=== PATIENT | female | born 1950 | race African-American/Black ===

== ENCOUNTER → 2016-06-23 15:11 | Outpatient (CLI) | payer MEDICARE ==
[~2016-06-23 15:11] MED LIST: CRANBERRY 400 M1 TA1 PO; CRESTOR20 MG PO; Demerol PO; ELIQUIS2.5 MG PO; FERROUS SULFAT325 MG PO; FLUTICASONE PRO16 GM NASAL; GLUCOPHAGE850 MG PO; HYDROCODONE-APA1 TAB PO; K-DUR20 MEQ PO; MULTIPLE VITAMI1 TA1 PO; MUPIROCIN22 GM TOPICAL; NEURONTIN600 MG PO; NOVOLOG100 U/M1 SC; SINGULAIR10 MG PO; SYMBICORT 16010.2 GM INH; VITAMIN D31000 UNIT PO; ZANTAC150 MG PO; ZYRTEC10 MG PO
[2016-07-01 16:32] VITALS: BMI 37.7
== END | disposition home or self-care (01) ==
LOC: D.LABREF 15:11
DX: M17.11 Unilateral primary osteoarthritis, right knee (principal); Z11.8 Encounter for screening for other infectious and parasitic diseases

== ENCOUNTER 2016-06-26 08:00 | Inpatient (IN) | payer MEDICARE ==
[~2016-06-26] VITALS: Ht 147.3 cm; Wt 81.8 kg
[~2016-06-26 08:00] MED LIST changes: -CRANBERRY 400 M1 TA1 PO; -Demerol PO; -ELIQUIS2.5 MG PO; -FLUTICASONE PRO16 GM NASAL; -K-DUR20 MEQ PO; -MULTIPLE VITAMI1 TA1 PO; -NOVOLOG100 U/M1 SC; -SYMBICORT 16010.2 GM INH; -VITAMIN D31000 UNIT PO
[2016-06-26 08:06] LABS: BASOPHILS 0.6 % (0.0-2.0); EOSINOPHILS 4.6 % (0-7); HEMATOCRIT 33.8 % (36.0-48.0); LYMPHOCYTES 40.7 % (15-50); MCH 26.5 pg (26.0-34.0); MCHC 32.5 g/dL (31.0-37.0); MCV 81.4 fL (80.0-100.0); MEAN PLATELET VOLUME 9.8 fL (7.4-10.4); MONOCYTES 14.8 % (2-11); NEUTROPHILS 39.3 % (40-80); PLATELET COUNT 232 10x3/uL (130-400); RBC 4.15 10x6/uL (4.00-5.40); WBC 4.8 10x3/uL (4.8-10.8)
[2016-06-26 08:20] LABS: APTT 29.6 SECONDS (22.8-39.4); INR 1.09 (0.85-1.17); PROTIME 13.9 SECONDS (11.6-15.0)
[2016-06-26 08:22] LABS: ANION GAP 11.4 mmol/L (8-16); CALCIUM 9.3 mg/dL (8.5-10.1); CARBON DIOXIDE 29.8 mmol/L (21.0-32.0); CREATININE - SERUM 1.1 mg/dL (0.6-1.3); POTASSIUM - SERUM 4.2 mmol/L (3.5-5.1)
[2016-06-26 08:51] LABS: APPEARANCE HAZY (CLEAR); BACTERIA FEW /hpf (NONE SEEN); BILIRUBIN NEGATIVE (NEGATIVE); COLOR YELLOW (YELLOW); EPITHELIAL CELLS OCC /hpf (0-5); GLUCOSE NEGATIVE (NEGATIVE); KETONE NEGATIVE (NEGATIVE); LEUKOCYTE ESTERASE NEGATIVE (NEGATIVE); NITRITE NEGATIVE (NEGATIVE); PROTEIN TRACE mg/dL (NEGATIVE); RED CELLS - URINE OCC /hpf (0-5); UROBILINOGEN NORMAL (NORMAL); WHITE CELLS - URINE OCC /hpf (0-5)
[2016-06-26] MEDS ORDERED: FLUTICASONE PRO16 GM NASAL (12:47)
[2016-06-26] MEDS ORDERED: K-DUR20 MEQ PO (12:48)
[2016-06-26] MEDS ORDERED: NOVOLOG100 U/M1 SC (12:48)
[2016-06-26] MEDS ORDERED: VITAMIN D31000 UNIT PO (12:49)
[2016-06-26] MEDS ORDERED: SYMBICORT 16010.2 GM INH (12:49)
[2016-06-26] MEDS ORDERED: MULTIPLE VITAMI1 TA1 PO (12:56)
[2016-06-26] MEDS ORDERED: CRANBERRY 400 M1 TA1 PO (12:56)
[2016-07-01 09:40] VITALS: BP 156/100; BMI 37.7
--- NOTE | 2016-07-01 13:57 | NUR ---
ANESTHESIA NOTIFIED OF PTS CONTINUED PAIN TO SIDE OF RT KNEE AFTER 2MG OF DILAUDID. ANESTHESIA AT BS, REPEAT BLOCK IN PROGRESS.
--- NOTE | 2016-07-01 14:21 | NUR ---
AFTER BLOCK,PTS PAIN NOW DOWN TO A 2/10. WILL TRANSFER TO ROOM.
[2016-07-01 14:40] VITALS: BP 127/70
--- NOTE | 2016-07-01 14:42 | NUR ---
RECIEVED TO ROOM 2208 FROM RECOVERY ROOM AWAKE AND ALERT PT VITAL SIGNS WITHIN NORMAL LIMITS STATES PAIN LEVEL 0 AT THIS TIME HAD FEM POP BLOCK. WILL MONITOR,.
[2016-07-01 16:32] VITALS: BP 137/69; Ht 147.3 cm; Wt 81.8 kg
--- NOTE | 2016-07-01 19:20 | NUR ---
PATIENT'S SON IS AT BEDSIDE. BROUGHT PATIENT WATER FOR HER CPAP MACHINE PER HER REQUEST. PATIENT DENIES OTHER NEEDS AT THIS TIME. BED IN LOWEST POSITION AND CALL LIGHT WITHIN REACH.
--- NOTE | 2016-07-01 19:35 | NUR ---
CPM IN PLACE MARKETING REPRESENTATIVE DILAUDID FOR PAIN CONTROL. RESTING WELL
[2016-07-01 21:00] VITALS: BP 133/70
[2016-07-02 01:00] VITALS: BP 122/66
--- NOTE | 2016-07-02 01:30 | NUR ---
NEVER RECEIVED CALL BACK FROM CHRISTOPHER NORTON, BUT TEMP DOWN TO 98.2.
--- NOTE | 2016-07-02 02:00 | NUR ---
PATIENT SLEEPING WITH NO DISTRESS NOTED. NEVER RECEIVED CALL BACK FROM CHRISTOPHER NORTON BUT TEMP IS DOWN TO 100.8.
[2016-07-02 05:00] VITALS: BP 149/77
[2016-07-02 06:13] LABS: BASOPHILS 0.1 % (0.0-2.0); EOSINOPHILS 0 % (0-7); HEMOGLOBIN 9.8 g/dL (12-16); IMMATURE GRANULOCYTES 0.1 % (0-5); LYMPHOCYTES 14.6 % (15-50); MCH 26.9 pg (26.0-34.0); MCHC 32.7 g/dL (31.0-37.0); MCV 82.4 fL (80.0-100.0); MEAN PLATELET VOLUME 10.4 fL (7.4-10.4); MONOCYTES 10.1 % (2-11); NEUTROPHILS 75.1 % (40-80); PLATELET COUNT 190 10x3/uL (130-400); RBC 3.64 10x6/uL (4.00-5.40); RDW 16.2 % (11.5-14.5); WBC 7.4 10x3/uL (4.8-10.8)
[2016-07-02 06:32] LABS: ALBUMIN 3.2 g/dL (3.4-5.0); ANION GAP 13.7 mmol/L (8-16); BILIRUBIN - TOTAL 0.29 mg/dL (0.2-1.3); CALCIUM 8.4 mg/dL (8.5-10.1); CARBON DIOXIDE 26.2 mmol/L (21.0-32.0); CREATININE - SERUM 1.1 mg/dL (0.6-1.3); POTASSIUM - SERUM 3.9 mmol/L (3.5-5.1); PROTEIN - SERUM 6.2 g/dL (6.4-8.2)
--- NOTE | 2016-07-02 07:30 | NUR ---
RECIEVED PT DURING WALKING ROUNDS, PT RESTING COMFORTABLY IN BED WITH COMPLAINTS OF PAIN OF A 7 ON A SCALE OF 1-10. INSTRUCTED PT TO USE PICKER AND SORTER LOAD AND UNLOAD PUMP. PT NOT ON CPM AT THIS TIME BECAUSE SHE HAS BEEN TRYING TO URINATE. ASSESSMENT DONE PER FLOWSHEET. FORKLIFT MATERIAL HANDLER PREFORMING BATH AT THIS TIME AND WILL PLACE PT ON CPM AFTER BATH. BED IN LOW POSTION AND FORKLIFT MATERIAL HANDLER AT BEDSIDE. WILL CONTINUE TO MONITOR.
[2016-07-02 08:00] VITALS: BP 162/73
--- NOTE | 2016-07-02 08:30 | NUR ---
SPOKE WITH CLARISA DONG AND WAS TOLD PT COULD WAIT UNTIL THIS EVENING TO GO ON CPM DUE TO PHYSICAL THERAPY ANOUT TO BE IN TO WORK WITH PT.
--- NOTE | 2016-07-02 10:12 | NUR ---
AWAKE AND ALERT. ORIENTED X3. NO C/O AT THIS TIME. SITTING UP IN CHAIR AT BEDSIDE. DRESSING TO RIGHT KNEE IS DRY AND INTACT. DENIES NEEDS. VERY LABILE AT THIS TIME.
[2016-07-02 12:30] VITALS: BP 160/83
--- NOTE | 2016-07-02 12:30 | NUR ---
RECIEVED ORDER FOR PO DEMEROL AT THIS TIME VIA TELEPHONE ORDER FROM DR. DIAZ.
--- NOTE | 2016-07-02 12:45 | NUR ---
DEMEROL PO GIVEN PER ORDER AT THIS TIME FOR PAIN OF A 9 ON A SCALE OF 1-10. PLATFORM BEATER DISCONTINUED AND WASTED IN PYXIS. IV FLUIDS D/C AND IV SALINE LOCKED. PT SITTING IN CHAIR. CALL LIGHT WITHIN REACH. WILL CONTINUE TO MONITOR.
--- NOTE | 2016-07-02 15:06 | NUR ---
* Is the patient Alert and Oriented? Yes 0 * How many steps to enter\exit or inside your home? 1 0 * PCP Dr. Rodriguez 0 * Pharmacy [facility] 0 * Preadmission Environment Home Alone 0 * ADLs Independent 0 * Equipment Cane CPAP Nebulizer 0 * List name and contact numbers for known caregivers / representatives who currently or will assist patient after discharge: Srinath Caruso [phone] 0 * Additional services required to return to the preadmission environment? Yes 0 * Can the patient safely return to the preadmission environment? Yes 0 * Has this patient been hospitalized within the prior 30 days at any hospital? No 07/02/2016 15:06 DCP: Discharge Planning Patient Name: MARBIN WILKINS Admission Status: Elective Accout number: [id number] Admission Date: 07-01-2016 : 1950 Admission Diagnosis:UNILATERAL PRIMARY OSTEOARTHRITIS, RIGHT KNEE Attending: KATHRYN Current LOS: 1 Anticipated DC Date: 07-04-2016 Planned Disposition: Penitentiary Facility Primary Insurance: MEDICARE A & B Discharge Planning Comments: CM met with patient to assess DC plans/needs. Patient states she lives at home with her son, Shady. She reports she was independent with ADL's prior to admission. She has a seated 4 wheeled walker, a cane, nebulizer & CPAP. Discussed dc options - she states she will not be able to return home at discharge - she states she will be alone all day. PC to Shady dumont. He states he works 2 jobs and will patient will be home alone about 20 hours per day. Discussed SNF options. She has chosen [facility]. Initial referral will be sent. Anticipate dc 07/03. CM will follow.
[2016-07-02 16:02] VITALS: BP 169/91
--- NOTE | 2016-07-02 16:30 | NUR ---
PT GIVEN ZOFRAN AT THIS TIME FOR NAUSEA. PT STATED SHE HAS BEEN EXPERIENCING AN OCCASIONAL COUGH AND SHE FEELS THAT IT IS WHAT HAS LEAD TO HER NAUSEA. BED IN LOW POSITION AND CALL LIGHT WITHIN REACH. WILL CONTINUE TO MONTIOR.
--- NOTE | 2016-07-02 18:00 | NUR ---
CPM ON AT THIS TIME, PT EXPERIENCING A LOT OF PAIN WHEN MOVING, ADMINISTERED MEDICATION PER ORDER PRIOR TO PLACING HER ON THE CPM. CALL PLACED TO DR. DIAZ ABOUT PT PAIN NOT BEING CONTROLLED. RECIEVED AN ORDER FOR TORADOL AFTER SPEAKING WITH PHARMACY, TORADOL IS UNABLE TO GIVE MEDICATION DUE TO ALLERGIES. DR. DIAZ GAVE ORDERS TO GIVE A ONE TIME DOSE OF DILAUDID. I WENT BACK INTO THE ROOM TO DISCUSS WITH PT AND PT WAS ASLEEP. WILL CONTINUE TO MONITOR.
--- NOTE | 2016-07-02 19:00 | NUR ---
PATIENT SLEEPING SUPINE IN BED ON CPM. AROUSES TO VOICE BUT IS VERY DROWSY. HOB 30 DEGREES. RR EVEN AND UNLABORED. 0 S/S OF DISTRESS. IV TO LEFT UPPER ARM S/L WITH NO REDNESS OR SWELLING. BANDAGE TO RIGHT KNEE CDI. SCD TO LLE. B/A ON. SRX3. BED LOW. CALL LIGHT WITHIN REACH.
[2016-07-02 22:09] VITALS: BP 182/87
--- NOTE | 2016-07-02 23:40 | NUR ---
ASSISTED PATIENT TO BATHROOM AND BACK TO BED. ASSESSMENT COMPLETE. NIGHTTIME MEDS GIVEN. 2 UNITS HUMALOG GIVEN FOR BS OF 191. 50MG DEMEROL GIVEN FOR PAIN. PATIENT HAD TEMP OF 102.9. PAGED CHRISTOPHER NORTON. UNCOVERED PATIENT AND PLACED ICE BEHIND NECK AND UNDER ARMS.
[2016-07-03 01:48] VITALS: BP 143/80
--- NOTE | 2016-07-03 03:00 | NUR ---
PATIENT SLEEPING WITH NO DISTRESS NOTED. CALL LIGHT WITHIN REACH.
[2016-07-03 04:00] VITALS: BP 136/80
[2016-07-03 05:36] LABS: BASOPHILS 0.1 % (0.0-2.0); EOSINOPHILS 0 % (0-7); HEMATOCRIT 28.7 % (36.0-48.0); HEMOGLOBIN 9.2 g/dL (12-16); IMMATURE GRANULOCYTES 0.2 % (0-5); LYMPHOCYTES 12.7 % (15-50); MCH 26.1 pg (26.0-34.0); MCHC 32.1 g/dL (31.0-37.0); MCV 81.5 fL (80.0-100.0); MEAN PLATELET VOLUME 9.9 fL (7.4-10.4); MONOCYTES 7.1 % (2-11); NEUTROPHILS 79.9 % (40-80); PLATELET COUNT 153 10x3/uL (130-400); RBC 3.52 10x6/uL (4.00-5.40); RDW 16.4 % (11.5-14.5)
[2016-07-03 05:42] LABS: WBC 12.6 10x3/uL (4.8-10.8)
[2016-07-03 06:02] LABS: ALBUMIN 2.9 g/dL (3.4-5.0); ANION GAP 12.5 mmol/L (8-16); BILIRUBIN - TOTAL 0.6 mg/dL (0.2-1.3); CALCIUM 8.7 mg/dL (8.5-10.1); CARBON DIOXIDE 27.6 mmol/L (21.0-32.0); CREATININE - SERUM 0.9 mg/dL (0.6-1.3); POTASSIUM - SERUM 4.1 mmol/L (3.5-5.1); PROTEIN - SERUM 5.5 g/dL (6.4-8.2)
--- NOTE | 2016-07-03 07:05 | NUR ---
SLEEPING AT THIS TIME. RESPIRATIONS EVEN AND NON LABORED. CPM TO RIGHT KNEE ON AND IN WORKING ORDER. SCD'S ON AND IN WORKING ORDER. BED ALARM ON AND SRX3 WITH BED IN LOWEST POSITION AND WHEELS LOCKED. CALL LIGHT IN REACH, WILL CONTINUE WITH PLAN OF CARE.
--- NOTE | 2016-07-03 08:20 | NUR ---
SCHEDULED MEDICATIONS ADMINISTERED AT THIS TIME. ASSESSMENT PERFORMED PER FLOWSHEET. UP IN CHAIR PER PHYSICAL THERAPY. CALL LIGHT IN REACH, DENIES FURTHER NEEDS AT THIS TIME. WILL CONTINUE WITH PLAN OF CARE.
[2016-07-03 08:28] VITALS: BP 162/78
--- NOTE | 2016-07-03 10:50 | NUR ---
REMAINS UP IN CHAIR AT THIS TIME. SLEEPING WITH RESPIRATIONS EVEN AND NON LABORED. CALL LIGHT IN REACH, WILL CONTINUE WITH PLAN OF CARE.
[2016-07-03 12:04] VITALS: BP 158/72
--- NOTE | 2016-07-03 12:20 | NUR ---
07/03/2016 12:18 DCP: Discharge Planning Patient Name: MARBIN WILKINS Encounter No: [id number] : 1950 Primary Insurance: MEDICARE A & B Anticipated DC Date: 07-04-2016 Planned Disposition: [facility] Facility External Planned Provider: [facility] DCP follow-up note: Rec'd call from Sherie with [facility]. Patient has been accepted. Anticipate transfer to a penitentiary bed tomorrow. Patient and family in agreement with discharge plan. No changes to plan. Case management will follow and assist as needed. Wendie Kaur
--- NOTE | 2016-07-03 12:54 | NUR ---
SITTING UP IN CHAIR. RESTING QUIETLY EYES CLOSED. RESPIRATIONS EVEN NONLABORED WITH NO ACUTE DISTRESS NOTED. NO SIGNS OF ACUTE PAIN. CALL LIGHT WITHIN REACH.
--- NOTE | 2016-07-03 13:25 | NUR ---
AMBULATING WITH PHYSICAL THERAPY AT THIS TIME. REMINDED PT TO USE INCENTIVE SPIROMETER 10X AN HOUR WHILE AWAKE.
--- NOTE | 2016-07-03 15:00 | NUR ---
USING INCENTIVE SPIROMETER AT THIS TIME WITH INSPIRATORY VOLUME OF 1,000ML. DENIES FURTHER NEEDS AT THIS TIME. CALL LIGHT IN REACH, WILL CONTINUE WITH PLAN OF CARE.
[2016-07-03 15:48] VITALS: BP 161/85
--- NOTE | 2016-07-03 17:10 | NUR ---
FSBS 211, COVERED WITH 4 UNITS OF HUMALOG PER SLIDING SCALE. PRN DEMEROL ADMINISTERED PER ORDER FOR PAIN 12/11. DENIES NEEDS AT THIS TIME. SCD'S AND BED ALARM ON. CALL LIGHT IN REACH, WILL CONTINUE WITH PLAN OF CARE.
--- NOTE | 2016-07-03 19:00 | NUR ---
PATIENT SLEEPING ON CPM. HOB 30 DEGREES. AROUSES TO VOICE. STATES PAIN IS A 9/10. IV TO RIGHT UPPER ARM S/L WITH NO REDNESS OR SWELLING. DRESSING TO RIGHT KNEE CDI. SCD'S ON. TELEMETRY ON. B/A ON. SRX3. BED LOW. CALL LIGHT WITHIN REACH.
--- NOTE | 2016-07-03 23:15 | NUR ---
ASSISTED PATIENT TO BSC AND BACK TO BED. NIGHTTIME MEDS GIVEN. 2 UNITS HUMALOG GIVEN FOR BS OF 168. DEMEROL GIVEN FOR PAIN. WILL REASSESS.
[2016-07-03 23:36] LABS: APPEARANCE CLEAR (CLEAR); BILIRUBIN NEGATIVE (NEGATIVE); COLOR YELLOW (YELLOW); GLUCOSE NEGATIVE (NEGATIVE); KETONE NEGATIVE (NEGATIVE); LEUKOCYTE ESTERASE NEGATIVE (NEGATIVE); NITRITE NEGATIVE (NEGATIVE); PROTEIN NEGATIVE (NEGATIVE); UROBILINOGEN NORMAL (NORMAL)
--- NOTE | 2016-07-04 04:08 | NUR ---
PATIENT SLEEPING WITH CPAP ON. NO NEEDS AT THIS TIME.
[2016-07-04 05:24] LABS: BASOPHILS 0.1 % (0.0-2.0); EOSINOPHILS 0.1 % (0-7); HEMATOCRIT 28.9 % (36.0-48.0); HEMOGLOBIN 9.2 g/dL (12-16); IMMATURE GRANULOCYTES 0.3 % (0-5); LYMPHOCYTES 15.1 % (15-50); MCH 25.8 pg (26.0-34.0); MCHC 31.8 g/dL (31.0-37.0); MCV 81.2 fL (80.0-100.0); MEAN PLATELET VOLUME 10.3 fL (7.4-10.4); MONOCYTES 10.3 % (2-11); NEUTROPHILS 74.1 % (40-80); PLATELET COUNT 153 10x3/uL (130-400); RBC 3.56 10x6/uL (4.00-5.40); RDW 16.5 % (11.5-14.5); WBC 10.1 10x3/uL (4.8-10.8)
[2016-07-04 05:54] LABS: ALBUMIN 2.9 g/dL (3.4-5.0); ALKALINE PHOSPHATASE 102 U/L (46-116); ALT (SGPT) 27 U/L (10-68); BILIRUBIN - TOTAL 0.61 mg/dL (0.2-1.3); CALC OSMOLALITY 270 mosm/kg (275-300); CALCIUM 10.2 mg/dL (8.5-10.1); CARBON DIOXIDE 27.9 mmol/L (21.0-32.0); CHLORIDE - SERUM 101 mmol/L (98-107); CREATININE - SERUM 0.7 mg/dL (0.6-1.3); GLUCOSE 135 mg/dL (74-106); POTASSIUM - SERUM 4.1 mmol/L (3.5-5.1); PROTEIN - SERUM 6.5 g/dL (6.4-8.2); SODIUM 135 mmol/L (136-145); UREA NITROGEN 10 mg/dL (7-18); eGFR NON AFRICAN AMERICAN 88 mL/min (90-120)
--- NOTE | 2016-07-04 07:47 | NUR ---
PT RECEIVED SITTING UP IN BED WATCHING TELEVISION. ALERT AND ORIENTED X4. LUNG SOUNDS CLEAR BILATERALLY. ABD SOUNDS ACTIVE IN ALL FOUR QUADRANTS. ABD SOFT AND NONTENDER UPON PALPATION. STATES LAST BM WAS YESTERDAY. PT ASSISTED TO BED GIMENEZ. CPM CURRENTLY IN USE. DENIES ANY OTHER NEEDS AT THIS TIME. CALL LIGHT IN REACH.
[2016-07-04 08:03] VITALS: BP 142/85
[2016-07-04] MEDS ORDERED: ELIQUIS2.5 MG PO (08:40)
[2016-07-04] MEDS ORDERED: Demerol PO (08:52)
--- NOTE | 2016-07-04 09:10 | NUR ---
WORKING WITH PHYSICAL THERAPY AT THIS TIME. DENIES QUESTIONS OR CONCERNS. RESPIRATIONS EVEN AND NON LABORED. CALL LIGHT IN REACH, WILL CONTINUE WITH PLAN OF CARE.
--- NOTE | 2016-07-04 11:37 | NUR ---
PT CURRENTLY SITTING UP IN ROOM WATCHING TELEVISION. NO S/S OF DISTRESS NOTED. PT DENIES NEEDS AT THIS TIME. BED IN LOW POSITION. SIDE RAILS UP X2. CALL LIGHT AND H20 IN REACH.
--- NOTE | 2016-07-04 13:47 | NUR ---
PT CURRENTLY SITTING UP IN ROOM WATCHING TELEVISION WITH SON. NO S/S OF DISTRESS NOTED. PT DENIES NEEDS AT THIS TIME. CALL LIGHT AND H20 IN REACH.
--- NOTE | 2016-07-04 15:07 | NUR ---
07/04/2016 14:44 DCP: Discharge Planning Patient Name: MARBIN WILKINS Encounter No: [id number] : 1950 Primary Insurance: MEDICARE A & B Anticipated DC Date: 07-04-2016 Planned Disposition: [facility] Facility External Planned Provider: [facility] DCP follow-up note: DC order rec'd. Patient and family in agreement with discharge plan. Patient\family notified of anticipated dc time. Patient will be transported by facility van - roller picker time approx. 1500. Nursing to call report to [phone]. Patient is discharging to a half-way bed. Wendie Kaur
--- NOTE | 2016-07-04 15:31 | NUR ---
PT DISCHARGED TO [facility]. GONE OVER DISCHARGE INSTRUCTIONS WITH RESIDENT, RESIDENT VERBALIZED UNDERSTANDING. DISCHARGE PAPERWORK GIVEN TO LODI STAFF MEMBER. RESIDENT LEFT WITH SON AND LODI ADMINISTRATIVE ASSISTANCE VIA WHEELCHAIR.
--- NOTE | 2016-07-04 15:33 | NUR ---
REPORT CALLED INTO [facility] WITH LAMBERT GALO.
--- NOTE | 2016-07-06 10:16 | OP ---
PATIENT NAME: MARBIN WILKINS MEDICAL RECORD: [id number] :[birth year] LOCATION:D.MS [id number] ADMISSION DATE:07/01/16 SURGEON: MOHINI DEL RIO MD DATE OF OPERATION: 07/01/2016 PREOPERATIVE DIAGNOSIS: Right knee degenerative joint disease. POSTOPERATIVE DIAGNOSIS: Right knee degenerative joint disease. PROCEDURE PERFORMED: Right total knee arthroplasty. SURGEON: Gordon Del Rio MD ANESTHESIA: General with a block for postop pain. CONDITION: She tolerated the procedure well, was transferred to the recovery room in stable condition at termination of the procedure. INDICATIONS: This is a 66-year-old female with advanced degenerative changes of her knee. She has been [id number] for quite some time. She is no longer tolerating injections and medicines or therapy. She presents at this time for a total knee replacement. We have discussed risks, benefits, and alternatives with her. She understands and wishes to proceed. OPERATIVE REPORT: The patient was taken to the operating room and placed in supine position. General anesthesia was obtained. She did have the block placed in the preop holding area. In the operating room, the right knee was confirmed to be the correct knee, following which she was prepped and draped in normal fashion. After the prep and drape, she had a secondary ChloraPrep and then she had clear dressing placed since she is allergic to iodine. She exsanguinated with an Carlos Alberto wrap. Tourniquet was elevated to 350. Procedure was then begun by making a midline incision followed by a medial parapatellar incision. Fat pad was excised. The medial soft tissue sleeve was elevated. I then entered the femur with a drill, placed the guide and made a distal femoral cut. It was sized to a 67.5, made the rest of the distal femoral cuts. She has a significant ____ I therefore went ahead and did a posterior stabilized. I did the box cut at this juncture for 67.5. I then subluxed the tibia forward, placed the guide and made the proximal tibial cut. This was sized at a 71, it was placed both components, took the knee through range of motion, then marked this following which, I punched and prepped for a 71 tibia. I removed significant posterior osteophytes as well. The backside of the patella was taken off. This was measured at a 31 three peg holes were drilled. I then proceeded to copiously irrigate the knee, following which, I cemented into place a 67.5 PS knee with a 71 tibia and a 12 poly while the cement dried. A 31 three peg hole patellar button was placed. The leg was held in extension while the cement dried. Once the cement was dry, the excess cement was removed. She was copiously irrigated and then the final 12 poly was placed. She felt very stable. She was irrigated and then closed with a #1 barbed PDS, then a 2-0 Vicryl, then ashley. She was awakened and transferred to recovery room in stable condition, having tolerated the procedure well. TRANSINT:[id number] Voice Confirmation ID: [id number] DOCUMENT ID: [id number] OPERATIVE REPORT [id number] MARBIN WILKINS, MOHINI KAUR MD at 1016 CC: [id number] DICTATION DATE: 07/01/16 1356 CLINICAL TRIAL HEAD: 07/01/16 2216 DIS IN 07/04/16 [place] [id number] [place] [address]
--- NOTE | 2016-08-01 12:12 | DS ---
PATIENT:MARBIN WILKINS :[birth year] MEDICAL RECORD: [id number] DISCHARGE SUMMARY ADMISSION DATE: 07/01/16 DISCHARGE DATE: 07/04/16 DATE OF ADMISSION: 07/01/2016. DATE OF DISCHARGE: 07/04/2016. ADMITTING DIAGNOSIS: Right knee degenerative joint disease. DISCHARGE DIAGNOSES: Right knee degenerative joint disease plus acute blood loss anemia. PROCEDURE PERFORMED: Right total knee arthroplasty. ADMITTING PHYSICIAN: Gordon Del Rio MD. HISTORY OF PRESENT ILLNESS: A pleasant 66-year-old female with advanced degenerative changes of her right knee. She came into the hospital and underwent a right total knee arthroplasty. She overall did very well with her procedure. It was felt by the 3rd that she could be discharged to [facility] to continue on rehab for the total knee arthroplasty. She was going to continue on Eliquis for anticoagulation therapy. Continue on her pain medications and see me back in the office in about 2 weeks. She was to call if she is having any problems. We discussed this discharge with discharge diagnosis of right knee degenerative joint disease and postop acute blood loss anemia. PLAN: To see us in 2 weeks' time. TRANSINT:[id number] Voice Confirmation ID: [id number] DOCUMENT ID: [id number] MOHINI DEL RIO MD at 1212 CC: [id number] DICTATION DATE: 07/22/16 1430 READING SPECIALIST: 07/23/16 0416 DIS IN 07/04/16 [place] [id number] [place] [id number]
== END 2016-07-04 15:37 | DRG 470 ==
LOC: D.SDCHOLD 07-01 08:00 → D.MS 07-01 08:15 → D.SDCHOLD 07-01 10:00 → D.MS 07-01 13:46
PROVIDERS: Emergency Medicine; ADMIT Orthopaedic Surgery Sports Medicine
PROC: 0SRC0J9 Replacement of Right Knee Joint with Synthetic Substitute, Cemented, Open Approach (ICD-10-PCS; principal; 2016-07-01 10:30)
DX: M17.11 Unilateral primary osteoarthritis, right knee (principal); D62 Acute posthemorrhagic anemia; E11.65 Type 2 diabetes mellitus with hyperglycemia; E11.40 Type 2 diabetes mellitus with diabetic neuropathy, unspecified; G47.33 Obstructive sleep apnea (adult) (pediatric); E78.5 Hyperlipidemia, unspecified; K21.9 Gastro-esophageal reflux disease without esophagitis

== ENCOUNTER → 2016-08-27 11:06 | Outpatient (CLI) | payer MEDICARE ==
[2016-07-01 16:32] VITALS: BMI 37.7
[~2016-08-27 11:06] MED LIST changes: +CRANBERRY 400 M1 TA1 PO; +Demerol PO; +ELIQUIS2.5 MG PO; +FLUTICASONE PRO16 GM NASAL; +K-DUR20 MEQ PO; +MULTIPLE VITAMI1 TA1 PO; +NOVOLOG100 U/M1 SC; +SYMBICORT 16010.2 GM INH; +VITAMIN D31000 UNIT PO
== END | disposition home or self-care (01) ==
LOC: D.LABREF 11:06
DX: M17.12 Unilateral primary osteoarthritis, left knee (principal)

== ENCOUNTER → 2016-11-11 13:42 | Outpatient (CLI) | payer MEDICARE ==
[2016-07-01 16:32] VITALS: BMI 37.7
[~2016-11-11 13:42] MED LIST changes: +PROTONIX40 MG PO; +VITAMIN B-12500 MCG PO
== END | disposition home or self-care (01) ==
LOC: D.LABREF 13:42
DX: M17.12 Unilateral primary osteoarthritis, left knee (principal); Z11.8 Encounter for screening for other infectious and parasitic diseases

== ENCOUNTER 2016-11-12 13:00 | Outpatient (CLI) | payer MEDICARE ==
[2016-07-01 16:32] VITALS: BMI 37.7
[2016-11-12 09:36] LABS: ANION GAP 14.2 mmol/L (8-16); CARBON DIOXIDE 27.9 mmol/L (21.0-32.0); CREATININE - SERUM 1.2 mg/dL (0.6-1.3); POTASSIUM - SERUM 4.1 mmol/L (3.5-5.1)
[2016-11-12 10:15] LABS: APPEARANCE CLEAR (CLEAR); COLOR YELLOW (YELLOW)
[2016-11-12 10:16] LABS: BACTERIA FEW /hpf (NONE SEEN); BILIRUBIN NEGATIVE (NEGATIVE); GLUCOSE NEGATIVE (NEGATIVE); KETONE NEGATIVE (NEGATIVE); LEUKOCYTE ESTERASE 1+ (NEGATIVE); NITRITE NEGATIVE (NEGATIVE); PROTEIN NEGATIVE (NEGATIVE); SPECIFIC GRAVITY 1.015 (1.005-1.020); UROBILINOGEN NORMAL (NORMAL)
[2016-11-12 10:17] LABS: MUCUS <1+ /lpf (NONE SEEN); RED CELLS - URINE RARE /hpf (0-5)
[2016-11-12 10:38] LABS: BASOPHILS 0.3 % (0-2); EOSINOPHILS 2.6 % (0-7); HEMATOCRIT 36.3 % (36.0-48.0); HEMOGLOBIN 11.8 g/dL (12-16); IMMATURE GRANULOCYTES 0.1 % (0-5); LYMPHOCYTES 23.1 % (15-50); MCH 26.2 pg (26.0-34.0); MCHC 32.5 g/dL (31.0-37.0); MCV 80.7 fL (80.0-100.0); MEAN PLATELET VOLUME 10.5 fL (7.4-10.4); MONOCYTES 5.7 % (2-11); NEUTROPHILS 68.2 % (40-80); PLATELET COUNT 186 10x3/uL (130-400); WBC 6.8 10x3/uL (4.8-10.8)
[2016-11-12 10:45] LABS: INR 1.02 (0.85-1.17); PROTIME 13.1 SECONDS (11.6-15.0)
[2016-11-12 10:47] LABS: APTT 29.4 SECONDS (22.8-39.4)
== END 2016-11-12 23:59 | disposition home or self-care (01) ==
LOC: D.PAN 13:00 → D.SDCHOLD 11-18 07:30 → EDSTATUS 11-18 08:30 → D.SDCHOLD 11-18 08:30
PROVIDERS: Orthopaedic Surgery
DX: M19.90 Unspecified osteoarthritis, unspecified site (principal); Z01.810 Encounter for preprocedural cardiovascular examination; Z01.811 Encounter for preprocedural respiratory examination; Z01.812 Encounter for preprocedural laboratory examination

== ENCOUNTER 2016-11-16 10:29 | Emergency (ER) | payer MEDICARE ==
[2016-07-01 16:32] VITALS: BMI 37.7
[2016-11-16 13:27] LABS: BASOPHILS 0.2 % (0-2); EOSINOPHILS 0.2 % (0-7); HEMATOCRIT 36.2 % (36.0-48.0); HEMOGLOBIN 11.7 g/dL (12-16); IMMATURE GRANULOCYTES 0.8 % (0-5); MCH 25.9 pg (26.0-34.0); MCHC 32.3 g/dL (31.0-37.0); MCV 80.1 fL (80.0-100.0); MEAN PLATELET VOLUME 10.8 fL (7.4-10.4); MONOCYTES 9.6 % (2-11); NEUTROPHILS 68.2 % (40-80); PLATELET COUNT 185 10x3/uL (130-400); RBC 4.52 10x6/uL (4.00-5.40); RDW 16.3 % (11.5-14.5); WBC 10.1 10x3/uL (4.8-10.8)
[2016-11-16 13:40] LABS: ALBUMIN 3.1 g/dL (3.4-5.0); BILIRUBIN - TOTAL 0.27 mg/dL (0.2-1.3); CALCIUM 10.5 mg/dL (8.5-10.1); CARBON DIOXIDE 27.1 mmol/L (21.0-32.0); CREATININE - SERUM 1.8 mg/dL (0.6-1.3); POTASSIUM - SERUM 4.1 mmol/L (3.5-5.1); PROTEIN - SERUM 6.7 g/dL (6.4-8.2)
== END 2016-11-16 19:17 | disposition home or self-care (01) ==
LOC: D.ER 10:29
PROVIDERS: Nurse Practitioner Family
DX: J06.9 Acute upper respiratory infection, unspecified (principal); M54.2 Cervicalgia; R59.0 Localized enlarged lymph nodes; E11.9 Type 2 diabetes mellitus without complications; I10 Essential (primary) hypertension

== ENCOUNTER → 2016-12-08 10:55 | Outpatient (CLI) | payer MEDICARE ==
[2016-07-01 16:32] VITALS: BMI 37.7
== END | disposition home or self-care (01) ==
LOC: D.RT 11-25 08:00 → D.LAB 11-25 09:00 → D.RT 10:55
DX: J45.909 Unspecified asthma, uncomplicated (principal); R53.83 Other fatigue

== ENCOUNTER → 2017-11-12 11:57 | Outpatient (CLI) | payer MEDICARE ==
[2016-07-01 16:32] VITALS: BMI 37.7
[~2017-11-12 11:57] MED LIST changes: +ASCORBIC ACID500 MG PO; +GINKGO BILOBA120 MG PO; +GLIMEPIRIDE1 MG PO; +LYRICA75 MG PO; +MYRBETRIQ25 MG PO; +PROVIGIL200 MG PO; +XARELTO10 MG PO
== END | disposition home or self-care (01) ==
LOC: D.LABREF 11:57
DX: M17.12 Unilateral primary osteoarthritis, left knee (principal); Z11.8 Encounter for screening for other infectious and parasitic diseases

== ENCOUNTER → 2017-12-07 16:06 | Outpatient (CLI) | payer MEDICARE ==
[2016-07-01 16:32] VITALS: BMI 37.7
== END | disposition home or self-care (01) ==
LOC: D.CT 16:06
DX: R91.8 Other nonspecific abnormal finding of lung field (principal)

== ENCOUNTER → 2018-01-07 19:10 | Outpatient (CLI) | payer MEDICARE ==
[2016-07-01 16:32] VITALS: BMI 37.7
== END | disposition home or self-care (01) ==
LOC: D.MAMMO 15:30
DX: Z12.31 Encounter for screening mammogram for malignant neoplasm of breast (principal)

== ENCOUNTER 2018-02-18 11:14 | Outpatient (CLI) | payer MEDICARE ==
[~2018-02-18] VITALS: Ht 144.8 cm; Wt 88.2 kg
--- NOTE | ~2018-02-18 | OP ---
PATIENT NAME: MARBIN WILKINS MEDICAL RECORD: [id number] :[birth year] LOCATION:D.CAT ADMISSION DATE: SURGEON: CHRISTIANNE MUNOZ MD DATE OF OPERATION: 02/18/2018 PROCEDURE: Left heart catheterization, selective coronary angiography, right femoral artery approach. CATHETERS: A 5-Ecuadorean sheath, 5/4 left and right Terrell, 5/4 pig. The procedure was well tolerated. PTCA stenting to the LAD. FINDINGS: Left ventriculography in 30-degree CHRISTIANSEN view shows global hypokinesis. LV function mildly reduced at 40%. CORONARY ANATOMY: LEFT MAIN: Left main is free of disease. LAD: The takeoff of first diagonal has a tight stenosis of 90%. CIRCUMFLEX: Free of disease with OM small vessel has about a 70% stenosis. RIGHT CORONARY ARTERY: Somewhat diffusely diseased. She is with diabetes and no flow obstructive disease. PLAN: Intervention LAD momentarily. DESCRIPTION OF PROCEDURE: A 5-Ecuadorean sheath was exchanged for a 6-Ecuadorean sheath. EBU 3.5 guide catheter provided good guide support. A 300 cm Whisper wire placed across the tightly occluded LAD down this portion of vessel. Stent deployed was a 3.0 x 12 Republic drug-eluting stent up to 16 atmospheres. Final angiography shows excellent resolution of an 80% to 90% stenosis causing residual. JANET flow was 3 throughout the procedure. Integrilin and heparin was used during the case. Plavix was loaded in the lab. Sheath was closed with ExoSeal device. TRANSINT:[id number] Voice Confirmation ID: [id number] DOCUMENT ID: [id number] CHRISTIANNE MUNOZ MD at 0802 CC: [id number] DICTATION DATE: 02/18/18 1409 LPN CARE MANAGER: 02/18/18 1545 DEP CLI 02/18/18 [place] [id number]
--- NOTE | ~2018-02-18 | HEMODYNAMI ---
PATIENT:MARBIN WILKINS MEDICAL RECORD: [id number] : 48 LOCATION:[facility] ADMISSION DATE: 02/18/18 Generatedon:02/18/201814:12 Patient name: MARBIN WILKINS Patient #: [id number] SSN: : 1950 Date of study: 02/18/2018 Page: Of Hemodynamic Procedure Report Patient Data Patient Demographics Procedure consent was obtained First Name: MARBIN Gender: Female Last Name: CLAUDETTE : 1950 Middle Initial: P Age: 68 year(s) Patient #: [id number] Race: Black Additional ID: [id number] Contact details [address]: [address] [place] [address] State: [place] City: [place] Zip code: [address] Past Medical History Allergies Allergen Reaction Date Comments Reported Other allergy 02/18/2018 ASA, BETADINE, DARVOCET, DARVON, IODINE, PCN, PERCOCET, TALWIN, TETRACYCLINE, VALIUM Admission Admission Data Admission Date: 02/18/2018 Admission Time: 11:14 Admit Source: Other Height (in.): 59 BSA: 1.81 (m2) Height (cm.): 149.86 BMI: 38.58 (kg/m2) Weight (lbs.): 191 Weight (kg.): 86.64 Lab Results Lab Result Date: 02/18/2018 Lab Result Time: 12:12 Biochemistry Name Units Result Min Max BUN mg/dl 25 --(----)-* 7 18 Creatinine mg/dl 1.1 --(--*-)-- 0.6 1.3 CBC Name Units Result Min Max Hematocrit % 34.2 *-(----)-- 42 54 Hemoglobin g/dl 11.1 *-(----)-- 13.5 17.5 Procedure Procedure Types Cath Procedure Diagnostic Procedure [facility] LH w/Coronaries PCI Procedure Coronary Stent Coronary Stent Initial Procedure Description Procedure Date Procedure Date: 02/18/2018 Procedure Start Time: 13:44 Procedure End Time: 14:08 Procedure Staff Name Function Isai Valerio MD Performing Physician Gerardo Watson RT Monitor Rhonda Wilmer RT Scrub Jigar Londono RN Nurse Breanna Spaulding RN Nurse Procedure Data Cath Procedure Fluoroscopy Diagnostic fluoroscopy Total fluoroscopy Time: 4.2 time: 4.2 min min Diagnostic fluoroscopy Total fluoroscopy dose: 751 dose: 751 mGy mGy Contrast Material Contrast Material Type Amount (ml) Isovue 300 82 Entry Location Entry Primary Successful Side Size Upsize Upsize Entry Closure Succes sful Closure Location (Fr) 1 (Fr) 2 (Fr) Remarks Device Remarks Femoral Right 5 Fr vein Femoral Right 5 Fr 6 Fr Exoseal artery Short Estimated blood loss: 10 ml Diagnostic catheters Device Type Used For End Catheter Placement MULTIPACK JL 4.0 5Fr Procedure catheter MULTIPACK 3DRC 5Fr Procedure catheter MULTIPACK Pigtail 5 Fr Procedure catheter Procedure Complications No complications Procedure Medications Medication Administration Route Dosage Oxygen etCO2 Nasal cannula 2 l/min Lidocaine 2% added to field 20 Heparin Flush Bag added to field 2 bags (1000units/500ml NS) 0.9% NaCl I.V. 100 ml/hr Versed I.V. 2 mg Fentanyl I.V. 100 mcg Heparin Bolus I.V. 4000 units Integrilin (Bolus I.V. 7.9 ml 2mg/ml) Plavix P.O. 600 mg Hemodynamics Rest BSA: 1.81 (m2) O2 Consumption: Estimated: 181.74 (ml/min) O2 Consumption indexed : Estimated:100.41 (ml/min/m) Heart Rate: 91 (bpm) Pressure Samples Time Site Value (mmHg) Purpose Heart Use Rate(bpm) 13:52 LV 125/34,38 Snapshot 82 13:52 AO 115/75(91) Pullback 81 13:52 LV 91/4,11 Pullback 81 Gradients Valve Time Site 1 Site 2 Mean SEP/DFP Peak To Heart Use (mmHg) (sec/min) Peak Rate (mmHg) (bpm) Aortic 13:52 LV AO 0 81 91/4,11 115/75(91) Calculations Valve P-P Mean Valve Index Valve Source Name Gradient Area Flow (cm2) Aortic 0 0 Snapshots Pre Cath Intra NCS Post Cath Vital Signs Time Heart Resp SPO2 etCO2 NIBP (mmHg) Rhythm Pain Sedation Rate (ipm) (%) (mmHg) Status Level (bpm) 13:43:23 65 12 100 30 155/96(132) NSR 0 (11) 10(A) , No pain 13:48:38 81 17 99 42 158/96(118) NSR 0 (11) 9(A) , No pain 13:52:38 81 15 98 9.1 127/104(120) NSR 0 (11) 9(A) , No pain 13:56:50 78 11 100 37.2 131/75(113) NSR 0 (11) 9(A) , No pain 14:00:54 78 14 97 43.3 121/82(118) NSR 0 (11) 9(A) , No pain 14:05:02 78 11 96 44.8 127/81(110) NSR 0 (11) 10(A) , No pain 14:09:09 77 15 98 46.3 143/91(119) NSR 0 (11) 10(A) , No pain Medications Time Medication Route Dose Verified Delivered Reason Notes Effectiveness by by 13:42:24 Oxygen etCO2 2 Isai Kimball used for Nasal l/min St Janes Londono RN procedure cannula 13:42:29 Lidocaine 2% added 20ml Isai Buffie used for to vial [facility] Janes Londono recruiter manager field GALAN 13:42:35 Heparin Flush added 2 Isai Buffie used for Bag to bags St Janes Londono RN procedure (1000units/500ml field GALAN NS) 13:42:43 0.9% NaCl I.V. 100 Isai Kimball Per physician ml/hr St Janes Londono RN, MD 13:47:55 Versed I.V. 2 mg Isai Kimball for sedation St Janes Londono RN, MD 13:48:03 Fentanyl I.V. 100 Isai Kimball for sedation mcg St Janes Londoon RN, MD 13:55:10 Heparin Bolus I.V. 4000 Isai Carlos for verif ied units St Janes Spaulding anticoagulation with Dr. MD RANDLE Plainedge 13:59:20 Integrilin I.V. 7.9 sIai Carlos for waste d (Bolus 2mg/ml) ml [facility] Janes Spaulding anticoagulation 2.1mL MD RANDLE 14:01:50 Plavix P.O. 600 Isai Carlos for mg [facility] Janes Spaulding antiplatelet RN therapy Procedure Log Time Note 13:05:50 Informed consent obtained and on chart 13:05:54 Admit Source: Other 13:06:42 Diagnostic Cath status Elective 13:10:02 Jigar Londono RN sent for patient. Start room use. 13:11:53 Patient Height : 59 inches 13:11:56 Patient Weight : 191 lbs 13:12:39 Patient allergic to Other allergyASA, BETADINE, DARVOCET, DARVON, IODINE, PCN, PERCOCET, TALWIN, TETRACYCLINE, VALIUM 13:21:53 Patient received from Pre/Post Procedure Room to CCL 1 Alert and oriented. Tansferred to table in Supine position. 13:21:54 Warm blankets applied, and janet hugger turned on for patient comfort. 13:21:55 Correct patient and procedure confirmed by team. 13:21:56 ECG and BP/O2 sat monitors applied to patient. 13:22:05 H&P Date Dictated: 02/12/2018 Within 30 days and on chart., H&P Addendum completed by physician on day of procedure. (MUST COMPLETE FOR ALL OUTPATIENTS). 13:32:54 IV Left upper arm D/C'd due to infiltration. 13:33:54 Lab Result : Creatinine 1.1 mg/dl 13:33:54 Lab Result : BUN 25 mg/dl 13:33:54 Lab Result : Hemoglobin 11.1 g/dl 13:33:54 Lab Result : Hematocrit 34.2 % 13:33:57 Lab results completed and on chart. 13:34:12 Pre-procedure instructions explained to patient. 13:34:12 Pre-op teaching completed and patient verbalized understanding. 13:34:13 Family in waiting room. 13:34:15 Patient NPO since Breakfast. 13:34:18 Is the patient allergic to Iodine/contrast media? Yes. 13:34:19 Was the patient premedicated? Yes 13:34:45 Is patient on blood thinner?Yes 13:34:48 ACC The patient was administered the following blood thiners within the last 24 hours: Xarelto 13:34:50 Patient diabetic? Yes. 13:34:51 If diabetic: On Metformin? Yes 13:35:05 Previous problem with sedation/anesthesia? No ? 13:35:06 Snore? Yes 13:35:07 Sleep apnea? Yes 13:35:08 Deviated septum? No 13:35:09 Opens mouth fully? Yes 13:35:10 Sticks out tongue? Yes 13:35:11 Airway obstruction? No ? 13:35:14 Dentures? No ? 13:35:24 If on Metformin: Last Dose? 02/16/2018 13:35:33 Modified Bassem's test Ulnar < 7 seconds 13:35:34 Patient pain scale 0/10 ?. 13:35:55 ACC The patient was administered the following blood thiners within the last 24 hours: ACCPlavix 13:42:10 Vital chart was started 13:42:24 Oxygen 2 l/min etCO2 Nasal cannula was administered by Jigar Londono RN; used for procedure; 13:42:29 Lidocaine 2% 20ml vial added to field was administered by Jigar Londono RN; used for procedure; 13:42:35 Heparin Flush Bag (1000units/500ml NS) 2 bags added to field was administered by Jigar Londono RN; used for procedure; 13:42:43 0.9% NaCl 100 ml/hr I.V. was administered by Jigar Londono RN; Per physician; 13:43:44 Physician arrived 13:43:45 --------ALL STOP TIME OUT------ 13:43:45 Final Timeout: patient, procedure, and site verified with staff and physician. All members of the team are in agreement. 13:43:53 Right groin site verified by team. 13:43:57 Physical assessment completed. ASA score P 2 - A patient with mild systemic disease as per Isai Valerio MD. 13:44:03 Sedation plan: IV Moderate Sedation Medication:Versed, Fentanyl 13:44:10 Procedure started. 13:44:10 Full Disclosure recording started 13:44:19 Local anesthetic to right femoral artery with Lidocaine 2% by Isai Valerio MD.INITIAL ACCESS ONLY 13:44:33 Local anesthetic to right femoral vein with Lidocaine 2% by Isai Valerio MD.ADDITIONAL ACCESS 13:45:26 A 5 Fr sheath was inserted into the Right Femoral vein 13:45:51 SHEATH Prelude 5Fr 0.035 (UCD-6E-07-035) opened to sterile field. 13:47:05 Baseline sample Acquired. 13:47:08 Rhythm: sinus rhythm 13:47:20 A 5 Fr sheath was inserted into the Right Femoral artery 13:47:26 Use device set Femoral Dx 13:47:26 ACIST Syringe (65380) opened to sterile field. 13:47:27 Bag Decanter () opened to sterile field. 13:47:27 Medline Cath Pack ([id number]) opened to sterile field. 13:47:29 ACIST Hand Control (53501) opened to sterile field. 13:47:29 ACIST Manifold (56274) opened to sterile field. 13:47:30 Tegaderm 4 x 4 (1626W) opened to sterile field. 13:47:31 SHEATH Prelude 5Fr 0.035 (HDX-6C-65-035) opened to sterile field. 13:47:32 DIAGNOSTIC WIRE .035 260cm J wire (226784) opened to sterile field. 13:47:33 DIAGNOSTIC Multipack 5Fr catheter set (JA1867) opened to sterile field. 13:47:44 Zero performed for pressure channel P1 13:47:55 Versed 2 mg I.V. was administered by Jigar Londono RN; for sedation; 13:47:56 A MULTIPACK JL 4.0 5Fr catheter was advanced over the wire and used for Procedure. 13:48:03 Fentanyl 100 mcg I.V. was administered by Jigar Londono RN; for sedation; 13:48:13 LCA angiography performed. 13:49:07 Catheter exchanged over wire. 13:49:16 Baseline sample Acquired. 13:50:23 Catheter exchanged over wire. 13:50:28 A MULTIPACK 3DRC 5Fr catheter was advanced over the wire and used for Procedure. 13:50:52 RCA angiography performed. 13:50:54 Catheter exchanged over wire. 13:50:59 A MULTIPACK Pigtail 5 Fr catheter was advanced over the wire and used for Procedure. 13:52:17 LV gram done using CHRISTIANSEN 13:52:20 Injector settings: Ml/sec: 10, Volume: 20, 13:52:27 LV hemodynamics recorded. 13:52:34 EF : 40 % 13:52:38 Catheter removed. 13:54:14 SHEATH Prelude 6Fr 0.035 (ZUS-1W-28-035) opened to sterile field. 13:54:22 WHISPER 300cm guide wire ([id number]) opened to sterile field. 13:54:23 INFLATOR Merit BasixCompak (JS0368) opened to sterile field. 13:54:33 Sheath upsized to a 6 Fr Short. 13:54:46 GUIDE 6FR EBU 3.5 catheter ([id number]) opened to sterile field. 13:55:10 Heparin Bolus 4000 units I.V. was administered by Breanna Spaulding RN; for anticoagulation; verified with Dr. Barnes 13:56:22 6 Fr ebu 3.5 guide catheter was inserted over the wire 13:56:43 whisper wire advanced. 13:57:11 Wire advanced across lesion. 13:59:20 Integrilin (Bolus 2mg/ml) 7.9 ml I.V. was administered by Breanna Spaulding RN; for anticoagulation; wasted 2.1mL 14:00:33 Place stent Inflation Number: 1 A ALEXEI RX 3.0 x 12 stent ([id number]) was prepped and advanced across the Prox LAD. The stent was deployed at 16 BENEDICT for 0:30 (min:sec). 14:01:01 Stent catheter was removed intact over wire. 14:01:02 Wire removed. 14:01:03 Guide catheter removed. 14:01:14 EXOSEAL 6Fr (EX600) opened to sterile field. 14:01:26 Sheath removed intact; hemostasis achieved with Exoseal to the Right Femoral artery. 14:01:48 Procedure ended.(Physican Out) 14:01:50 Plavix 600 mg P.O. was administered by Breanna Spaulding RN; for antiplatelet therapy; 14:05:21 Fluoroscopy time 04.20 minutes. 14:05:25 Fluoroscopy dose: 751 mGy 14:05:25 Flurop Dose total: 751 14:05:28 Contrast amount:Isovue 300 82ml. 14:05:30 Sharps counted by scrub and verified by R.N. 14:05:31 Insertion/operative site no bleeding no hematoma. 14:05:40 Post right femoral artery:stable, soft, clean and dry 14:05:46 Post right femoral vein:stable, soft, clean and dry 14:05:51 Post-op/insertion site Right Femoral artery dressed using a 4 x 4 and Tegaderm. 14:05:59 Post-op/insertion site Right Femoral vein dressed using a 4 x 4 and Tegaderm. 14:06:01 Post Procedure Pulses reassessed and unchanged 14:06:03 Post-procedure physical assessment completed. ASA score P 2 - A patient with mild systemic disease as per Isai Valerio MD. 14:06:05 Post procedure rhythm: unchanged. 14:06:32 Estimated blood loss: 10 ml 14:06:34 Post procedure instruction explained to patient.Patient verbalizes understanding. 14:06:35 Patient needs reinforcement of post procedure teaching. 14:06:58 Procedure type changed to Cath procedure, Diagnostic procedure, LHC, LHC w/Coronaries, PCI procedure, Coronary Stent, Coronary Stent Initial 14:08:26 Procedure Complication : No complications 14:08:28 Vital chart was stopped 14:08:29 See physician's report for complete and final results. 14:08:30 Report given to Pre/Post Procedure Room. 14:08:33 Patient transfered to Pre/Post Procedure Room with Stretcher. 14:08:35 Procedure ended. 14:08:35 Full Disclosure recording stopped 14:08:39 End room use (Document Last) Intervention Summary Intervention Notes Time ActionType Lesion and Equipment Used Action# Pressure Duration Attributes 14:00:33 Place stent Prox LAD ALEXEI RX 3.0 x 1 16 00:30 12 stent ([id number]) Device Usage Item Name Manufacture Quantity Catalog Number Hospital Part Current Minimal Lot# / Charge Number Stock Stock Serial# Code ACIST Syringe Acist 1 68639 [id number] 435684 536686 20 (80039) [employer] Bag Decanter Microtek 1 2001S 024979 94344 110797 5 (2001S) Medical Inc. Medline Cath Medline 1 [id number] 889215 54978 101942 5 Pack ([id number]) ACIST Hand Acist 1 08522 976443 714452 706708 5 Control (31757) [employer] Inc ACIST Manifold Acist 1 74206 432543 817770 506239 5 (26102) [employer] Inc Tegaderm 4 x 4 3M 1 1626W 657931 797116 178801 5 (1626W) SHEATH Prelude Merit 2 TRA-7W-00-035 993090 304491 987839 5 5Fr 0.035 Medical (UIM-1T-37-035) DIAGNOSTIC WIRE [facility] 1 316778 779958 813146 020183 30 .035 260cm J wire (263749) DIAGNOSTIC Cardinal 1 TB0182 021767 34758 004854 30 Multipack 5Fr Health catheter set (LC8334) MULTIPACK JL Cardinal 1 034222 5 4.0 5Fr Health catheter MULTIPACK 3DRC Cardinal 1 974724 5 5Fr catheter Health MULTIPACK Cardinal 1 398527 5 Pigtail 5 Fr Health catheter SHEATH Prelude Merit 1 WZW-2H-83-35 493065 9117493 631761 5 6Fr 0.035 Medical (AKS-3S-63-035) WHISPER 300cm Lao 1 [id number] 323770 270959 348954 5 guide wire Vascular ([id number]) INFLATOR Merit Merit 1 IQ4952 726990 470861 111377 15 BasixCompak Medical (ET5387) GUIDE 6FR EBU Medtronic 1 [id number] 044089 55524 508593 3 3.5 catheter (QD1FQR21) ALEXEI RX 3.0 x Medtronic 1 [id number] 668340 9346880 542726 5 [id number] 12 stent ([id number]) EXOSEAL 6Fr Cardinal 1 EX600 038641 062020 182299 10 (EX600) Health Signature Audit [place] Stage Time Signature Unsigned Intra-Procedure 02/18/2018 Gerardo Watson 2:12:40 PM RT(R) Signatures Monitor : Gerardo Watson RT Signature : Date : Time : [place] [id number] [place] [address]
[2018-02-18] MEDS ORDERED: BACLOFEN10 MG PO (11:36)
[2018-02-18] MEDS ORDERED: GLUCOPHAGE850 MG PO (11:38)
[2018-02-18] MEDS ORDERED: K-DUR20 MEQ PO (11:40)
[2018-02-18] MEDS ORDERED: [UNRECOGNIZED DRUG - OTHER] SC (11:44)
[2018-02-18 11:52] VITALS: BP 183/102; Ht 144.8 cm; Wt 88.2 kg
[2018-02-18 12:20] LABS: BASOPHILS 0 % (0-2); EOSINOPHILS 0 % (0-7); HEMATOCRIT 34.2 % (36.0-48.0); HEMOGLOBIN 11.1 g/dL (12-16); IMMATURE GRANULOCYTES 0.2 % (0-5); LYMPHOCYTES 14.4 % (15-50); MCH 27.1 pg (26.0-34.0); MCHC 32.5 g/dL (31.0-37.0); MCV 83.4 fL (80.0-100.0); MEAN PLATELET VOLUME 10.4 fL (7.4-10.4); MONOCYTES 0.7 % (2-11); NEUTROPHILS 84.7 % (40-80); PLATELET COUNT 157 10x3/uL (130-400); RDW 16.6 % (11.5-14.5); WBC 4.5 10x3/uL (4.8-10.8)
[2018-02-18 12:36] LABS: ANION GAP 13.6 mmol/L (8-16); CALCIUM 9.6 mg/dL (8.5-10.1); CARBON DIOXIDE 27.8 mmol/L (21.0-32.0); CREATININE - SERUM 1.1 mg/dL (0.6-1.3); POTASSIUM - SERUM 4.4 mmol/L (3.5-5.1)
[2018-02-18] MEDS ORDERED: PLAVIX75 MG PO (14:36)
== END 2018-02-18 18:30 | disposition home or self-care (01) ==
LOC: D.CATH 11:14
PROVIDERS: Internal Medicine Interventional Cardiology
DX: I25.110 Atherosclerotic heart disease of native coronary artery with unstable angina pectoris (principal); R06.00 Dyspnea, unspecified
CPT/HCPCS: 93458; C9600

== ENCOUNTER → 2018-04-12 12:49 | Outpatient (CLI) | payer MEDICARE ==
[2018-02-18 11:52] VITALS: BMI 42.1
[~2018-04-12 12:49] MED LIST changes: +BACLOFEN10 MG PO; +PLAVIX75 MG PO; +[UNRECOGNIZED DRUG - OTHER] SC
[2018-04-12 14:24] LABS: T4 THYROXINE 6.7 ug/dL (4.7-13.3); THYROID STIMULATING HORMONE 3.16 uIU/mL (0.36-3.74)
== END | disposition home or self-care (01) ==
LOC: D.RT 12:49
PROVIDERS: Internal Medicine Pulmonary Disease
DX: J44.9 Chronic obstructive pulmonary disease, unspecified (principal)

== ENCOUNTER → 2018-04-23 18:55 | Outpatient (CLI) | payer MEDICARE ==
[2018-02-18 11:52] VITALS: BMI 42.1
== END | disposition home or self-care (01) ==
LOC: D.LABREF 18:55
DX: M17.12 Unilateral primary osteoarthritis, left knee (principal); Z11.8 Encounter for screening for other infectious and parasitic diseases

== ENCOUNTER → 2018-11-24 16:19 | Outpatient (CLI) | payer MEDICARE ==
[2018-02-18 11:52] VITALS: BMI 42.1
[~2018-11-24 16:19] MED LIST changes: +ALDACTONE25 MG PO; +CHERRY EXTRACT; +COLACE100 MG PO; +GINKGO BILOBA120 MG; +HYDROCODON-ACE1 EA10 PO; +HYDROCODON-ACE1 EAC7 PO; +LASIX20 MG; +LASIX20 MG PO; +LOVENOX80 MG/0.8 SC; +MULTI-DAY VITAM1 TAB PO; -MULTIPLE VITAMI1 TA1 PO; +SOLIQUA 100 UNIT3 ML SQ; +SUPER B COMPLE150 MG PO; +VITAMIN C WIT1000 MG PO; +VOLTAREN100 MG PO; -[UNRECOGNIZED DRUG - OTHER] SC
[2018-11-24 17:18] LABS: CHOL - HDL RATIO 1.6 ratio (2.3-4.1); LDL-HDL RATIO 0.5 ratio (1.5-3.5)
== END | disposition home or self-care (01) ==
LOC: D.LABREF 16:19
PROVIDERS: ATTEND Internal Medicine Interventional Cardiology
DX: I25.10 Atherosclerotic heart disease of native coronary artery without angina pectoris (principal)

== ENCOUNTER 2018-12-17 16:29 | Inpatient (IN) | payer MEDICARE ==
[~2018-12-17] VITALS: Ht 147.3 cm; Wt 101.7 kg
[~2018-12-17 16:29] MED LIST changes: -COLACE100 MG PO; -GINKGO BILOBA120 MG; -HYDROCODON-ACE1 EA10 PO; -HYDROCODON-ACE1 EAC7 PO; -LOVENOX80 MG/0.8 SC
[2018-12-22] MEDS ORDERED: SOLIQUA 100 UNIT3 ML SQ (11:36)
[2018-12-22 12:41] LABS: BASOPHILS 0.4 % (0-2); EOSINOPHILS 2.4 % (0-7); HEMATOCRIT 31.1 % (36.0-48.0); HEMOGLOBIN 10.2 g/dL (12-16); IMMATURE GRANULOCYTES 0.2 % (0-5); LYMPHOCYTES 37.5 % (15-50); MCH 26.4 pg (26.0-34.0); MCHC 32.8 g/dL (31.0-37.0); MCV 80.6 fL (80.0-100.0); MEAN PLATELET VOLUME 9.5 fL (7.4-10.4); MONOCYTES 7.2 % (2-11); NEUTROPHILS 52.3 % (40-80); RBC 3.86 10x6/uL (4.00-5.40); RDW 17.9 % (11.5-14.5); WBC 5.3 10x3/uL (4.8-10.8)
[2018-12-22 12:51] LABS: ANION GAP 11.1 mmol/L (8-16); CALCIUM 11.4 mg/dL (8.5-10.1); CREATININE - SERUM 1.1 mg/dL (0.6-1.3); POTASSIUM - SERUM 4.1 mmol/L (3.5-5.1)
[2018-12-22 13:05] LABS: APTT 42.8 SECONDS (22.8-39.4); INR 1.61 (0.85-1.17); PROTIME 18.6 SECONDS (11.6-15.0)
[2018-12-22 13:09] LABS: PLATELET COUNT 145 10x3/uL (130-400)
[2018-12-22 14:09] LABS: APPEARANCE CLEAR (CLEAR); BILIRUBIN NEGATIVE (NEGATIVE); COLOR DK YELLOW (YELLOW); GLUCOSE NEGATIVE (NEGATIVE); KETONE NEGATIVE (NEGATIVE); NITRITE NEGATIVE (NEGATIVE); PROTEIN NEGATIVE (NEGATIVE); SPECIFIC GRAVITY 1.015 (1.005-1.020); UROBILINOGEN NORMAL (NORMAL)
[2018-12-22 14:14] LABS: D-DIMER-QUANTITATIVE 0.3 ug/mLFEU (0.20-0.54)
[2018-12-28] MEDS ORDERED: GINKGO BILOBA120 MG (10:07)
[2018-12-28] MEDS ORDERED: ASCORBIC ACID500 MG PO (10:07)
[2018-12-28] MEDS ORDERED: COLACE100 MG PO (10:08)
[2018-12-28 17:46] VITALS: BP 106/65
[2018-12-28 18:03] VITALS: BP 119/78
[2018-12-28 18:17] VITALS: BP 106/65; BMI 48.1
[2018-12-28 18:18] VITALS: BP 115/85
[2018-12-28 21:37] VITALS: BP 129/88
[2018-12-29 00:49] VITALS: BP 140/74
[2018-12-29 05:16] VITALS: BP 115/73
[2018-12-29 07:12] LABS: HEMATOCRIT 29.3 % (36.0-48.0); HEMOGLOBIN 9.5 g/dL (12-16); MCH 26.5 pg (26.0-34.0); MCHC 32.4 g/dL (31.0-37.0); MCV 81.6 fL (80.0-100.0); MEAN PLATELET VOLUME 9.7 fL (7.4-10.4); PLATELET COUNT 155 10x3/uL (130-400); RBC 3.59 10x6/uL (4.00-5.40); RDW 18.2 % (11.5-14.5); WBC 7.8 10x3/uL (4.8-10.8)
[2018-12-29 08:00] LABS: ANION GAP 13.4 mmol/L (8-16); CALCIUM 9.1 mg/dL (8.5-10.1); CARBON DIOXIDE 26.4 mmol/L (21.0-32.0); CREATININE - SERUM 1.3 mg/dL (0.6-1.3); POTASSIUM - SERUM 4.8 mmol/L (3.5-5.1)
[2018-12-29 08:16] VITALS: BP 118/68
--- NOTE | 2018-12-29 09:37 | OP ---
PATIENT NAME: MARBIN ECKERT MEDICAL RECORD: [id number] :48 LOCATION:D.MS [id number] ADMISSION DATE:12/28/18 SURGEON: MIR SPARKS DO DATE OF OPERATION: 12/28/2018 PROCEDURE PERFORMED: Left total knee arthroplasty. PREOPERATIVE DIAGNOSIS: Left knee osteoarthritis. POSTOPERATIVE DIAGNOSIS: Left knee osteoarthritis. INDICATIONS: Ms. Eckert is a 68-year-old female who has had left knee OA for a long long time, then has been treated conservatively. She has been scheduled for total knee twice, but due to medical problems she had been canceled. She finally got medical clearance and was excited to get her knee done as they have been affecting her activities of daily living and she was ready to have something done. She was aware of the risks including infection, bleeding, damage to nerves and vessels, blood clots, and even , fracture, and need for further surgery and she signed the consent. SURGEON: Mir Sparks DO DESCRIPTION OF PROCEDURE: The patient was taken to the operative suite after having a block by anesthesia, laid in supine position, given general anesthetic and LMA was placed. The left lower extremity was prepped and draped in sterile fashion. Timeout was performed and everyone was agreeance with the correct side, site, patient and procedure. SHE HAS AN ALLERGY TO BETADINE, so Ioban was not used. An incision was then made with a 10 blade scalpel down the capsule. Capsule was cleaned off and a medial parapatellar approach was used to go through the capsule with a fresh 10 blade scalpel. Once that was done, the patella was everted and milled down. Fat pad was partially removed. Medial release was done due to severe valgus or varus deformity. The femur was then flexed and the intramedullary canal was entered and the distal cutting block was pinned in place. The distal femur was then cut and then the proximal tibia was cut. The tibia was then brought out to extension and the menisci were removed with Bovie and pituitary. Then, an extension block was put in. The MCL was released to balance the knee. Once the knee was balanced, the knee was then flexed up and the femur sized to be a 65. A 4-in-1 cutting block was then put on and an lurdes wing was used to ensure that it did not notch, it did not. The femur was then cut and then the PS block was used to cut out the post, the post was then cut out and then the trial was placed on and the tibia was floated in and marked rotation. The patella was then drilled for the implant and the tibia was exposed, sized to be 67. It was reamed and punched and then cement was mixed, placed in the tibia and on the implant impacted in place. Excess cement was removed. The same was done for the femur. Femur was cemented in place. Excess cement was removed as it was impacted on. The poly was then put in between them and the knee was brought to extension. The patella was then cemented on as well and held in place with a squeezer. While the cement dried, the knee was thoroughly irrigated with normal saline. When the cement dried, we trialed a 10-12, 12 fit better. The 12 posterior stabilized, poly was put in and locked into place. This was then ranged and had good stability mediolaterally to extension and flexion. The capsule was then irrigated and then the vancomycin and tobramycin powder placed in the knee and Surgicel powder was placed in the knee. The capsule was then closed with #2 Ethibond in a [id number]-[id number] fashion. Skin was then closed with 2-0 Vicryl in an interrupted OPERATIVE REPORT [id number] MARBIN ECKERT fashion. ZipLine was placed on the knee. Adaptic, 4 x 4s, ABD, Webril, and Carlos Alberto wrap. STEFANIE hose stocking placed up to the knee. The patient was awakened and taken to recovery in stable condition. Blood loss was approximately 200 mL. COMPLICATIONS: None. TRANSINT:[id number] Voice Confirmation ID: [id number] DOCUMENT ID: [id number] MIR SPARKS DO at 0937 CC: [id number] DICTATION DATE: 12/28/18 1558 LABEL PRESS OPERATOR: 12/28/18 1723 ADM IN [place] [id number]
[2018-12-29 12:34] VITALS: BP 138/62
[2018-12-29 13:50] VITALS: BMI 48.0
[2018-12-29 14:07] LABS: % SATURATION 5 % (15-55); IRON 16 ug/dl (35-150); TOTAL IRON BIND CAPACITY 278 ug/dl (260-445); UNSAT IRON BIND CAPACITY 262 ug/dl (150-375)
[2018-12-29 16:18] VITALS: BP 112/61
[2018-12-29 22:07] VITALS: BP 145/69
[2018-12-30 01:27] VITALS: BP 151/83
[2018-12-30 03:37] LABS: APPEARANCE CLEAR (CLEAR); COLOR YELLOW (YELLOW)
[2018-12-30 03:38] LABS: BILIRUBIN NEGATIVE (NEGATIVE); GLUCOSE NEGATIVE (NEGATIVE); KETONE NEGATIVE (NEGATIVE); NITRITE NEGATIVE (NEGATIVE); PROTEIN NEGATIVE (NEGATIVE); UROBILINOGEN NORMAL (NORMAL)
[2018-12-30 05:45] VITALS: BP 145/84
[2018-12-30 09:39] VITALS: BP 142/102
[2018-12-30 12:56] VITALS: BP 121/65
--- NOTE | 2018-12-30 16:58 | MORECARE ---
CASE MANAGEMENT DISCHARGE SUMMARY PATIENT: MARBIN WILKINS UNIT: [id number] ADM DATE: 12/28/18 AGE: 68 : [birth year] SEX: F ROOM/BED: D.2211 AUTHOR: DA PIERRE PHYSICIAN: REFERRING PHYSICIAN: ASHLEE SPARKS DO DATE OF SERVICE: 12/30/18 Discharge Plan Patient Name: MARBIN WILKINS Facility: [facility]:[place] : 1950 Planned Disposition: Anticipated Discharge Date: Discharge Date: Expected LOS: Initial Reviewer: [email or web address] Initial Review Date: 12/28/2018 Generated: 12/30/18 5:57 pm Comments DCP- Discharge Planning Updated by [email or web address]: Janki Lancaster on 12/30/18 3:[address] attempted to see patient she was sleeping with a bipap on, there was not family at bedside will try again tomorrow Patient Name: MARBIN WILKINS Page [id number] at 1658 All edits/amendments must be made on the electronic document DICTATION DATE: 12/30/181656 SALES AND SERVICE ADVISOR: FEDERICO 12/30/181656 RPT#: [id number] DC DATE: STATUS: ADM IN [facility] [address] [place] [address] END OF REPORT
[2018-12-30 17:23] VITALS: BP 122/60
[2018-12-30 21:10] VITALS: BP 124/56
[2018-12-31] VITALS (18 sets, daily range): BP systolic 120–170; BP diastolic 58–92
[2018-12-31 06:18] LABS: ANION GAP 17.6 mmol/L (8-16); CALCIUM 9.2 mg/dL (8.5-10.1); POTASSIUM - SERUM 5.1 mmol/L (3.5-5.1)
[2018-12-31 06:22] LABS: CREATININE - SERUM 4.1 mg/dL (0.6-1.3)
[2018-12-31 06:23] LABS: CARBON DIOXIDE 19.5 mmol/L (21.0-32.0)
[2018-12-31 07:14] LABS: BASOPHILS 0.1 % (0-2); EOSINOPHILS 0.5 % (0-7); HEMOGLOBIN 8.3 g/dL (12-16); IMMATURE GRANULOCYTES 0.6 % (0-5); LYMPHOCYTES 14.5 % (15-50); MCH 26.9 pg (26.0-34.0); MCHC 33.2 g/dL (31.0-37.0); MCV 80.9 fL (80.0-100.0); MEAN PLATELET VOLUME 10.9 fL (7.4-10.4); MONOCYTES 9.9 % (2-11); NEUTROPHILS 74.4 % (40-80); PLATELET COUNT 159 10x3/uL (130-400); RBC 3.09 10x6/uL (4.00-5.40); RDW 18.6 % (11.5-14.5)
[2018-12-31 07:22] LABS: WBC 9.8 10x3/uL (4.8-10.8)
[2018-12-31 12:16] LABS: UDS - AMPHET NEGATIVE QUAL (NEGATIVE); UDS - BARB NEGATIVE QUAL (NEGATIVE); UDS - BENZO POSITIVE QUAL (NEGATIVE); UDS - COCAINE NEGATIVE QUAL (NEGATIVE); UDS - OPIATE POSITIVE QUAL (NEGATIVE); UDS - PCP NEGATIVE QUAL (NEGATIVE); UDS - THC NEGATIVE QUAL (NEGATIVE)
--- NOTE | 2018-12-31 12:32 | MORECARE ---
CASE MANAGEMENT DISCHARGE SUMMARY PATIENT: MARBIN WILKINS UNIT: [id number] ADM DATE: 12/28/18 AGE: 68 : 49 SEX: F ROOM/BED: D.2303 AUTHOR: DA PIERRE PHYSICIAN: REFERRING PHYSICIAN: ASHLEE SPARKS DO DATE OF SERVICE: 12/31/18 Discharge Plan Patient Name: MARBIN WILKINS Facility: [facility]:[place] : 1950 Planned Disposition: Anticipated Discharge Date: Discharge Date: Expected LOS: Initial Reviewer: [email or web address] Initial Review Date: 12/28/2018 Generated: 12/31/18 1:31 pm Comments DCP- Discharge Planning Updated by [email or web address]: Janki Lancaster on 12/31/18 11:[address] late entry: 12/31/18 @835 attempted to see patient this am for dc planning assessment, bipap was off Patient could not answer any questions, would not open eyes, pulse was good, she cried when touched. notified financial services associate and nurse there was still no family at bedside DCP- Discharge Planning Updated by [email or web address]: Janki Lancaster on 12/30/18 3:[address] attempted to see patient she was sleeping with a bipap on, there was not family at bedside will try again tomorrow Last DP export: 12/30/18 3:58 p Patient Name: MARBIN WILKINS Page 16429 at 1232 All edits/amendments must be made on the electronic document DICTATION DATE: 12/31/18 1231 OPTOMECHANICAL ENGINEER: FEDERICO 12/31/18 1231 RPT#: [id number] DC DATE: STATUS: ADM IN [facility] [address] [place] [address] END OF REPORT
--- NOTE | 2018-12-31 20:52 | MORECARE ---
CASE MANAGEMENT DISCHARGE SUMMARY PATIENT: MARBIN WILKINS UNIT: [id number] ADM DATE: 12/28/18 AGE: 68 : [birth year] SEX: F ROOM/BED: D.2303 AUTHOR: DA PIERRE PHYSICIAN: REFERRING PHYSICIAN: ASHLEE SPARKS DO DATE OF SERVICE: 12/31/18 Discharge Plan Patient Name: MARBIN WILKINS Facility: [facility]:[place] : 1950 Planned Disposition: Anticipated Discharge Date: Discharge Date: Expected LOS: Initial Reviewer: [email or web address] Initial Review Date: 12/28/2018 Generated: 12/31/18 9:52 pm DCP- Discharge Planning Updated by [email or web address]: Janki Lancaster on 12/31/18 11:[address] late entry: 12/31/18 @835 attempted to see patient this am for dc planning assessment, bipap was off Patient could not answer any questions, would not open eyes, pulse was good, she cried when touched. notified cash poster and nurse there was still no family at bedside DCP- Discharge Planning Updated by [email or web address]: Janki Lancaster on 12/30/18 3:[address] attempted to see patient she was sleeping with a bipap on, there was not family at bedside will try again tomorrow Last DP export: 12/31/18 11:32 a Patient Name: MARBIN WILKINS Page [id number] at 2051 All edits/amendments must be made on the electronic document DICTATION DATE: 12/31/182050 FLAMER AFTER LASTING: FEDERICO 12/31/182050 RPT#: [id number] DC DATE: STATUS: ADM IN [facility] [address] [place] [address] END OF REPORT
[2019-01-01] VITALS (27 sets, daily range): BP systolic 106–175; BP diastolic 69–100
[2019-01-01 03:55] LABS: BASOPHILS 0.1 % (0-2); EOSINOPHILS 0.9 % (0-7); HEMATOCRIT 26.9 % (36.0-48.0); IMMATURE GRANULOCYTES 0.4 % (0-5); LYMPHOCYTES 13.7 % (15-50); MCH 26.5 pg (26.0-34.0); MCHC 33.5 g/dL (31.0-37.0); MCV 79.4 fL (80.0-100.0); MEAN PLATELET VOLUME 10.1 fL (7.4-10.4); MONOCYTES 10.4 % (2-11); NEUTROPHILS 74.5 % (40-80); PLATELET COUNT 178 10x3/uL (130-400); RBC 3.39 10x6/uL (4.00-5.40); RDW 17.9 % (11.5-14.5)
[2019-01-01 04:07] LABS: ANION GAP 16.4 mmol/L (8-16); CALCIUM 9.7 mg/dL (8.5-10.1); CARBON DIOXIDE 21.1 mmol/L (21.0-32.0); CREATININE - SERUM 4.5 mg/dL (0.6-1.3); MAGNESIUM - SERUM 1.7 mg/dL (1.8-2.4); PHOSPHOROUS 3.8 mg/dL (2.5-4.9); POTASSIUM - SERUM 5.5 mmol/L (3.5-5.1)
--- NOTE | 2019-01-01 17:23 | MORECARE ---
CASE MANAGEMENT DISCHARGE SUMMARY PATIENT: MARBIN WILKINS UNIT: [id number] ADM DATE: 12/28/18 AGE: 68 : 49 SEX: F ROOM/BED: D.2303 AUTHOR: DA PIERRE PHYSICIAN: REFERRING PHYSICIAN: ASHLEE SPARKS DO DATE OF SERVICE: 01/01/19 Discharge Plan Patient Name: MARBIN WILKINS Facility: [facility]:[place] : 1950 Planned Disposition: Anticipated Discharge Date: Discharge Date: Expected LOS: Initial Reviewer: [id number] Initial Review Date: 12/28/2018 Generated: 01/01/19 6:22 pm Comments DCP- Discharge Planning Updated by [id number]: Wendie Xie on 01/01/19 4:[address] Patient Name: MARBIN WILKINS Admission Status: Elective Accout number: [id number] Admission Date: 12-28-2018 : 1950 Admission Diagnosis:UNILATERAL PRIMARY OSTEOARTHRITIS, LEFT KNEE Attending: ASHLEE SPARKS Current LOS: 4 Anticipated DC Date: Planned Disposition: Primary Insurance: MEDICARE A & B Discharge Planning Comments: CM SPOKE WITH PATIENT'S DAUGHTER VALE HAGEN ABOUT DC PLANNING. SHE STATES HER MOM LIVES WITH HER SON BUT WILL PROBALLY NEED REHAB OR SNF AT DISCHARGE. PREFERS INPATIENT REHAB. SHE WANTS TO THINK ABOUT WHAT SNF IF THAT IS NEEDED. STATES HER BROTHER WILL BE HERE TOMORROW. CM WILL TRY TO CATCH HIM THEN. CM TO FOLLOW AND ASSIST. Hydraulic Lift Operator: Wendie Xie DCP- Discharge Planning Updated by [id number]: Janki Lancaster on 12/31/18 11:[address] late entry: 12/31/18 @835 attempted to see patient this am for dc planning assessment, bipap was off Patient could not answer any questions, would not open eyes, pulse was good, she cried when touched. notified staff toxicologist and nurse there was still no family at bedside DCP- Discharge Planning Updated by [email or web address]: Janki Lancaster on 12/30/18 3:[address] attempted to see patient she was sleeping with a bipap on, there was not family at bedside will try again tomorrow Last DP export: 12/31/18 7:52 p Patient Name: MARBIN WILKINS Page [phone] at 1723 All edits/amendments must be made on the electronic document DICTATION DATE: 01/01/191721 LATHE TENDER: FEDERICO 01/01/191721 RPT#: [id number] DC DATE: STATUS: ADM IN [facility] [address] [place] [address] END OF REPORT
[2019-01-02] VITALS (12 sets, daily range): BP systolic 130–177; BP diastolic 65–103
[2019-01-02 03:35] LABS: BASOPHILS 0.1 % (0-2); EOSINOPHILS 1.7 % (0-7); HEMATOCRIT 26.2 % (36.0-48.0); HEMOGLOBIN 8.9 g/dL (12-16); IMMATURE GRANULOCYTES 0.7 % (0-5); LYMPHOCYTES 14.5 % (15-50); MCH 26.5 pg (26.0-34.0); MEAN PLATELET VOLUME 10.6 fL (7.4-10.4); MONOCYTES 13.5 % (2-11); NEUTROPHILS 69.5 % (40-80); PLATELET COUNT 197 10x3/uL (130-400); RBC 3.36 10x6/uL (4.00-5.40); RDW 17.9 % (11.5-14.5); WBC 8.8 10x3/uL (4.8-10.8)
[2019-01-02 03:51] LABS: ANION GAP 19.6 mmol/L (8-16); CALCIUM 10.5 mg/dL (8.5-10.1); CARBON DIOXIDE 20.8 mmol/L (21.0-32.0); CREATININE - SERUM 4.3 mg/dL (0.6-1.3); MAGNESIUM - SERUM 1.8 mg/dL (1.8-2.4); PHOSPHOROUS 3.8 mg/dL (2.5-4.9)
[2019-01-02 03:53] LABS: POTASSIUM - SERUM 4.4 mmol/L (3.5-5.1)
[2019-01-03 00:18] VITALS: BP 143/75
[2019-01-03 04:00] VITALS: BP 173/87
[2019-01-03 07:00] VITALS: BP 159/71
[2019-01-03 07:33] LABS: ANION GAP 16.3 mmol/L (8-16); CALCIUM 10.5 mg/dL (8.5-10.1); CARBON DIOXIDE 21.8 mmol/L (21.0-32.0); CREATININE - SERUM 3.6 mg/dL (0.6-1.3); POTASSIUM - SERUM 4.1 mmol/L (3.5-5.1)
[2019-01-03 07:53] LABS: BASOPHILS 0.2 % (0-2); EOSINOPHILS 3.1 % (0-7); HEMOGLOBIN 8.5 g/dL (12-16); IMMATURE GRANULOCYTES 1.3 % (0-5); LYMPHOCYTES 16.1 % (15-50); MCH 26.5 pg (26.0-34.0); MCV 77.9 fL (80.0-100.0); MEAN PLATELET VOLUME 10.4 fL (7.4-10.4); MONOCYTES 15.1 % (2-11); NEUTROPHILS 64.2 % (40-80); PLATELET COUNT 191 10x3/uL (130-400); RBC 3.21 10x6/uL (4.00-5.40); RDW 17.6 % (11.5-14.5)
[2019-01-03 17:00] VITALS: BP 145/76
[2019-01-03 19:40] VITALS: BP 142/81
[2019-01-04 00:37] VITALS: BP 127/87
[2019-01-04 07:45] LABS: BASOPHILS 0.1 % (0-2); EOSINOPHILS 2.4 % (0-7); HEMATOCRIT 24.4 % (36.0-48.0); HEMOGLOBIN 8.3 g/dL (12-16); IMMATURE GRANULOCYTES 1.6 % (0-5); LYMPHOCYTES 16.2 % (15-50); MCH 26.6 pg (26.0-34.0); MCV 78.2 fL (80.0-100.0); MONOCYTES 13.8 % (2-11); NEUTROPHILS 65.9 % (40-80); PLATELET COUNT 185 10x3/uL (130-400); RBC 3.12 10x6/uL (4.00-5.40); RDW 17.6 % (11.5-14.5); WBC 8.9 10x3/uL (4.8-10.8)
[2019-01-04 07:46] LABS: ANION GAP 16.2 mmol/L (8-16); CALCIUM 10.3 mg/dL (8.5-10.1); CREATININE - SERUM 3.1 mg/dL (0.6-1.3); POTASSIUM - SERUM 4.2 mmol/L (3.5-5.1)
[2019-01-04 08:00] VITALS: BP 124/68
[2019-01-04 11:57] VITALS: BP 151/83
[2019-01-04 15:29] VITALS: BP 128/90
[2019-01-04 20:00] VITALS: BP 152/74
[2019-01-04 23:52] VITALS: BP 171/86
[2019-01-05 04:00] VITALS: BP 142/75
[2019-01-05 05:38] LABS: BASOPHILS 0.2 % (0-2); EOSINOPHILS 2.2 % (0-7); HEMATOCRIT 24.1 % (36.0-48.0); HEMOGLOBIN 8.2 g/dL (12-16); IMMATURE GRANULOCYTES 1.6 % (0-5); LYMPHOCYTES 20.9 % (15-50); MCH 26.5 pg (26.0-34.0); MEAN PLATELET VOLUME 9.8 fL (7.4-10.4); MONOCYTES 13.5 % (2-11); NEUTROPHILS 61.6 % (40-80); PLATELET COUNT 204 10x3/uL (130-400); RBC 3.09 10x6/uL (4.00-5.40); RDW 17.8 % (11.5-14.5); WBC 8.3 10x3/uL (4.8-10.8)
[2019-01-05 06:20] LABS: ALBUMIN 2.3 g/dL (3.4-5.0); ANION GAP 14.4 mmol/L (8-16); BILIRUBIN - TOTAL 0.57 mg/dL (0.2-1.3); CALCIUM 10.8 mg/dL (8.5-10.1); CARBON DIOXIDE 23.5 mmol/L (21.0-32.0); CREATININE - SERUM 2.8 mg/dL (0.6-1.3); POTASSIUM - SERUM 3.9 mmol/L (3.5-5.1); PROTEIN - SERUM 6.2 g/dL (6.4-8.2)
[2019-01-05 08:14] VITALS: BP 144/66
[2019-01-05] MEDS ORDERED: HYDROCODON-ACE1 EA10 PO (14:14)
[2019-01-06 10:49] VITALS: Ht 147.3 cm; Wt 101.7 kg
--- NOTE | 2019-01-06 17:01 | MORECARE ---
CASE MANAGEMENT DISCHARGE SUMMARY PATIENT: MARBIN WILKINS UNIT: [id number] ADM DATE: 12/28/18 AGE: 68 : 49 SEX: F ROOM/BED: D.1212 AUTHOR: DA PIERRE PHYSICIAN: REFERRING PHYSICIAN: ASHLEE SPARKS DO DATE OF SERVICE: 01/06/19 Discharge Plan Patient Name: MARBIN WILKINS Facility: [facility]:[place] : 1950 Planned Disposition: Anticipated Discharge Date: Discharge Date: 01/05/2019 Expected LOS: Initial Reviewer: [id number] Initial Review Date: 12/28/2018 Generated: 01/06/19 6:00 pm DCP- Discharge Planning Updated by [email or web address]: Wendie Xie on 01/01/19 4:[address] Patient Name: MARBIN WILKINS Admission Status: Elective Accout number: [id number] Admission Date: 12-28-2018 : 1950 Admission Diagnosis:UNILATERAL PRIMARY OSTEOARTHRITIS, LEFT KNEE Attending: ASHLEE SPARKS Current LOS: 4 Anticipated DC Date: Planned Disposition: Primary Insurance: MEDICARE A & B Discharge Planning Comments: CM SPOKE WITH PATIENT'S DAUGHTER VALE HAGEN ABOUT DC PLANNING. SHE STATES HER MOM LIVES WITH HER SON BUT WILL PROBALLY NEED REHAB OR SNF AT DISCHARGE. PREFERS INPATIENT REHAB. SHE WANTS TO THINK ABOUT WHAT SNF IF THAT IS NEEDED. STATES HER BROTHER WILL BE HERE TOMORROW. CM WILL TRY TO CATCH HIM THEN. CM TO FOLLOW AND ASSIST. Vat Operator: Wendie Xie DCP- Discharge Planning Updated by [id number]: Janki Lancaster on 12/31/18 11:[address] late entry: 12/31/18 @835 attempted to see patient this am for dc planning assessment, bipap was off Patient could not answer any questions, would not open eyes, pulse was good, she cried when touched. notified claim clinician and nurse there was still no family at bedside DCP- Discharge Planning Updated by [id number]: Janki Lancaster on 12/30/18 3:[address] attempted to see patient she was sleeping with a bipap on, there was not family at bedside will try again tomorrow Coverage Notice Reviewer: [id number] Amena Romeo Notice Issued Date-Time: 01/05/2019 12:49 Notice Type: IM Discharge Notice Notice Delivered To: Patient Relationship to Patient: Self Manager Investigations Name: Delivery Method: HAND - Hand Delivered Ping Days: Prior Verbal Notification: Recipient Understood Notice: Yes Recipient Signature: Yes Med Rec Note Co-signed by Attending: Coverage Notice Comment: Last DP export: 01/01/19 4:23 p Patient Name: MARBIN WILKINS Page [phone] at 1701 All edits/amendments must be made on the electronic document DICTATION DATE: 01/06/191699 ASSOCIATE BUYER: FEDERICO 01/06/191699 RPT#: [id number] DC DATE:01/05/19 STATUS: DIS IN [facility] [address] [place] [address] END OF REPORT
== END 2019-01-05 18:12 | DRG 469 ==
LOC: D.SDCHOLD 12-28 10:00 → D.ICU 12-28 10:18 → D.SDCHOLD 12-28 10:18 → D.MS 12-28 10:18 → D.SDCHOLD 12-28 11:00 → D.MS 12-28 17:37 → D.SDCHOLD 12-28 17:37 → D.MS 12-29 15:45 → D.ICU 12-31 10:49 → D.M3 01-02 15:35 → D.REHAB 01-05 18:12
PROVIDERS: Family Medicine Adult Medicine; Internal Medicine Nephrology; Internal Medicine Pulmonary Disease; ADMIT Orthopaedic Surgery; ATTEND Orthopaedic Surgery
PROC: 0SRD0J9 Replacement of Left Knee Joint with Synthetic Substitute, Cemented, Open Approach (ICD-10-PCS; principal; 2018-12-28 11:00)
DX: M17.12 Unilateral primary osteoarthritis, left knee (principal); G93.41 Metabolic encephalopathy; N17.0 Acute kidney failure with tubular necrosis; N17.9 Acute kidney failure, unspecified; E87.2 Acidosis; D64.9 Anemia, unspecified; I25.10 Atherosclerotic heart disease of native coronary artery without angina pectoris; G47.33 Obstructive sleep apnea (adult) (pediatric); K21.9 Gastro-esophageal reflux disease without esophagitis; E11.40 Type 2 diabetes mellitus with diabetic neuropathy, unspecified; I50.9 Heart failure, unspecified; I11.0 Hypertensive heart disease with heart failure; E83.42 Hypomagnesemia; E87.5 Hyperkalemia; F41.8 Other specified anxiety disorders

== ENCOUNTER 2018-12-22 13:25 | Emergency (ER) | payer MEDICARE ==
[~2018-12-22] VITALS: Ht 144.8 cm; Wt 85.0 kg
[2018-12-22 13:29] VITALS: Ht 144.8 cm; Wt 85.0 kg
[2018-12-22 16:14] VITALS: BP 150/81
== END 2018-12-22 16:12 | disposition home or self-care (01) ==
LOC: D.ER 13:25
DX: M79.662 Pain in left lower leg (principal)

== ENCOUNTER 2019-01-05 15:17 | Inpatient (IN) | payer MEDICARE ==
[~2019-01-05] VITALS: Ht 147.3 cm; Wt 99.8 kg
[~2019-01-05 15:17] MED LIST changes: +COLACE100 MG PO; +GINKGO BILOBA120 MG; +HYDROCODON-ACE1 EA10 PO
--- NOTE | 2019-01-05 18:00 | NUR ---
RECIEVED TO ROOM 1112B/;ORIENTED TO ROOM AND SURROUNDINGS.CL IN REACH.ACCOMPANIED BY SON AND STAFF.
--- NOTE | 2019-01-05 19:00 | NUR ---
INTRODUCED SELF TO PATIENT AND PATIENT'S FAMILY. ORIENTED TO ROOM AND BATHROOM FUNCTIONS OF REMOTE. NO CONCERNS VOICED AT THIS TIME.
[2019-01-05 23:45] VITALS: BP 138/72; BMI 46.0
--- NOTE | 2019-01-06 00:40 | NUR ---
QUIET HOURS. LYING IN BED EYES CLOSED HOME CPAP IN USE. NO SIGNS OF DISTRESS NOTED. WILL CONTINUE TO MONITOR
--- NOTE | 2019-01-06 04:15 | NUR ---
LYING IN BED ON LEFT SIDE EYES CLOSED RESTING QUIETLY. CONTINUES ON 2L VIA NC. NO SIGNS OF DISTRESS NOTED. WILL CONTINUE TO MONITOR
--- NOTE | 2019-01-06 06:20 | NUR ---
SITTING UP IN W/C PERFORMING ORAL HYGIENE. NO SIGNS OF DISTRESS NOTED.
[2019-01-06 07:10] LABS: BASOPHILS 0.4 % (0-2); EOSINOPHILS 1.8 % (0-7); HEMOGLOBIN 9.1 g/dL (12-16); IMMATURE GRANULOCYTES 1.7 % (0-5); LYMPHOCYTES 22.9 % (15-50); MCH 26.7 pg (26.0-34.0); MCHC 33.7 g/dL (31.0-37.0); MCV 79.2 fL (80.0-100.0); MEAN PLATELET VOLUME 10.1 fL (7.4-10.4); MONOCYTES 12.7 % (2-11); NEUTROPHILS 60.5 % (40-80); RBC 3.41 10x6/uL (4.00-5.40); RDW 18.1 % (11.5-14.5)
[2019-01-06 07:20] LABS: PLATELET COUNT 266 10x3/uL (130-400)
[2019-01-06 07:25] LABS: ANION GAP 15.6 mmol/L (8-16); CARBON DIOXIDE 22.8 mmol/L (21.0-32.0); CREATININE - SERUM 2.6 mg/dL (0.6-1.3); POTASSIUM - SERUM 4.4 mmol/L (3.5-5.1)
--- NOTE | 2019-01-06 08:42 | NUR ---
PT UP IN WHEELCHAIR CALL LIGHT IN REACH WILL MONITER
[2019-01-06 08:54] VITALS: BP 150/79
[2019-01-06 10:49] VITALS: Ht 147.3 cm; Wt 99.8 kg
--- NOTE | 2019-01-06 11:20 | NUR ---
PATIENT ADMITTED TO REHAB FROM ACUTE FLOOR. DISCHARGE PLANS ARE FOR PATIENT TO RETURN HOME WITH HER FAMILY. WILL CONTINUE TO FOLLOW WITH PATIENT AND WILL ASSIT WITH NEEDS.
--- NOTE | 2019-01-06 18:16 | NUR ---
PT RESTING IN CHAIR EATING SUPPER CALL LIGHT IN REACH WILL MONITER
--- NOTE | 2019-01-06 19:20 | NUR ---
BEDSIDE REPORT COMPLETE. SITTING UP IN W/C VISITING WITH SON. DENIES ANY NEEDS. C/O MILD DISCOMFORT RECEIVED PAIN MEDICATION 1839. NO SIGNS OF DISTRESS NOTED. WILL CONTINUE TO MONITOR
[2019-01-06 20:01] VITALS: BP 112/72
--- NOTE | 2019-01-07 00:05 | NUR ---
LYING IN BED SUPINE EYES CLOSED RESTING QUIETLY. CPAP IN USE. NO SIGNS OF DISTRESS NOTED. WILL CONTINUE TO MONITOR
--- NOTE | 2019-01-07 02:40 | NUR ---
PT LYING IN BED LEFT SIDE EYES CLOSED RESTING QUIETLY.
--- NOTE | 2019-01-07 06:43 | NUR ---
SITTING UP IN W/C PERFORMING PERSONAL HYGIENE CARE AT SINK. DENIES ANY NEEDS OR PAIN.
[2019-01-07 07:14] LABS: HEMATOCRIT 28.4 % (36.0-48.0); HEMOGLOBIN 9.3 g/dL (12-16); MCH 26.6 pg (26.0-34.0); MCHC 32.7 g/dL (31.0-37.0); PLATELET COUNT 272 10x3/uL (130-400); RBC 3.49 10x6/uL (4.00-5.40); RDW 18.6 % (11.5-14.5); WBC 9.5 10x3/uL (4.8-10.8)
[2019-01-07 07:15] LABS: MCV 81.4 fL (80.0-100.0)
[2019-01-07 07:16] LABS: CALCIUM 11.2 mg/dL (8.5-10.1); CREATININE - SERUM 2.7 mg/dL (0.6-1.3)
[2019-01-07 08:00] VITALS: BP 92/57
[2019-01-07 08:10] LABS: EOSINOPHILS 3 % (0-7); LYMPHOCYTES 32 % (15-50); MONOCYTES 5 % (2-11); NEUTROPHILS 59 % (40-80); PLATELET ESTIMATE NORMAL
--- NOTE | 2019-01-07 12:18 | NUR ---
PATIENT PCP IS DR. TURNER WITH DR. SPARKS FOLLOWING WITH PATIENT.
--- NOTE | 2019-01-07 17:34 | NUR ---
PT RESTING IN BED WITH EYES OPEN CALL LIGHT IN REACH WILL MONITER
[2019-01-07 19:05] VITALS: BP 121/60
--- NOTE | 2019-01-07 19:05 | NUR ---
GREETED PATIENT AND INTRODUCED MYSELF. PATIENT IS LAYING IN BED AND IS VERY DROWSY. PT. WILL AWAKEN WHEN TALKED TO. DENIES ANY PAIN AT THIS TIME. CALL LIGHT IN REACH. VITALS OBTAINED.
--- NOTE | 2019-01-08 03:00 | NUR ---
PATIENT AWAKE AND ASSISTED TO BATHROOM USING WHEELCHAIR. PATIENT BACK TO BED AND REPOSITIONED FOR COMFORT. CALL LIGHT IN REACH.
--- NOTE | 2019-01-08 07:56 | NUR ---
PT MORE ALERT THIS AM. PT SITTING UP IN BED AT THIS TIME EATING BREAKFAST, DENIES NEEDS. WCTM.
[2019-01-08 18:22] VITALS: BP 141/77
[2019-01-08 18:50] VITALS: BP 128/79
--- NOTE | 2019-01-08 18:50 | NUR ---
GREETED PATIENT AND INTRODUCED MYSELF. PATIENT IS SITTING IN THE WHEELCHAIR AxO. ASSISTED PATIENT BACK TO BED AND POSITIONED FOR COMFORT. O2 AT 2L IN USE VIA NC. RESPIRATIONS EVEN. NO S/S OF DISTRESS. CALL LIGHT IN REACH.
--- NOTE | 2019-01-08 22:49 | NUR ---
ASSISTED PATIENT TO BATHROOM USING WHEELCHAIR. PT. BACK TO BED AND REPOSITIONED FOR COMFORT. CALL LIGHT IN REACH.
--- NOTE | 2019-01-09 01:34 | NUR ---
PATIENT RESTING QUIETLY WATCHING TV. DENIES ANY NEEDS AT THIS TIME. CALL LIGHT IN REACH.
[2019-01-09 07:11] LABS: ALBUMIN 2.6 g/dL (3.4-5.0); ANION GAP 16.1 mmol/L (8-16); BILIRUBIN - TOTAL 0.4 mg/dL (0.2-1.3); CALCIUM 10.4 mg/dL (8.5-10.1); CREATININE - SERUM 2.5 mg/dL (0.6-1.3); POTASSIUM - SERUM 4.1 mmol/L (3.5-5.1); PROTEIN - SERUM 5.7 g/dL (6.4-8.2)
--- NOTE | 2019-01-09 08:52 | NUR ---
PT SITTING UP IN WHEELCHAIR EATING BREAKFAST, AM MEDS ADMINISTERED. PT DENIES NEEDS. WCTM.
[2019-01-09 08:53] VITALS: BP 135/76
--- NOTE | 2019-01-09 18:33 | NUR ---
PT RESTING IN BED, YADIRA NEEDS. WCTM.
[2019-01-09 20:00] VITALS: BP 132/72
--- NOTE | 2019-01-09 20:08 | NUR ---
PATIENT RECEIVED SITTING UP IN BED WATCHING TV. VITAL SIGNS & ASSESSMENT DONE. NO C/O PAIN OR DISTRESS. BED LOW. CALL LIGHT WITHIN REACH. WILL [id number] TO MONITOR.
--- NOTE | 2019-01-10 02:33 | NUR ---
PATIENT EYES CLOSED. RESPIRATIONS 20 & EVEN. BED LOW. ALARM ON. CALL LIGHT WITHIN REACH. WILL CONTINUE TO MONITOR.
--- NOTE | 2019-01-10 03:14 | NUR ---
I have reviewed this patient and I concur with the Shift Assessment completed by the Licensed Practical Nurse today this shift.
[2019-01-10 06:42] LABS: BASOPHILS 0.5 % (0-2); EOSINOPHILS 3.8 % (0-7); HEMATOCRIT 23.4 % (36.0-48.0); HEMOGLOBIN 7.7 g/dL (12-16); IMMATURE GRANULOCYTES 0.5 % (0-5); LYMPHOCYTES 30.5 % (15-50); MCH 26.3 pg (26.0-34.0); MCHC 32.9 g/dL (31.0-37.0); MCV 79.9 fL (80.0-100.0); MEAN PLATELET VOLUME 10.4 fL (7.4-10.4); MONOCYTES 11.4 % (2-11); NEUTROPHILS 53.3 % (40-80); RBC 2.93 10x6/uL (4.00-5.40); RDW 18.3 % (11.5-14.5); WBC 5.9 10x3/uL (4.8-10.8)
[2019-01-10 06:49] LABS: PLATELET COUNT 352 10x3/uL (130-400)
[2019-01-10 07:04] LABS: ANION GAP 15.5 mmol/L (8-16); CALCIUM 9.9 mg/dL (8.5-10.1); CARBON DIOXIDE 22.6 mmol/L (21.0-32.0); CREATININE - SERUM 1.9 mg/dL (0.6-1.3); POTASSIUM - SERUM 4.1 mmol/L (3.5-5.1)
[2019-01-10 07:47] VITALS: BP 159/84
--- NOTE | 2019-01-10 11:12 | NUR ---
Nutrition Follow-up: Diet: Diabetic soft, thin liquids PO intake: 75-100% Labs reviewed. Elevated Glu. Significant meds: lasix +BM Wt: 220# (01/06/19)- stable RD Following
--- NOTE | 2019-01-10 11:56 | NUR ---
UNABLE TO START IV FOR BLOOD TRANSFUSION, NOTIFIED TAMMI WITH VASCULAR ACCESS TO SEE PAINENT
[2019-01-10 19:00] VITALS: BP 148/62
--- NOTE | 2019-01-10 19:15 | NUR ---
BEDSIDE REPORT COMPLETE. PT SITTING UP IN BED WATCHING TV. DENIES ANY NEEDS OR PAIN. NO SIGNS OF DISTRESS NOTED. LEFT KNEE ZIPTIED SPECIAL LIBRARY LIBRARIAN. VS STABLE. CALL LIGHT AND WATER WITHIN REACH, FALL PRECAUTIONS IN PLACE. WILL CONTINUE TO MONITOR
--- NOTE | 2019-01-10 23:54 | NUR ---
QUIET HOURS. PT LYING IN BED EYES CLOSED RESTING QUIETLY. CPAP IN USE.
--- NOTE | 2019-01-11 02:35 | NUR ---
PT LYING IN BED EYES CLOSED RESTING QUIETLY.
--- NOTE | 2019-01-11 04:53 | NUR ---
FLUSHED 10ML LEFT FOREARM IV WITHOUT DIFFICULTY.
--- NOTE | 2019-01-11 05:37 | NUR ---
LYING IN BED EYES CLOSED RESTING QUIETLY.
--- NOTE | 2019-01-11 07:50 | NUR ---
AWAKE AND ALERT. BREAKFAST SERVED. NO DISTRESS NOTED. CL IN REACH. SITTING IN WC.
[2019-01-11 07:51] VITALS: BP 122/77
--- NOTE | 2019-01-11 12:55 | NUR ---
NO CHANGE IN ASSESSMENT. EATING LUNCH.
--- NOTE | 2019-01-11 16:49 | NUR ---
RESTING WO DISTRESS. CL IN REACH. RESP EVEN AND UNLABORED. PAIN MED GIVEN.
--- NOTE | 2019-01-11 19:00 | NUR ---
BEDSIDE REPORT COMPLETE. PT SITTING UP IN W/C ALERT AND ORIENTED X4 WATCHING TV. DENIES ANY NEEDS. C/O MILD DISCOMFORT LEFT KNEE TOLERABLE. RR EVEN AND UNLABORED. O2 IS NOT ON AT THIS TIME O2SAT 95% ON ROOM AIR. CALL LIGHT WITHIN REACH, FALL PRECAUTIONS IN PLACE. WILL CONTINUE TO MONITOR
[2019-01-11 20:54] VITALS: BP 158/86
--- NOTE | 2019-01-11 23:50 | NUR ---
QUIET HOURS. PT LYING IN BED HOB 20 DEGREES EYES CLOSED RESTING QUIETLY. CPAP IN USE.
--- NOTE | 2019-01-12 04:10 | NUR ---
LYING IN BED EYES CLOSED RESTING QUIETLY. CPAP IN USE
[2019-01-12 07:06] LABS: BASOPHILS 0.6 % (0-2); EOSINOPHILS 3.6 % (0-7); HEMATOCRIT 25.2 % (36.0-48.0); HEMOGLOBIN 8.4 g/dL (12-16); LYMPHOCYTES 37.9 % (15-50); MCH 26.9 pg (26.0-34.0); MCHC 33.3 g/dL (31.0-37.0); MCV 80.8 fL (80.0-100.0); MEAN PLATELET VOLUME 10.1 fL (7.4-10.4); MONOCYTES 10.2 % (2-11); NEUTROPHILS 47.7 % (40-80); PLATELET COUNT 323 10x3/uL (130-400); RBC 3.12 10x6/uL (4.00-5.40); RDW 18.2 % (11.5-14.5); WBC 5.3 10x3/uL (4.8-10.8)
[2019-01-12 07:23] LABS: ANION GAP 13.2 mmol/L (8-16); CARBON DIOXIDE 24.1 mmol/L (21.0-32.0); CREATININE - SERUM 1.5 mg/dL (0.6-1.3); POTASSIUM - SERUM 4.3 mmol/L (3.5-5.1)
[2019-01-12 08:01] VITALS: BP 163/88
--- NOTE | 2019-01-12 14:39 | RHP ---
PATIENT: MARBIN WILKINS MEDICAL RECORD: [id number] ACCOUNT: [id number] LOCATION:[facility] : [birth year] ADMISSION DATE: 01/05/19 REHABILITATION HISTORY AND PHYSICAL EXAMINATION POST ADMISSION PHYSICIAN EXAMINATION DATE OF ADMISSION: 01/05/2019 ADMITTING DIAGNOSES: Nontraumatic brain injury. HISTORY OF PRESENT ILLNESS: The patient is admitted for metabolic encephalopathy. She is a 68-year-old female patient who was admitted to the hospital post-elective left total knee on 12/28/2018. She has got a history of neuropathy, diabetes, CHF, coronary artery disease with stent placement, CPAP, former tobacco user, and acute kidney injury. She had some postop complications including acute respiratory distress with decreased level of consciousness. She was transferred to the ICU on 12/31/2018. She has got a past medical history of problems with anesthesia post-surgery. She has had a slow progress with mental clearing in therapy. She is on supplemental O2, acute pain. She has got acute mental status that is slowly clearing. She has got acute postop blood loss anemia. She is having some problems with her kidneys following surgery. She has got a Eid catheter. She has debility, deconditioning, impaired mobility, gait disturbance. She is a high risk for falls and self-care deficits. These are all barriers to her discharge home. She lives at home with her son, was moderately independent with use of a rolling walker and single point cane for mobility and ADLs, currently set up for max assist for ADLs and mod assist to total assist for mobility. She and her family would like for her to return home as close to her prior level of functioning as possible. COMORBIDITIES: Include oropharyngeal dysphagia, left knee osteoarthritis status post total knee, anemia with severe iron deficiency, diabetes, coronary artery disease, CHF, hypertension, obstructive sleep apnea, gastroesophageal reflux disease, metabolic encephalopathy, hyperlipidemia, acute kidney injury probably from acute tubular necrosis from transient loss of blood pressure. She has hyperkalemia, acute mental status changes, metabolic encephalopathy, depression, anxiety, normocytic anemia, and low magnesium. PAST MEDICAL HISTORY: Significant for neuropathy, cataracts, diabetes, CHF, coronary artery disease, asthma, obstructive sleep apnea, uterine cancer, acid reflux, ulcers, joint problems, depression, anxiety, and MRSA. PAST SURGICAL HISTORY: Includes gallbladder surgery, , appendectomy, hysterectomy, hernia repair, colon surgery. She has had a right shoulder surgery, right total knee. She has had her spleen removed. She has had angioplasty with stents. ALLERGIES: IODINATED CONTRAST, BETADINE, IODINE, PENICILLIN, STRAWBERRIES, TETRACYCLINE, ACETAMINOPHEN, PERCOCET, ASPIRIN, VALIUM, OXYCODONE, TALWIN, DARVON, PROPOXYPHENE, AND BETADINE SOAPS. CURRENT MEDICATIONS: Include furosemide she is on 20 mg on Thursday, Thursday and Thursday. She is on spironolactone 25 mg with dinner. She is on Xarelto 10 mg daily with dinner. She is on Myrbetriq 25 mg daily. She is on Flonase nasal spray 1 spray daily, ferrous sulfate 325 daily, metformin 850 with meals. She is on Dinora 60 mg b.i.d. She is on an intermittent resistant sliding scale HISTORY AND PHYSICAL [id number] MARBIN WILKINS with Humulin, Pepcid 20 mg b.i.d., Lyrica 75 mg t.i.d., potassium 20 mEq q.h.s., Protonix 40 mg q.h.s., Singulair 10 mg q.h.s., Colace 100 mg q.h.s., Plavix 75 mg q.h.s. She is on baclofen 10 mg t.i.d., vitamin C 1000 units b.i.d., polyethylene glycol 17 grams in 8 ounces of water daily, and [place] 10/325 one tab q.6 hours p.r.n. HABITS: She does have a history of tobacco use in the distant past. FAMILY HISTORY: Noncontributory. SOCIAL HISTORY: The patient hopes to return back home and get back to her prior level of functioning. REVIEW OF SYSTEMS: GENERAL: Does complain of weakness and fatigue. HEENT: She denies cold, cough, or congestion. CARDIOVASCULAR: She denies any chest pain. PHYSICAL EXAMINATION: VITAL SIGNS: Stable, afebrile. GENERAL: An obese female in no acute distress, alert upon exam. HEENT: Normocephalic and atraumatic. Mucosa moist. NECK: Supple. No lymphadenopathy. LUNGS: Clear in upper poole, decreased breath sounds in the bases secondary to body habitus. CARDIOVASCULAR: Regular rate and rhythm. She does have a subtle murmur. ABDOMEN: Soft, benign, and nondistended. Positive bowel sounds times 4. EXTREMITIES: No clubbing, cyanosis or edema. Postop area looks pretty good. She has normal postop swelling. NEUROLOGIC: She does have noted changes significant for neuropathy and decreased sensation in her lower extremities. LABORATORY DATA: Her white count is 9000, H&H of 9 and 27, and platelet count is noted to be 266. Her MCV is 79. Sodium 139, potassium 4.5, BUN and creatinine of 46 and 2.6 and blood sugar is noted to be 117. ASSESSMENT: This is a 68-year-old female patient admitted to the rehab with a working diagnosis of metabolic encephalopathy. The patient has potential to make improvement. We instituted the following multiple disciplinary therapies including, but not limited to physical, occupational, respiratory, speech, nutritional services, prosthetics and orthotics. Given her complex medical condition and risks for more complications, rehabilitation services cannot be provided at a low level of care such as skilled nurse facility. PLAN: 1. Admit to [facility] rehab for an intensive inpatient therapy to include the following disciplines: A. Physical therapy to improve gait, all transfer skills and bed mobility to a modified independent level. B. Occupational therapy to improve activities of daily living to a modified independent level. C. Case management to assist with discharge planning and placement options. D. Nutrition to assist with nutritional needs. E. Rehabilitation nursing to assist in monitoring the patient's underlying medical conditions and to assist with any type of bowel or bladder management. HISTORY AND PHYSICAL [id number] MARBIN WILKINS 2. The patient's current medication and medical care will be continued. 3. We will watch her BUN and creatinine closely, make sure that we do not do anything else to damage her chronic kidney problems. 4. We will watch her H&H and look for any signs of blood loss anemia. 5. We will work with speech therapy and I will see again in the a.m. TRANSINT:[id number] Voice Confirmation ID: [id number] DOCUMENT ID: [id number] KENNA notes whether there has been none or any medical/functional change since admission: - No change since prescreen. KENNA attests patient continues to be appropriate for IRF: - Continues to be appropriate. CLAUDIA RECINOS MD at 1439 CC: [id number] DICTATION DATE: 01/06/19 0837 FOOD PREPARATION KITCHEN AIDE: 01/06/19 1109 ADM IN [facility] [address] [place] [address]
--- NOTE | 2019-01-12 15:38 | NUR ---
NO CHANGE IN ASSESSMENT. RESP EVEN AND UNLABORED. PAIN MED GIVEN. RESTING IN BED. CL IN REACH.
[2019-01-12 19:15] VITALS: BP 146/75
--- NOTE | 2019-01-12 19:25 | NUR ---
PT SITTING UP IN WHEELCHAIR. CL IN REACH. A/O X4. DENIES NEEDS AT THIS TIME. RESP EVEN AND UNLABORED. WILL CONTINUE TO MONITOR.
--- NOTE | 2019-01-12 22:26 | NUR ---
PT COMPLAINING OF PAIN IN KNEE AND IT BEING SWOLLEN. PAIN MED GIVEN. DENIES FURTHER NEEDS. SHOWER GIVEN. PT IN BED. CL IN REACH. BED IN LOW SIDE RAILS X2. LUNGS CLEAR. BOWEL ACTIVE X4. WILL CONTINUE TO MONITOR.
--- NOTE | 2019-01-13 02:00 | NUR ---
PT COMPLAINING OF LEFT LEG PAIN, PAIN PILL GIVEN. DENIES FURTHER NEEDS. BIPAP ON. CL IN REACH. WCTM
--- NOTE | 2019-01-13 05:07 | NUR ---
PT COMPLAINING OF PAIN IN LEFT LEG. PAIN PILL GIVEN. DENIES FURTHER NEEDS. BIPAP ON. WCTM
--- NOTE | 2019-01-13 05:57 | NUR ---
FSBS 101
[2019-01-13 07:56] LABS: BASOPHILS 0.6 % (0-2); EOSINOPHILS 4.4 % (0-7); HEMATOCRIT 27.7 % (36.0-48.0); HEMOGLOBIN 9.1 g/dL (12-16); IMMATURE GRANULOCYTES 0.2 % (0-5); LYMPHOCYTES 33.9 % (15-50); MCH 26.5 pg (26.0-34.0); MCHC 32.9 g/dL (31.0-37.0); MCV 80.8 fL (80.0-100.0); MEAN PLATELET VOLUME 9.5 fL (7.4-10.4); MONOCYTES 10.3 % (2-11); NEUTROPHILS 50.6 % (40-80); PLATELET COUNT 321 10x3/uL (130-400); RBC 3.43 10x6/uL (4.00-5.40); WBC 5.4 10x3/uL (4.8-10.8)
[2019-01-13 08:00] VITALS: BP 148/68
--- NOTE | 2019-01-13 19:35 | NUR ---
AWAKE AND ALERT. SITTING IN WHEELCHAIR IN ROOM. RESPIRATIONS UNLABORED. NO ACUTE DISTRESS NOTED. CALL LIGHT IN REACH.
[2019-01-13 20:00] VITALS: BP 101/63
--- NOTE | 2019-01-14 01:36 | NUR ---
RESTING IN BED WITH RESPIRATIONS UNLABORED. CPAP ON. NO DISTRESS NOTED. CALL LIGHT IN REACH.
--- NOTE | 2019-01-14 05:24 | NUR ---
MEDICATED FOR PAIN RECENTLY. SEE MAR. RESTING NOW WITH NO DISTRESS NOTED.
[2019-01-14 08:00] VITALS: BP 169/80
--- NOTE | 2019-01-14 10:44 | NUR ---
THE PATIENT WAS SITTING IN BED AND WATCHING TELEVISION WHEN STAFF ENTERED HER ROOM. BED IS IN THE LOW POSITION WITH SIDERAILS X2 AND CALL LIGHT WITHIN REACH. THE PATIENT WAS EDUCATED ON THE USE OF A CALL LIGHT AND DEMONSTRATES UNDERSTANDING VIA TEACHBACK METHOD. THE PATIENT APPEARS COMFORTABLE WITH NO QUESTIONS OR COCNERNS AT THIS TIME.
--- NOTE | 2019-01-14 11:30 | NUR ---
LEFT LOWER SANDERS HAS AN OPEN WOUND MEASURING 1.5CM X 1CM X 0.2CM. THERE IS A SMALL AMOUNT OF SEROUS DRAINAGE AND NO ODOR. PT STATES IT IS TENDER FROM THE WOUND AROUND TO THE BACK OF HER LEG. THERE IS NO EDEMA OR FURTHER BREAKDOWN AROUND THE LEG. RECOMMEND DRESSING WOUND WITH PUROCOL AND COVERING TO PROTECT. WOUND CARE WILL CONTINUE MONITORING.
--- NOTE | 2019-01-14 13:37 | NUR ---
Nutrition Follow Up: Diet: ADA Mechanical Soft w/ Thin Liquids; Allergic to strawberry PO Intake: 100% x 5 meals Wt: 219 lbs, No new wt since 01/06 BM: x 2 on 01/11 Meds: Zofran, Lasix, Ferrous sulfate, Colace, Humulin, Pepcid, Vit C Labs: Vit D17-1215(H), Iron-16(L), Cr-1.5(H) Goals: Continue PO intake >/= 75%, BM q 3 days, tolerate mech soft diet, labs WNL, stable wt DHS Will continue to Monitor Closely Clinical Dietitian Following
--- NOTE | 2019-01-14 19:39 | NUR ---
RECEIVED PT LYING IN BED WATCHING TV. PLACED ON CPM. DENIES ANY NEEDS OR PAIN. NO SIGNS OF DISTRESS NOTED. CALL LIGHT AND WATER WITHIN REACH, FALL PRECAUTIONS IN PLACE. WILL CONTINUE TO MONITOR
[2019-01-14 21:42] VITALS: BP 159/86
--- NOTE | 2019-01-15 01:57 | NUR ---
QUIET HOURS. PT LYING IN BED EYES CLOSED RESTING QUIETLY. CPAP IN USE
--- NOTE | 2019-01-15 04:57 | NUR ---
PT LYING IN BED EYES CLOSED RESTING QUIETLY.
[2019-01-15 06:54] LABS: ANION GAP 16.4 mmol/L (8-16); CALCIUM 10.4 mg/dL (8.5-10.1); CARBON DIOXIDE 21.5 mmol/L (21.0-32.0); CREATININE - SERUM 1.2 mg/dL (0.6-1.3); POTASSIUM - SERUM 4.9 mmol/L (3.5-5.1)
[2019-01-15 07:10] LABS: BASOPHILS 0.7 % (0-2); EOSINOPHILS 3.8 % (0-7); HEMATOCRIT 27.5 % (36.0-48.0); HEMOGLOBIN 9.2 g/dL (12-16); IMMATURE GRANULOCYTES 0.9 % (0-5); LYMPHOCYTES 35.4 % (15-50); MCH 26.7 pg (26.0-34.0); MCHC 33.5 g/dL (31.0-37.0); MCV 79.7 fL (80.0-100.0); MEAN PLATELET VOLUME 10.4 fL (7.4-10.4); MONOCYTES 9.7 % (2-11); NEUTROPHILS 49.5 % (40-80); PLATELET COUNT 336 10x3/uL (130-400); RBC 3.45 10x6/uL (4.00-5.40); RDW 17.9 % (11.5-14.5); WBC 5.8 10x3/uL (4.8-10.8)
[2019-01-15 08:36] VITALS: BP 159/86
--- NOTE | 2019-01-15 10:24 | NUR ---
RESTING WO C/O PAIN AT THIS TIME. CL IN REACH.
--- NOTE | 2019-01-15 10:25 | NUR ---
RESTING WO DISTRESS OR C/O PAIN AT THIS TIME. CL IN REACH.
--- NOTE | 2019-01-15 16:12 | NUR ---
RESTING WO C/O PAIN AT THIS TIME. CL IN REACH.
--- NOTE | 2019-01-15 19:00 | NUR ---
BEDSIDE REPORT COMPLETE. PT LYING IN BED ON LEFT SIDE WATCHING TV WITH SON. DENIES ANY NEEDS OR PAIN. NO SIGNS OF DISTRESS NOTED. CALL LIGHT WITHIN REACH, FALL PRECAUTIONS IN PLACE. WILL CONTINUE TO MONITOR
--- NOTE | 2019-01-15 19:20 | NUR ---
ASSISTED PT ON BEDPAN. DENIES FURTHER NEEDS AT THIS TIME. BED IN LOW SIDE RAILS X2. CL IN REACH. A/O X4.
[2019-01-15 19:45] VITALS: BP 154/89
--- NOTE | 2019-01-15 19:46 | NUR ---
PLACED LEFT KNEE ON CPM FOR AN HOUR
--- NOTE | 2019-01-15 23:16 | NUR ---
QUIET HOURS. PT LYING IN BED EYES CLOSED RESTING QUIETLY. CPAP IN USE
--- NOTE | 2019-01-16 03:24 | NUR ---
PT LYING IN BED ON LEFT SIDE EYES CLOSED RESTING QUIETLY.
[2019-01-16 07:18] VITALS: BP 133/82
[2019-01-16 11:58] VITALS: BP 153/77
--- NOTE | 2019-01-16 12:08 | NUR ---
VISITOR AT BS. PAIN MED GIVEN. RESP EVEN AND UNLABORED. CL IN REACH.
--- NOTE | 2019-01-16 16:58 | NUR ---
NO CHANGE IN ASSESSMENT. CL IN REACH. NO DISTRESS NOTED.
[2019-01-16 19:00] VITALS: BP 165/84
--- NOTE | 2019-01-16 19:00 | NUR ---
BEDSIDE REPORT COMPLETE. PT SITTING UP IN BED ALERT AND ORIENTED X4. DENIES ANY NEEDS. C/O 5/10 ACHING PAIN LEFT KNEE. REQUESTS PAIN MEDICATION WITH NIGHT MEDS. VS STABLE. CALL LIGHT WITHIN REACH, FALL PRECAUTIONS IN PLACE. WILL CONTINUE TO MONITOR
--- NOTE | 2019-01-16 20:27 | NUR ---
PT C/O SMALL HARD STOOLS ADMINISTERED MIRALAX, ADVISED PT THAT IF SHE DOES NOT HAVE ANY RESULTS INFORM NURSING STAFF. PT VERBALIZED UNDERSTANDING
--- NOTE | 2019-01-16 22:49 | NUR ---
PT LYING IN BED EYES CLOSED RESTING QUIETLY.
--- NOTE | 2019-01-17 02:05 | NUR ---
FOUND PT AWAKE UNABLE TO SLEEP. ASSISTED WITH SHOWER PT WAS ABLE TO PERFORM WITH SUPERVISION INDEPENTENTLY. COMPLETE LINEN CHANGE DONE. PT NOW LYING IN BED WITH CPAP ON RESTING QUIETLY.
--- NOTE | 2019-01-17 05:17 | NUR ---
PT LYING IN BED EYES CLOSED RESTING QUIETLY.
--- NOTE | 2019-01-17 07:57 | NUR ---
THE PATIENT WAS LYING IN BED AND TALKING TO STAFF WHEN STAFF ENTERED HER ROOM. BED IS IN THE LOW POSITION WITH SIDERAILS X2 AND CALL LIGHT WITHIN REACH. THE PATIENT WAS EDUCATED ON THE USE OF A CALL LIGHT AND DEMONSTRATES UNDERSTANDING VIA TEACHBACK METHOD. THE PATIENT APPEARS COMFORTABLE AND HAS NO QUESTIONS OR COCNERNS AT THIS TIME.
[2019-01-17 11:55] VITALS: BP 126/79
[2019-01-17 18:41] VITALS: BP 150/90
--- NOTE | 2019-01-17 19:20 | NUR ---
GREETED PATIENT AND INTRODUCED MYSELF. PATIENT IS SITTING UP ON SIDE OF THE BED AND DENIES ANY NEEDS AT THIS TIME. RESPIRATIONS EVEN. NO S/S OF DISTRESS. CALL LIGHT IN REACH.
--- NOTE | 2019-01-18 02:11 | NUR ---
PT. RESTING QUIETLY WITH EYES CLOSED. RESPIRATIONS EVEN. NO S/S OF DISTRESS. PERSONAL CPAP IN USE. CALL LIGHT IN REACH.
--- NOTE | 2019-01-18 07:58 | NUR ---
RESTING WITH EYES CLOSED. NO DISTRESS NOTED. RESP EVEN AND UNLABORED. CL IN REACH.
[2019-01-18 08:21] VITALS: BP 135/91
--- NOTE | 2019-01-18 12:09 | NUR ---
ITTING IN CHAIR EATING LUNCH. CL IN REACH.
--- NOTE | 2019-01-18 16:55 | NUR ---
HAD SHOWER THIS AFTERNOON. NO CHANGE IN ASSESSMENT. CL IN REACH. SITING IN WC.
--- NOTE | 2019-01-18 19:09 | NUR ---
GREETED PATIENT AND INTRODUCED MSYELF. PATIENT IS LAYING IN BED AND STATES THAT HER PAIN IN HER LEFT KNEE IS 10/10. ADMINISTERED PRN PAIN MEDICATION. FAMILY MEMBER AT BEDSIDE. RESPIRATIONS EVEN. NO S/S OF DISTRESS. CALL LIGHT IN REACH.
[2019-01-18 20:46] VITALS: BP 145/86
--- NOTE | 2019-01-19 01:15 | NUR ---
PATIENT AWAKE AND ASSISTED TO BATHROOM USING WHEELCHAIR. BACK TO BED AND REPOSITIONED FOR COMFORT. CALL LIGHT IN REACH.
[2019-01-19 06:34] LABS: BASOPHILS 0.6 % (0-2); EOSINOPHILS 4.2 % (0-7); HEMATOCRIT 28.8 % (36.0-48.0); HEMOGLOBIN 9.3 g/dL (12-16); IMMATURE GRANULOCYTES 0.2 % (0-5); LYMPHOCYTES 38.1 % (15-50); MCH 26.4 pg (26.0-34.0); MCHC 32.3 g/dL (31.0-37.0); MCV 81.8 fL (80.0-100.0); MEAN PLATELET VOLUME 10.7 fL (7.4-10.4); MONOCYTES 10.3 % (2-11); NEUTROPHILS 46.6 % (40-80); PLATELET COUNT 273 10x3/uL (130-400); RBC 3.52 10x6/uL (4.00-5.40); RDW 18.1 % (11.5-14.5); WBC 5.2 10x3/uL (4.8-10.8)
--- NOTE | 2019-01-19 07:22 | NUR ---
RESTING WITH EYES CLOSED. RESP EVEN AND UNLABORED. NO DISTRESS. CL IN REACH.
[2019-01-19 07:27] LABS: ANION GAP 13.3 mmol/L (8-16); CALCIUM 10.5 mg/dL (8.5-10.1); CARBON DIOXIDE 25.3 mmol/L (21.0-32.0); CREATININE - SERUM 1.3 mg/dL (0.6-1.3); POTASSIUM - SERUM 4.6 mmol/L (3.5-5.1)
[2019-01-19 07:56] VITALS: BP 152/90
--- NOTE | 2019-01-19 11:36 | NUR ---
RESTING IN BED WO C/O PAIN AT THIS TIME. FAMILY AT BS.
--- NOTE | 2019-01-19 13:43 | NUR ---
Nutrition Follow-up: Diet: Diabetic [facility] Soft, thin liquids PO intake: 90-100% all meals Wt: 220# (01/06/19) +BM Labs, meds, and skin assessment reviewed. Continue current nutrition regimen. RD Following.
--- NOTE | 2019-01-19 15:26 | NUR ---
NO CHANGE IN ASSESSMENT. RESP EVEN AND UNLABORED. PAIN MED GIVEN. CL IN REACH.
--- NOTE | 2019-01-19 19:10 | NUR ---
BEDSIDE REPORT COMPLETE. PT SITTING UP IN BED. ALERT AND ORIENTED X4. PT VOICED THAT SHE IS UPSET ABOUT BEING DC TOMORROW D/T STILL HAVING A LOT OF PAIN. EXPLAINED TO PT THAT THE PAIN WILL GET BETTER OVER TIME AND ONCE HOME SHE WILL FEEL BETTER IN HER OWN FAMILIAR SURROUNDINGS. PT VERBALIZED UNDERSTANDING AND FELT MORE CONFIDENT ABOUT GOING HOME TOMORROW. VS STABLE. NO SIGNS OF DISTRESS NOTED. DRESSING LLE C/D/I. CALL LIGHT AND WATER WITHIN REACH, FALL PRECAUTIONS IN PLACE. WILL CONTINUE TO MONITOR
[2019-01-19 21:59] VITALS: BP 128/81
--- NOTE | 2019-01-20 01:12 | NUR ---
QUIET HOURS. PT LYING IN BED EYES CLOSED RESTING QUIETLY. CPAP ON.
--- NOTE | 2019-01-20 03:41 | NUR ---
PT LYING IN BED EYES CLOSED RESTING QUIETLY
[2019-01-20 07:00] VITALS: BP 128/81
--- NOTE | 2019-01-20 07:56 | NUR ---
AWAKE IN BED EATING BREAKFAST AT THIS TIME. DENIES ANY NEEDS. CALL LIGHT IN REACH. WILL CONTINUE PLAN OF CARE.
[2019-01-20 08:00] VITALS: BP 128/81
--- NOTE | 2019-01-20 09:55 | NUR ---
UP IN BED AWAKE AT THIS TIME WATCHING TV. NO ACUTE DISTRESS NOTED. VSS. CALL LIGHT IN REACH. WILL CONITINUE PLAN FO CARE.
--- NOTE | 2019-01-20 10:00 | NUR ---
patient disharging home today with family. [facility] will provide therapy at home. No new DME will be needed at this time. Dr. tariq 01/26/19 @ 2:30, Dr. Belcher 02/03/19 @ 1:00 , Dr. Holliday/ Bossman MCKENNA 02/02/19 @ 8:40. Patient Choice Form and IMFM forms signed, copy given to patient and filed in chart. Discharge instructions with FIM data faxed to PCP, Home Health and reviewed with patient.
[2019-01-20] MEDS ORDERED: HYDROCODON-ACE1 EAC7 PO (11:44)
--- NOTE | 2019-01-20 11:54 | NUR ---
UP IN ROOM AT THIS TIME PERFORMING ADLS. NO ACUTE DISTRESS NOTED. VSS. CALL LIGHT IN REACH. DENIES ANY NEEDS. WILL CONTINUE PLAN OF CARE.
--- NOTE | 2019-01-20 13:33 | NUR ---
NOTED PT TO DISCHARGE HOME AT THIS TIME. PT HAS SIGNED ALL DISCHARGE PAPERWORK, AND HAS RECIEVED HARD SCRIPT, DISCHARGE PAPERWORK, TEACHING MATERIAL, AND INFORMATION REGARDING UPCOMING APPTS. PT STATES IS ABLE TO OBTAIN DISCHARGE MEDS, AND IS ABLE TO GET TO UPCOMING APPTS. DENIES ANY QUESTIONS OR CONCERNS. ALSO TO HAVE HOME HEALTH SEE HER. NO ACUTE DISTRESS NOTED. WILL CONTINUE PLAN OF CARE.
--- NOTE | 2019-01-20 13:40 | NUR ---
DISCHARGED HOME AT THIS TIME VIA PERSONAL VEHICLE WITH FAMILY. NO ACUTE DISTERSS NOTED. LEFT WITH ALL PERSONAL ITEMS, DISCHARGE PAPERWORK, HARD SCRIPTS, WALKER. NO ACUTE DISTRESS NOTED. NO FURTHER ACTIONS.
== END 2019-01-20 13:40 | disposition home health service (06) | DRG 70 ==
LOC: D.REHAB 15:17 → D.SDCHOLD 01-06 11:49 → D.REHAB 01-06 11:55
PROVIDERS: Internal Medicine Nephrology; ADMIT Emergency Medicine; ATTEND Emergency Medicine
DX: G93.41 Metabolic encephalopathy (principal); N17.0 Acute kidney failure with tubular necrosis; I13.0 Hypertensive heart and chronic kidney disease with heart failure and stage 1 through stage 4 chronic kidney disease, or unspecified chronic kidney disease; R13.12 Dysphagia, oropharyngeal phase; D50.9 Iron deficiency anemia, unspecified; I25.10 Atherosclerotic heart disease of native coronary artery without angina pectoris; I50.9 Heart failure, unspecified; I10 Essential (primary) hypertension; G47.33 Obstructive sleep apnea (adult) (pediatric); K21.9 Gastro-esophageal reflux disease without esophagitis; E78.5 Hyperlipidemia, unspecified; E87.5 Hyperkalemia; F41.8 Other specified anxiety disorders; E11.40 Type 2 diabetes mellitus with diabetic neuropathy, unspecified; Z96.652 Presence of left artificial knee joint; E11.65 Type 2 diabetes mellitus with hyperglycemia; E11.22 Type 2 diabetes mellitus with diabetic chronic kidney disease; N18.9 Chronic kidney disease, unspecified

== ENCOUNTER → 2019-02-02 11:02 | Outpatient (CLI) | payer MEDICARE ==
[2019-01-06 10:49] VITALS: BMI 45.9
[~2019-02-02 11:02] MED LIST changes: +COUMADIN5 MG PO; +COUMADIN7.5 MG PO; +HYDROCODON-ACE1 EAC7 PO; -LASIX20 MG; +LEVAQUIN750 MG PO; +LOVENOX80 MG/0.8 SC
== END | disposition home or self-care (01) ==
LOC: D.RAD 11:02
PROVIDERS: ATTEND Nurse Practitioner Family
DX: M25.552 Pain in left hip (principal); E11.49 Type 2 diabetes mellitus with other diabetic neurological complication; N17.9 Acute kidney failure, unspecified; Z86.718 Personal history of other venous thrombosis and embolism; Z68.41 Body mass index [BMI] 40.0-44.9, adult

== ENCOUNTER 2019-02-03 12:53 | Inpatient (IN) | payer MEDICARE ==
[~2019-02-03] VITALS: Ht 147.3 cm; Wt 84.4 kg
[~2019-02-03 12:53] MED LIST changes: -COUMADIN5 MG PO; -COUMADIN7.5 MG PO; -LEVAQUIN750 MG PO; -LOVENOX80 MG/0.8 SC
--- NOTE | 2019-02-03 15:30 | NUR ---
NEW PATIENT DIRECT ADMIT FROM RADIOLOGY. PATIENT DIAGNOSED WITH DVT. PATIENT TO ROOM VIA AND HOSPITAL PERSONNEL AND GRANDSON. PATIENT IS STABLE AND VSS. PATIENT DENIES ANY NEEDS OR PAIN. WILL CONTINUE WITH PLAN OF CARE. PATIENT ORIENTED TO ROOM AND CALL. SR UP X 2 BED IN LOW POSTION AND CALL LIGHT IN REACH,. .
[2019-02-03] MEDS ORDERED: MYRBETRIQ25 MG PO (15:32)
[2019-02-03] MEDS ORDERED: BACLOFEN10 MG PO (15:33)
[2019-02-03 15:37] VITALS: BP 120/54; BMI 38.9
[2019-02-03 15:49] VITALS: BP 120/54
[2019-02-03 17:57] LABS: APTT 39.6 SECONDS (22.8-39.4); D-DIMER-QUANTITATIVE 1.6 ug/mLFEU (0.20-0.54); INR 1.62 (0.85-1.17); PROTIME 18.6 SECONDS (11.6-15.0)
[2019-02-03 18:15] LABS: CKMB 1.3 U/L (0.0-3.6); CREATINE KINASE 150 UL (21-215); TROPONIN-I < 0.017 ng/mL (0.000-0.060)
--- NOTE | 2019-02-03 18:16 | NUR ---
PATIENT UP TO BR. PATIENT IS STABLE AND DENIES ANY NEEDS OR PAIN. SR UP X 2 BED IN LOW POSITION AND CALL LIGHT INR EACH.
[2019-02-03 19:40] VITALS: BP 127/61
--- NOTE | 2019-02-03 21:01 | NUR ---
PATIENT LYING IN BED. REASSESSED PAIN AFTER TAKING NORCO 5MG. PATIENT STATES PAIN IS STILL A 01/11. CALLED IRAM MOTA APRN AND WAS GIVEN ORDERS TO GIVE HER ANOTHER 5MG NORCO AND D/C NORCO 5MG. ORDER FOR NORCO 10MG Q 4.
[2019-02-03 23:51] LABS: CKMB 0.9 U/L (0.0-3.6); CREATINE KINASE 127 UL (21-215); TROPONIN-I < 0.017 ng/mL (0.000-0.060)
[2019-02-04] VITALS (7 sets, daily range): BP systolic 106–138; BP diastolic 50–78; Ht 147.3 cm; Wt 84.4 kg
--- NOTE | 2019-02-04 01:25 | NUR ---
STARTED IV ON RIGHT SHOULDER AFTER SEVERAL ATTEMPTS. SALINE LOCKED.
--- NOTE | 2019-02-04 07:10 | NUR ---
REPORT RECEIVED FROM SCHEDULE CLERK AND PATIENT CARE ASSUMED. PATIENT LAYING IN BED WITH EYES CLOSED AND BREATHING EVENLY. PATIENT IS STABLE AND VSS. WILL CONTINUE WITH PLAN OF CARE. SR UP X 2 BED IN LOW POSITION AND CALL LIGHT IN REACH.
[2019-02-04 08:58] LABS: HEMATOCRIT 28.2 % (36.0-48.0); HEMOGLOBIN 8.7 g/dL (12-16); MCHC 30.9 g/dL (31.0-37.0); MCV 87.6 fL (80.0-100.0); MEAN PLATELET VOLUME 9.8 fL (7.4-10.4); RBC 3.22 10x6/uL (4.00-5.40); RDW 18.7 % (11.5-14.5); WBC 5.4 10x3/uL (4.8-10.8)
[2019-02-04 08:59] LABS: PLATELET COUNT 163 10x3/uL (130-400)
[2019-02-04 09:22] LABS: EOSINOPHILS 5 % (0-7); LYMPHOCYTES 42 % (15-50); MONOCYTES 7 % (2-11); NEUTROPHILS 45 % (40-80)
[2019-02-04 09:23] LABS: PLATELET ESTIMATE NORMAL
--- NOTE | 2019-02-04 09:25 | NUR ---
ROUTINE MEDS GIVEN.PATIENT COMPLAINED OF ABD APIN. MEDICATED PER MAR WITH NORCO. REFILLED 2 ICE PACKS. WILL CONTINUE TO MONITOR. SR UP X 2 BED IN LOW POSITION AND CALL LIGHT IN REACH.
[2019-02-04 09:39] LABS: ALBUMIN 3.1 g/dL (3.4-5.0); ALKALINE PHOSPHATASE 136 U/L (46-116); ALT (SGPT) 33 U/L (10-68); BILIRUBIN - TOTAL 0.24 mg/dL (0.2-1.3); CALCIUM 8.3 mg/dL (8.5-10.1); CHLORIDE - SERUM 110 mmol/L (98-107); CREATINE KINASE 126 UL (21-215); CREATININE - SERUM 1.4 mg/dL (0.6-1.3); MAGNESIUM - SERUM 1.2 mg/dL (1.8-2.4); POTASSIUM - SERUM 4.3 mmol/L (3.5-5.1); SODIUM 142 mmol/L (136-145); UREA NITROGEN 24 mg/dL (7-18); eGFR NON AFRICAN AMERICAN 39 mL/min (90-120)
[2019-02-04 09:40] LABS: CALC OSMOLALITY 289 mosm/kg (275-300); GLUCOSE 149 mg/dL (74-106); TROPONIN-I < 0.017 ng/mL (0.000-0.060)
--- NOTE | 2019-02-04 10:57 | NUR ---
GAVE PATIENT MORE ICE WATER AND MORE ICE IN ICE BAGS. WILL CONTINUE TO MONITOR. SR UP X 2 BED IN LOW POSITION AND CALL LIGHT IN REACH.
--- NOTE | 2019-02-04 12:09 | CN ---
PATIENT NAME:MARBIN WILKINS MEDICAL RECORD: [id number] : 48 LOCATION:D.M3 D.1207 ADMIT DATE: 02/03/19 ACCOUNT: [id number] CONSULTING PHYSICIAN: WILLEM AHUJA MD REFERRING PHYSICIAN: STEFANIE OGDEN DO DATE OF CONSULTATION: 02/03/2019 REASON FOR ADMISSION: Recurrent DVT, on Xarelto. HISTORY OF PRESENT ILLNESS: This is a 69-year-old female with renal insufficiency that presented with leg pain. She has had a hip x-ray yesterday with Dr. Holliday and was called today and she was sent over for a Doppler and has a DVT, on Xarelto. REVIEW OF SYSTEMS: Pain in her leg. All the rest of her review of systems is negative. PAST MEDICAL HISTORY: 1. ESRD. 2. Coagulopathy with previous deep venous thrombosis. 3. Anemia of CKD. 4. Allergic rhinitis. 5. Iron deficiency anemia. 6. Diabetic neuropathy. 7. Diabetes type 2. PAST SURGICAL HISTORY: Per her medical record. ALLERGIES: INCLUDE IRONED AND ORAL CONTRAST, PENICILLIN, TETRACYCLINE, VALIUM, OXYCODONE, STRAWBERRIES, TALWIN, DARVON, AND BETADINE. HOME MEDICATIONS: Zyrtec, baclofen, Plavix, iron sulfate, Xarelto, Aldactone, hydrocodone, Lyrica, Lasix, potassium, Zantac, Soliqua insulin 5 units t.i.d., metformin, Myrbetriq 25 mg every 24 hours, vitamin C, and ginkgo biloba. SOCIAL HISTORY: No tobacco, alcohol, or illicit drugs. PHYSICAL EXAMINATION: VITAL SIGNS: 142/72, 72 heart rate, and 18 respiratory rate. GENERAL: She is sitting in a wheelchair, dressed nicely. HEENT: Normocephalic and atraumatic. Cranial nerves II-XII are intact. LUNGS: Clear to auscultation. CHEST: Regular rhythm. ABDOMEN: Nontender in all 4 quadrants. She is wearing STEFANIE hose and has tenderness bilaterally in her extremities, but no focal neurological deficit other than decreased sensation. LABORATORY DATA: Pending. ASSESSMENT AND PLAN: 1. Renal insufficiency. We will follow with you. 2. Recurrent DVT is on Xarelto and Plavix as well as aspirin, which is concerning. 3. Anemia of CKD. 4. Diabetes type 2, on multiple medications including metformin. CONSULT REPORT [id number] MARBIN WILKINS 5. Chronic pain syndrome, on outpatient hydrocodone. 6. Numerous allergies. PLAN: We will follow with you. TRANSINT:[id number] Voice Confirmation ID: [id number] DOCUMENT ID: [id number] WILLEM AHUJA MD at 1209 CC: [id number] DICTATION DATE: 02/03/191404 CUSTOMER ENGINEERING SPECIALIST: 02/04/19 0010 ADM IN [place] [id number] [place] [id number]
--- NOTE | 2019-02-04 14:49 | NUR ---
PATIENT RESTING QUIETLY WITH EYES CLOSED AND BREATHING EVENLY. WILL CONTINUE TO MONITOR. SR UP X 2 BED IN LOW POSITION AND CALL LIGHT IN REACH.
--- NOTE | 2019-02-04 18:11 | NUR ---
PATIENT COMPLAINS OF LOWER ABD PAIN. MEDICATED PER MAR WITH NORCO. PROVIDED PATIENT WITH 2 FILLED ICE BAGS. WILL CONTINUE TO MONITOR. SR UP X 2 BED IN LOW POSITION AND CALL LIGHT IN REACH.
--- NOTE | 2019-02-04 19:31 | NUR ---
EVENING ROUNDS COMPLETED. VSS, AAOX3, NO S/S OF DISTRESS. PT DENIES PAIN AT THIS TIME. WILL CPOC. CL WITHIN REACH.
--- NOTE | 2019-02-04 20:29 | MORECARE ---
CASE MANAGEMENT DISCHARGE SUMMARY PATIENT: MARBIN WILKINS UNIT: [id number] ADM DATE: 02/03/19 AGE: 69 : 49 SEX: F ROOM/BED: D.1207 AUTHOR: DA PIERRE PHYSICIAN: REFERRING PHYSICIAN: STEFANIE OGDEN DO DATE OF SERVICE: 02/04/19 Discharge Plan Patient Name: MARBIN WILKINS Facility: [facility]:[place] : 1950 Planned Disposition: Home Anticipated Discharge Date: Discharge Date: Expected LOS: Initial Reviewer: [email or web address] Initial Review Date: 02/04/2019 Generated: 02/04/19 9:28 pm DCPIA - Discharge Planning Initial Assessment Updated by [id number]: Camille Romeo on 02/04/19 8:26 pm * Is the patient Alert and Oriented? Yes * How many steps to enter\exit or inside your home? * PCP JOHNNY * Pharmacy [facility] * Preadmission Environment Home with Family * ADLs Partial Dependent * Partial ADLs (Assistance needed) Ambulation * Other Equipment WALKER, CANE, W/C * List name and contact numbers for known caregivers / representatives who currently or will assist patient after discharge: VALE Beckwith DAUGHTER- [phone] ZION Beckwith SON - [phone] * Verbal permission to speak to the caregivers and representatives has been obtained from the patient. Yes * Community resources currently utilized Home Health * Please name any agencies selected above. [facility] * Additional services required to return to the preadmission environment? No * Can the patient safely return to the preadmission environment? Yes * Has this patient been hospitalized within the prior 30 days at any hospital? Yes Patient Name: MARBIN WILKINS Page [id number] at 2028 All edits/amendments must be made on the electronic document DICTATION DATE: 02/04/192027 MANAGER HOUSEKEEPING: FEDERICO 02/04/192027 RPT#: [id number] DC DATE: STATUS: ADM IN [facility] [address] [place] [address] END OF REPORT
--- NOTE | 2019-02-04 20:43 | MORECARE ---
CASE MANAGEMENT DISCHARGE SUMMARY PATIENT: MARBIN WILKINS UNIT: [id number] ADM DATE: 02/03/19 AGE: 69 : 49 SEX: F ROOM/BED: D.1207 AUTHOR: DA PIERRE PHYSICIAN: REFERRING PHYSICIAN: STEFANIE OGDEN DO DATE OF SERVICE: 02/04/19 Discharge Plan Patient Name: MARBIN WILKINS Facility: [facility]:[place] : 1950 Planned Disposition: Home Anticipated Discharge Date: Discharge Date: Expected LOS: Initial Reviewer: [email or web address] Initial Review Date: 02/04/2019 Generated: 02/04/19 9:42 pm Comments DCP- Discharge Planning Updated by [id number]: Camille Romeo on 02/04/19 7:[address] Patient Name: MARBIN WILKINS Admission Status: Elective Accout number: [id number] Admission Date: 02-03-2019 : 1950 Admission Diagnosis: Attending: STEFANIE OGDEN Current LOS: 1 Anticipated DC Date: Planned Disposition: Home Primary Insurance: MEDICARE A & B Discharge Planning Comments: CM met with patient to complete initial dc planning assessment. CM educated patient on the CM role and verbal consent given by patient to complete assessment. Patient lives at home with her son and grandson where she is partially dependent with her care. At discharge patient plans to return home and feels this is a safe discharge. CM discussed availability of home health, rehab services, and medical equipment. Her grandson will drive her home. Patient has [facility] and plans to resume care with them upon discharge. PAYAM signed. Patient denied known discharge needs at this time. CM will continue to follow and will assist as needed with dc plans/needs. Post Tensioning Ironworker: Camille Romeo DCPIA - Discharge Planning Initial Assessment Updated by [email or web address]: Camille Romeo on 02/04/19 8:26 pm * Is the patient Alert and Oriented? Yes * How many steps to enter\exit or inside your home? * PCP TURNER * Pharmacy [facility] * Preadmission Environment Home with Family * ADLs Partial Dependent * Partial ADLs (Assistance needed) Ambulation * Other Equipment WALKER, CANE, W/C * List name and contact numbers for known caregivers / representatives who currently or will assist patient after discharge: VALE HAGEN - DAUGHTER- [phone] ZION Beckwith SON - [phone] * Verbal permission to speak to the caregivers and representatives has been obtained from the patient. Yes * Community resources currently utilized Home Health * Please name any agencies selected above. [facility] * Additional services required to return to the preadmission environment? No * Can the patient safely return to the preadmission environment? Yes * Has this patient been hospitalized within the prior 30 days at any hospital? Yes Coverage Notice Reviewer: [id number] - Camille Romeo Notice Issued Date-Time: 02/04/2019 12:40 Notice Type: Patient Choice Letter Notice Delivered To: Patient Relationship to Patient: Self Hospital Education Coordinator Name: Delivery Method: HAND - Hand Delivered Ping Days: Prior Verbal Notification: Recipient Understood Notice: Yes Recipient Signature: Yes Med Rec Note Co-signed by Attending: Coverage Notice Comment: Last DP export: 02/04/19 7:29 p Patient Name: MARBIN WILKINS Page [phone] at 2043 All edits/amendments must be made on the electronic document DICTATION DATE: 02/04/192041 FULL STACK NET DEVELOPER: FEDERICO 02/04/192041 RPT#: [id number] DC DATE: STATUS: ADM IN [facility] [address] [place] [address] END OF REPORT
[2019-02-05 04:00] VITALS: BP 123/76
[2019-02-05 05:58] LABS: BASOPHILS 0.2 % (0-2); HEMATOCRIT 25.6 % (36.0-48.0); HEMOGLOBIN 8.2 g/dL (12-16); LYMPHOCYTES 45.1 % (15-50); MCH 27.3 pg (26.0-34.0); MEAN PLATELET VOLUME 9.5 fL (7.4-10.4); MONOCYTES 9.5 % (2-11); NEUTROPHILS 41.2 % (40-80); PLATELET COUNT 144 10x3/uL (130-400); RDW 18.1 % (11.5-14.5); WBC 5.3 10x3/uL (4.8-10.8)
[2019-02-05 06:02] LABS: MCV 85.3 fL (80.0-100.0)
[2019-02-05 06:25] LABS: ALBUMIN 2.8 g/dL (3.4-5.0); ANION GAP 10.9 mmol/L (8-16); BILIRUBIN - TOTAL 0.29 mg/dL (0.2-1.3); CALCIUM 8.4 mg/dL (8.5-10.1); CARBON DIOXIDE 26.3 mmol/L (21.0-32.0); MAGNESIUM - SERUM 1.3 mg/dL (1.8-2.4); POTASSIUM - SERUM 4.2 mmol/L (3.5-5.1); PROTEIN - SERUM 5.9 g/dL (6.4-8.2)
[2019-02-05 07:41] VITALS: BP 98/71
--- NOTE | 2019-02-05 07:58 | NUR ---
ROUNDING DONE WITH PATIENT VOICING NO NEEDS AT THIS TIME. [facility] SHIFT LEADDISABILITY SERVICES COORDINATOR ALREADY MEDICATED PAITENT WITH NORCO. LEFT LEG FROM UPPER THIGH TO FOOT IS SWOLLEN, UP ON PILLOW. LARGE BANDAID SEEN TO LEFT SANDERS. ON ROOM AIR. RIGHT UPPER SHOULDER SEEN WITH SALINE LOCK. ON EP, K+ IS 4.2, MAG IS 1.3 WILL COVER PER PROTOCOL. ON LOVENOX. WILL CPOC.
--- NOTE | 2019-02-05 08:27 | NUR ---
SITTING ON SIDE OF BED EATING BREAKFAST. WILL PASS AM MEDS PAST .
--- NOTE | 2019-02-05 10:01 | NUR ---
KARIE TRUJILLO, NEEDLE LEADER IN TO SEE PATIENT.
--- NOTE | 2019-02-05 10:29 | NUR ---
1027-UP TO SHOWER, COMPLETE BED LINEN CHANGE ODNE.
--- NOTE | 2019-02-05 10:40 | NUR ---
CALLED KARIE SPENCE APN FOR CONTINUATOPM OF HOME DOSE OF INHALERS. NEW ORDERS RECEIVED.
[2019-02-05 12:19] VITALS: BP 98/63
--- NOTE | 2019-02-05 16:18 | NUR ---
LARGE BANDAID REMOVED FROM LEFT SANDERS. 2.4 CM X 1.5 CM STAGE 2 WITH WHITE BASE SEEN. NO DRAINAGE. COVERED WITH MEPILEX AND DATED.
[2019-02-05 16:22] VITALS: BP 125/65
[2019-02-05 19:22] VITALS: BP 124/69
--- NOTE | 2019-02-05 19:23 | NUR ---
PATIENT RESTING IN BED WITH NO S/S OF DISTRESS AND DENIES NEEDS AT THIS TIME. VSS. BED IN LOWEST POSITION AND CALL LIGHT WITHIN REACH. ENCOURAGED THE PATIENT TO CALL IF SHE HAS NEEDS. WILL CONTINUE TO MONITOR.
[2019-02-06 00:36] VITALS: BP 182/77
[2019-02-06 04:40] VITALS: BP 98/42
[2019-02-06 04:48] LABS: BASOPHILS 0.4 % (0-2); EOSINOPHILS 3.5 % (0-7); HEMATOCRIT 25.4 % (36.0-48.0); IMMATURE GRANULOCYTES 0.2 % (0-5); LYMPHOCYTES 37.2 % (15-50); MCH 26.9 pg (26.0-34.0); MCHC 31.5 g/dL (31.0-37.0); MCV 85.5 fL (80.0-100.0); MEAN PLATELET VOLUME 10.2 fL (7.4-10.4); MONOCYTES 9.4 % (2-11); NEUTROPHILS 49.3 % (40-80); PLATELET COUNT 165 10x3/uL (130-400); RBC 2.97 10x6/uL (4.00-5.40); RDW 18.1 % (11.5-14.5); WBC 5.5 10x3/uL (4.8-10.8)
[2019-02-06 05:09] LABS: ALBUMIN 2.7 g/dL (3.4-5.0); ANION GAP 11.4 mmol/L (8-16); BILIRUBIN - TOTAL 0.14 mg/dL (0.2-1.3); CALCIUM 8.9 mg/dL (8.5-10.1); CARBON DIOXIDE 27.8 mmol/L (21.0-32.0); CREATININE - SERUM 1.1 mg/dL (0.6-1.3); MAGNESIUM - SERUM 1.3 mg/dL (1.8-2.4); POTASSIUM - SERUM 4.2 mmol/L (3.5-5.1); PROTEIN - SERUM 5.8 g/dL (6.4-8.2)
[2019-02-06 07:40] VITALS: BP 114/80; BP 144/80
--- NOTE | 2019-02-06 08:09 | NUR ---
GAVE AM MEDS AT THIS TIME. PT HAD TROUBLE SWALLOWING PILLS. PT UP TO SIDE OF BED, EATING BREAKFAST, A/O X4, RESP EVEN AND NONLABORED ON RA. RT HAND IV INFUSING NS AT 125. PT DENIES ANY NEEDS AT THIS TIME. CALL LIGHT IN REACH, NAD NOTED,W ILL CONTINUE TO MONITOR.
--- NOTE | 2019-02-06 11:33 | NUR ---
BLOOD SUGAR OF 248, 4 UNITS OF INSULIN GIVEN PER S/S. PT ASKING IF SHE CAN GET SOME TYLENOL FOR PAIN INSTEAD OF THE NORCO. WILL CALL DOCTOR AND SEE IF SHE CAN HAVE ORDER FOR TYLENOL. PT DENIES ANY OTHER NEEDS AT THIS TIME. CALL LIGHT IN JOCELYN, KEIRY NOTED,Hugh GONZALEZ ONTINUE TO MONITOR.
[2019-02-06 11:59] VITALS: BP 144/63
--- NOTE | 2019-02-06 13:25 | NUR ---
INFORMED DR. MENDOZA THAT PT IS ASKING IF SHE CAN HAVE TYLENO ORDERED INSTEAD OF TAKING THE NORCO. PER DR. MENDOZA, NEW FOR 500MG OF TYLNOL Q6PRN FOR PAIN. 1327- GAVE 500MG OF TYLENOL FOR PAIN LEVE OF 01/11. PT DENIES ANY OTHER NEEDS A THIS TIME. CALL LIGHT IN REACH, NAD NOTED,W ILL CONTINUE TO MONITOR.
--- NOTE | 2019-02-06 14:00 | NUR ---
PT STILL HAVING PAIN 01/11, OFFERED PT NORCO AND PT DECLINED, STATED THAT SHE DID NOT WANT TO TAKE THE NORCO. EXPLAINED TO PT THE IMPORTANCE OF KEEPING HER PAIN LEVEL UNDER CONTROL, PT STILL DOES NOT WANT TO TAKE NORCO.
--- NOTE | 2019-02-06 15:42 | NUR ---
GAVE NORCO FOR PAIN LEVEL OF 10/10. PT UP TO SIDE OF BED,DENIES ANY OTHER NEEDS AT THIS TIME. CALL LIGHT IN REACH, NAD NOTED. WILL CONTINUE TO MONITOR.
[2019-02-06 16:04] VITALS: BP 146/78
--- NOTE | 2019-02-06 18:30 | NUR ---
PT UP TO SIDE OF BED,DENIES ANY NEEDS AT THIS TIME. CALL LIGHT IN REACH, NAD NOTED.
[2019-02-06 19:11] VITALS: BP 142/65
--- NOTE | 2019-02-06 19:12 | NUR ---
PATIENT RESTING IN BED AND DENIES NEEDS AT THIS TIME. NO S/S OF DISTRESS. VSS. BED IN LOWEST POSITION AND CALL LIGHT WITHIN REACH. ENCOURAGED THE PATIENT TO CALL IF SHE HAS NEEDS. WILL CONTINUE TO MONITOR.
[2019-02-07 01:00] VITALS: BP 137/71
[2019-02-07 04:20] VITALS: BP 130/48
[2019-02-07 06:24] LABS: BASOPHILS 0.3 % (0-2); EOSINOPHILS 3.9 % (0-7); HEMATOCRIT 26.2 % (36.0-48.0); HEMOGLOBIN 8.3 g/dL (12-16); IMMATURE GRANULOCYTES 0.6 % (0-5); MCH 27.1 pg (26.0-34.0); MCHC 31.7 g/dL (31.0-37.0); MCV 85.6 fL (80.0-100.0); MEAN PLATELET VOLUME 10.2 fL (7.4-10.4); MONOCYTES 8.6 % (2-11); NEUTROPHILS 47.6 % (40-80); PLATELET COUNT 171 10x3/uL (130-400); RBC 3.06 10x6/uL (4.00-5.40); RDW 18.7 % (11.5-14.5); WBC 6.5 10x3/uL (4.8-10.8)
[2019-02-07 06:41] LABS: ALBUMIN 2.9 g/dL (3.4-5.0); ANION GAP 12.4 mmol/L (8-16); BILIRUBIN - TOTAL 0.22 mg/dL (0.2-1.3); CALCIUM 9.5 mg/dL (8.5-10.1); CARBON DIOXIDE 26.2 mmol/L (21.0-32.0); MAGNESIUM - SERUM 1.6 mg/dL (1.8-2.4); POTASSIUM - SERUM 4.6 mmol/L (3.5-5.1); PROTEIN - SERUM 6.1 g/dL (6.4-8.2)
--- NOTE | 2019-02-07 07:22 | NUR ---
PT UP GETTING OUT OF THE SHOWER, NO S/S OF DISTRESS AT THIS TIME. IV LOCATED TO RIGHT SHOULDER CURRENTLY SALINE LOCKED. DENIES ANY NEEDS AT THIS TIME, WILL CONT TO MONITOR.
[2019-02-07 08:08] LABS: HEXAGONAL PHASE PHOS 0 sec (0-11); LUPUS - INTERPRETATION Comment: (()); LUPUS - dRVVT CONFIRMATION 1.2 ratio (0.8-1.2); PTT-LA 57.6 sec (0.0-51.9); PTT-LA MIX 52.7 sec (0.0-48.9)
[2019-02-07 08:22] VITALS: BP 134/80
[2019-02-07] MEDS ORDERED: LOVENOX80 MG/0.8 SC (11:41)
--- NOTE | 2019-02-07 14:11 | MORECARE ---
CASE MANAGEMENT DISCHARGE SUMMARY PATIENT: MARBIN WILKINS UNIT: [id number] ADM DATE: 02/03/19 AGE: 69 : 49 SEX: F ROOM/BED: D.1207 AUTHOR: DA PIERRE PHYSICIAN: REFERRING PHYSICIAN: STEFANIE OGDEN DO DATE OF SERVICE: 02/07/19 Discharge Plan Patient Name: MARBIN WILKINS Facility: [facility]:[place] : 1950 Planned Disposition: Home Anticipated Discharge Date: Discharge Date: Expected LOS: Initial Reviewer: [email or web address] Initial Review Date: 02/04/2019 Generated: 02/07/19 3:11 pm Comments DCP- Discharge Planning Updated by [email or web address]: Wendie Xie on 02/07/19 1:[address] Patient Name: MARBIN WILKINS Admission Status: Elective Accout number: [id number] Admission Date: 02-03-2019 : 1950 Admission Diagnosis: Attending: STEFANIE OGDEN Current LOS: 4 Anticipated DC Date: Planned Disposition: Home Primary Insurance: MEDICARE A & B Discharge Planning Comments: CM SPOKE WITH PATIENT AND SHE STATES SHE IS NOT ALLERGIC TO COUMADIN, THAT WAS AN ALLERGY ADDED OVER 30YEARS AGO. STATES WANTS TO TAKE IT VERSUS THE LOVENOX. I SPOKE WITH DR. HYMAN AND SHE STATES TO GIVE HER ONE TIME DOSE COUMADIN 5MG PO AND SEE HOW SHE DOES. IF WORKS WELL WILL ANTICIPATE DC IN THE MORNING. CM TO FOLLOW AND ASSIST. Field Court Researcher: Wendie Xie DCP- Discharge Planning Updated by [email or web address]: Camille Romeo on 02/04/19 7:[address] Patient Name: MARBIN WILKINS Admission Status: Elective Accout number: [id number] Admission Date: 02-03-2019 : 1950 Admission Diagnosis: Attending: STEFANIE OGDEN Current LOS: 1 Anticipated DC Date: Planned Disposition: Home Primary Insurance: MEDICARE A & B Discharge Planning Comments: CM met with patient to complete initial dc planning assessment. CM educated patient on the CM role and verbal consent given by patient to complete assessment. Patient lives at home with her son and grandson where she is partially dependent with her care. At discharge patient plans to return home and feels this is a safe discharge. CM discussed availability of home health, rehab services, and medical equipment. Her grandson will drive her home. Patient has [facility] and plans to resume care with them upon discharge. PAYAM signed. Patient denied known discharge needs at this time. CM will continue to follow and will assist as needed with dc plans/needs. Field Court Researcher: Camille Romeo DCPIA - Discharge Planning Initial Assessment Updated by [email or web address]: Camille Romeo on 02/04/19 8:26 pm * Is the patient Alert and Oriented? Yes * How many steps to enter\exit or inside your home? * PCP TURNER * Pharmacy [facility] * Preadmission Environment Home with Family * ADLs Partial Dependent * Partial ADLs (Assistance needed) Ambulation * Other Equipment WALKER, CANE, W/C * List name and contact numbers for known caregivers / representatives who currently or will assist patient after discharge: ALETAPIETER PRADHAN- [phone] ZION MCKINNON - [phone] * Verbal permission to speak to the caregivers and representatives has been obtained from the patient. Yes * Community resources currently utilized Home Health * Please name any agencies selected above. [facility] * Additional services required to return to the preadmission environment? No * Can the patient safely return to the preadmission environment? Yes * Has this patient been hospitalized within the prior 30 days at any hospital? Yes Coverage Notice Reviewer: [id number] - Camille Zarater Notice Issued Date-Time: 02/04/2019 12:40 Notice Type: Patient Choice Letter Notice Delivered To: Patient Relationship to Patient: Self Manufacturing Group Leader Name: Delivery Method: HAND - Hand Delivered Ping Days: Prior Verbal Notification: Recipient Understood Notice: Yes Recipient Signature: Yes Med Rec Note Co-signed by Attending: Coverage Notice Comment: Reviewer: [id number] - Wendie Xie Notice Issued Date-Time: 02/07/2019 10:37 Notice Type: IM Discharge Notice Notice Delivered To: Patient Relationship to Patient: Self Manufacturing Group Leader Name: Delivery Method: HAND - Hand Delivered Ping Days: Prior Verbal Notification: Recipient Understood Notice: Yes Recipient Signature: Yes Med Rec Note Co-signed by Attending: Coverage Notice Comment: Last DP export: 02/04/19 7:43 p Patient Name: MARBIN WILKINS Page [phone] at 1411 All edits/amendments must be made on the electronic document DICTATION DATE: 02/07/191409 ELECTRO MECHANIC: FEDERICO 02/07/191409 RPT#: [id number] DC DATE: STATUS: ADM IN [facility] [address] [place] [address] END OF REPORT
[2019-02-07 14:33] LABS: INR 1.26 (0.85-1.17); PROTIME 15.3 SECONDS (11.6-15.0)
[2019-02-07 17:23] VITALS: BP 154/69
[2019-02-07 19:10] VITALS: BP 125/71
--- NOTE | 2019-02-07 19:12 | NUR ---
PATIENT RESTINGI IN BED AND DENIES NEEDS AT THIS TIME. BED IN LOWEST POSITION AND CALL LIGHT WITHIN REACH. VSS. ENCOURAGED THE PATIENT TO CALL IF SHE HAS NEEDS. WILL CONTINUE TO MONITOR.
[2019-02-08 00:21] VITALS: BP 151/79
[2019-02-08 04:08] VITALS: BP 114/67
[2019-02-08 07:00] LABS: BASOPHILS 0.3 % (0-2); EOSINOPHILS 4.4 % (0-7); HEMATOCRIT 28.1 % (36.0-48.0); HEMOGLOBIN 8.8 g/dL (12-16); IMMATURE GRANULOCYTES 0.6 % (0-5); LYMPHOCYTES 36.5 % (15-50); MCH 26.9 pg (26.0-34.0); MCHC 31.3 g/dL (31.0-37.0); MCV 85.9 fL (80.0-100.0); MEAN PLATELET VOLUME 10.3 fL (7.4-10.4); MONOCYTES 9.4 % (2-11); NEUTROPHILS 48.8 % (40-80); PLATELET COUNT 185 10x3/uL (130-400); RBC 3.27 10x6/uL (4.00-5.40); WBC 6.9 10x3/uL (4.8-10.8)
[2019-02-08 07:20] LABS: ALBUMIN 3.4 g/dL (3.4-5.0); ANION GAP 13.1 mmol/L (8-16); BILIRUBIN - TOTAL 0.36 mg/dL (0.2-1.3); CALCIUM 10.1 mg/dL (8.5-10.1); CARBON DIOXIDE 26.3 mmol/L (21.0-32.0); MAGNESIUM - SERUM 1.7 mg/dL (1.8-2.4); POTASSIUM - SERUM 5.4 mmol/L (3.5-5.1); PROTEIN - SERUM 6.4 g/dL (6.4-8.2)
--- NOTE | 2019-02-08 07:28 | NUR ---
PT SITTING UP AT THE SIDE OF THE BED ALERT AND ORIENTED, JUST GOT OUT OF THE SHOWER. NO S/S OF DISTRESS AT THIS TIME. IV LOCATED TO RIGHT SHOULDER, CURRENTLY SALINE LOCKED. DENIES NEEDS AT THIS TIME, WILL CONT TO MONITOR.
[2019-02-08 08:00] VITALS: BP 109/55
--- NOTE | 2019-02-08 10:02 | MORECARE ---
CASE MANAGEMENT DISCHARGE SUMMARY PATIENT: MARBIN WILKINS UNIT: [id number] ADM DATE: 02/03/19 AGE: 69 : 49 SEX: F ROOM/BED: D.1207 AUTHOR: DA PIERRE PHYSICIAN: REFERRING PHYSICIAN: STEFANIE OGDEN DO DATE OF SERVICE: 02/08/19 Discharge Plan Patient Name: MARBIN WILKINS Facility: [facility]:[place] : 1950 Planned Disposition: Home Anticipated Discharge Date: Discharge Date: Expected LOS: Initial Reviewer: [email or web address] Initial Review Date: 02/04/2019 Generated: 02/08/19 11:01 am Comments DCP- Discharge Planning Updated by [id number]: Wendie Xie on 02/08/19 8:[address] Patient Name: MARBIN WILKINS Admission Status: Elective Accout number: [id number] Admission Date: 02-03-2019 : 1950 Admission Diagnosis: Attending: STEFANIE OGDEN Current LOS: 5 Anticipated DC Date: Planned Disposition: Home Primary Insurance: MEDICARE A & B Discharge Planning Comments: PATIENT TO DC HOME TODAY AND RESUME [facility]. DR. HYMAN WANTS A FOLLOW UP APPOINTMENT WITH HER IN 2 WEEKS. CM TO FOLLOW AND ASSIST. IM SIGNED. Flight Crew Scheduler: Wendie Xie DCP- Discharge Planning Updated by [id number]: Wendie Xie on 02/07/19 1:[address] Patient Name: MARBIN WILKINS Admission Status: Elective Accout number: [id number] Admission Date: 02-03-2019 : 1950 Admission Diagnosis: Attending: STEFANIE OGDEN Current LOS: 4 Anticipated DC Date: Planned Disposition: Home Primary Insurance: MEDICARE A & B Discharge Planning Comments: CM SPOKE WITH PATIENT AND SHE STATES SHE IS NOT ALLERGIC TO COUMADIN, THAT WAS AN ALLERGY ADDED OVER 30YEARS AGO. STATES WANTS TO TAKE IT VERSUS THE LOVENOX. I SPOKE WITH DR. HYMAN AND SHE STATES TO GIVE HER ONE TIME DOSE COUMADIN 5MG PO AND SEE HOW SHE DOES. IF WORKS WELL WILL ANTICIPATE DC IN THE MORNING. CM TO FOLLOW AND ASSIST. Flight Crew Scheduler: Wendie Xie DCP- Discharge Planning Updated by [id number]: Camille Romeo on 02/04/19 7:[address] Patient Name: MARBIN WILKINS Admission Status: Elective Accout number: [id number] Admission Date: 02-03-2019 : 1950 Admission Diagnosis: Attending: STEFANIE OGDEN Current LOS: 1 Anticipated DC Date: Planned Disposition: Home Primary Insurance: MEDICARE A & B Discharge Planning Comments: CM met with patient to complete initial dc planning assessment. CM educated patient on the CM role and verbal consent given by patient to complete assessment. Patient lives at home with her son and grandson where she is partially dependent with her care. At discharge patient plans to return home and feels this is a safe discharge. CM discussed availability of home health, rehab services, and medical equipment. Her grandson will drive her home. Patient has [facility] and plans to resume care with them upon discharge. PAYAM signed. Patient denied known discharge needs at this time. CM will continue to follow and will assist as needed with dc plans/needs. Flight Crew Scheduler: Camille Romeo DCPIA - Discharge Planning Initial Assessment Updated by [id number]: Camille Romeo on 02/04/19 8:26 pm * Is the patient Alert and Oriented? Yes * How many steps to enter\exit or inside your home? * PCP TURNER * Pharmacy [facility] * Preadmission Environment Home with Family * ADLs Partial Dependent * Partial ADLs (Assistance needed) Ambulation * Other Equipment WALKER, CANE, W/C * List name and contact numbers for known caregivers / representatives who currently or will assist patient after discharge: VALE XIAO Beckwith DAUGHTER- [phone] ZION XIAO SON - [phone] * Verbal permission to speak to the caregivers and representatives has been obtained from the patient. Yes * Community resources currently utilized Home Health * Please name any agencies selected above. [facility] * Additional services required to return to the preadmission environment? No * Can the patient safely return to the preadmission environment? Yes * Has this patient been hospitalized within the prior 30 days at any hospital? Yes Coverage Notice Reviewer: [id number] - Camille Romeo Notice Issued Date-Time: 02/04/2019 12:40 Notice Type: Patient Choice Letter Notice Delivered To: Patient Relationship to Patient: Self Supervisor Photoengraving Name: Delivery Method: HAND - Hand Delivered Ping Days: Prior Verbal Notification: Recipient Understood Notice: Yes Recipient Signature: Yes Med Rec Note Co-signed by Attending: Coverage Notice Comment: Reviewer: [id number] Amena Xie Notice Issued Date-Time: 02/07/2019 10:37 Notice Type: IM Discharge Notice Notice Delivered To: Patient Relationship to Patient: Self Supervisor Photoengraving Name: Delivery Method: HAND - Hand Delivered Ping Days: Prior Verbal Notification: Recipient Understood Notice: Yes Recipient Signature: Yes Med Rec Note Co-signed by Attending: Coverage Notice Comment: Last DP export: 02/07/19 1:11 p Patient Name: MARBIN WILKINS Page 44619 at 1002 All edits/amendments must be made on the electronic document DICTATION DATE: 02/08/19 100 INDUSTRIAL RELATIONS COUNSELOR: FEDERICO 02/08/19 1001 RPT#: [id number] DC DATE: STATUS: ADM IN [facility] [address] [place] [address] END OF REPORT
[2019-02-08 11:06] LABS: INR 1.18 (0.85-1.17); PROTIME 14.5 SECONDS (11.6-15.0)
--- NOTE | 2019-02-08 11:19 | NUR ---
FSBS 123, NO TREATMENT NEEDED AT THIS TIME.
[2019-02-08 11:52] VITALS: BP 138/78
[2019-02-08] MEDS ORDERED: COUMADIN5 MG PO ×2 (12:03→12:49)
[2019-02-08] MEDS ORDERED: LOVENOX80 MG/0.8 SC (12:07)
--- NOTE | 2019-02-08 12:17 | MORECARE ---
CASE MANAGEMENT DISCHARGE SUMMARY PATIENT: MARBIN WILKINS UNIT: [id number] ADM DATE: 02/03/19 AGE: 69 : 49 SEX: F ROOM/BED: D.1207 AUTHOR: DA PIERRE PHYSICIAN: REFERRING PHYSICIAN: STEFANIE OGDEN DO DATE OF SERVICE: 02/08/19 Discharge Plan Patient Name: MARBIN WILKINS Facility: [facility]:[place] : 1950 Planned Disposition: Home Anticipated Discharge Date: Discharge Date: Expected LOS: Initial Reviewer: [id number] Initial Review Date: 02/04/2019 Generated: 02/08/19 1:17 pm Comments DCP- Discharge Planning Updated by [id number]: Wendie Xie on 02/08/19 8:[address] Patient Name: MARBIN WILKINS Admission Status: Elective Accout number: [id number] Admission Date: 02-03-2019 : 1950 Admission Diagnosis: Attending: STEFANIE OGDEN Current LOS: 5 Anticipated DC Date: Planned Disposition: Home Primary Insurance: MEDICARE A & B Discharge Planning Comments: PATIENT TO DC HOME TODAY AND RESUME [facility]. DR. HYMAN WANTS A FOLLOW UP APPOINTMENT WITH HER IN 2 WEEKS. CM TO FOLLOW AND ASSIST. IM SIGNED. Pin Sticker: Wendie Xie DCP- Discharge Planning Updated by [email or web address]: Wendie Xie on 02/07/19 1:[address] Patient Name: MARBIN WILKINS Admission Status: Elective Accout number: [id number] Admission Date: 02-03-2019 : 1950 Admission Diagnosis: Attending: STEFANIE OGDEN Current LOS: 4 Anticipated DC Date: Planned Disposition: Home Primary Insurance: MEDICARE A & B Discharge Planning Comments: CM SPOKE WITH PATIENT AND SHE STATES SHE IS NOT ALLERGIC TO COUMADIN, THAT WAS AN ALLERGY ADDED OVER 30YEARS AGO. STATES WANTS TO TAKE IT VERSUS THE LOVENOX. I SPOKE WITH DR. HYMAN AND SHE STATES TO GIVE HER ONE TIME DOSE COUMADIN 5MG PO AND SEE HOW SHE DOES. IF WORKS WELL WILL ANTICIPATE DC IN THE MORNING. CM TO FOLLOW AND ASSIST. Pin Sticker: Wendie Xie DCP- Discharge Planning Updated by [email or web address]: Camille Romeo on 02/04/19 7:[address] Patient Name: MARBIN WILKINS Admission Status: Elective Accout number: [id number] Admission Date: 02-03-2019 : 1950 Admission Diagnosis: Attending: STEFANIE OGDEN Current LOS: 1 Anticipated DC Date: Planned Disposition: Home Primary Insurance: MEDICARE A & B Discharge Planning Comments: CM met with patient to complete initial dc planning assessment. CM educated patient on the CM role and verbal consent given by patient to complete assessment. Patient lives at home with her son and grandson where she is partially dependent with her care. At discharge patient plans to return home and feels this is a safe discharge. CM discussed availability of home health, rehab services, and medical equipment. Her grandson will drive her home. Patient has [facility] and plans to resume care with them upon discharge. PAYAM signed. Patient denied known discharge needs at this time. CM will continue to follow and will assist as needed with dc plans/needs. Pin Sticker: Camille Romeo DCPIA - Discharge Planning Initial Assessment Updated by [email or web address]: Camille Romeo on 02/04/19 8:26 pm * Is the patient Alert and Oriented? Yes * How many steps to enter\exit or inside your home? * PCP TURNER * Pharmacy [facility] * Preadmission Environment Home with Family * ADLs Partial Dependent * Partial ADLs (Assistance needed) Ambulation * Other Equipment WALKER, CANE, W/C * List name and contact numbers for known caregivers / representatives who currently or will assist patient after discharge: VALE XIAO Beckwith DAUGHTER- [phone] ZION XIAO SON - [phone] * Verbal permission to speak to the caregivers and representatives has been obtained from the patient. Yes * Community resources currently utilized Home Health * Please name any agencies selected above. [facility] * Additional services required to return to the preadmission environment? No * Can the patient safely return to the preadmission environment? Yes * Has this patient been hospitalized within the prior 30 days at any hospital? Yes External Providers External Provider: [facility] Next Contact Date: Service Request Date: Service Type: Resolution: Reviewer: Comments: Coverage Notice Reviewer: [id number] - Camille Romeo Notice Issued Date-Time: 02/04/2019 12:40 Notice Type: Patient Choice Letter Notice Delivered To: Patient Relationship to Patient: Self Casting Operator Helper Name: Delivery Method: HAND - Hand Delivered Ping Days: Prior Verbal Notification: Recipient Understood Notice: Yes Recipient Signature: Yes Med Rec Note Co-signed by Attending: Coverage Notice Comment: Reviewer: [id number] Amena Xie Notice Issued Date-Time: 02/07/2019 10:37 Notice Type: IM Discharge Notice Notice Delivered To: Patient Relationship to Patient: Self Casting Operator Helper Name: Delivery Method: HAND - Hand Delivered Ping Days: Prior Verbal Notification: Recipient Understood Notice: Yes Recipient Signature: Yes Med Rec Note Co-signed by Attending: Coverage Notice Comment: Last DP export: 02/08/19 9:02 a Patient Name: MARBIN WILKINS Page 20638 at 1217 All edits/amendments must be made on the electronic document DICTATION DATE: 02/08/19 1217 SECURITY GUARDS DISPATCHER: FEDERICO 02/08/19 1217 RPT#: [id number] DC DATE: STATUS: ADM IN [facility] [address] [place] [address] END OF REPORT
--- NOTE | 2019-02-08 12:25 | MORECARE ---
CASE MANAGEMENT DISCHARGE SUMMARY PATIENT: MARBIN WILKINS UNIT: [id number] ADM DATE: 02/03/19 AGE: 69 : 49 SEX: F ROOM/BED: D.1207 AUTHOR: DA PIERRE PHYSICIAN: REFERRING PHYSICIAN: STEFANIE OGDEN DO DATE OF SERVICE: 02/08/19 Discharge Plan Patient Name: MARBIN WILKINS Facility: [facility]:[place] : 1950 Planned Disposition: Home Anticipated Discharge Date: Discharge Date: Expected LOS: Initial Reviewer: [id number] Initial Review Date: 02/04/2019 Generated: 02/08/19 1:24 pm Comments DCP- Discharge Planning Updated by [id number]: Wendie Xie on 02/08/19 11:[address] Patient Name: MARBIN WILKINS Admission Status: Elective Accout number: [id number] Admission Date: 02-03-2019 : 1950 Admission Diagnosis: Attending: STEFANIE OGDEN Current LOS: 5 Anticipated DC Date: Planned Disposition: Home Primary Insurance: MEDICARE A & B Discharge Planning Comments: PATIENT TO DC HOME TODAY AND RESUME [facility]. DR. HYMAN WANTS A FOLLOW UP APPOINTMENT WITH HER IN 2 WEEKS. CM TO FOLLOW AND ASSIST. IM SIGNED. Sleeping Car Conductor: Wendie Xie Appended by Wendie Xie on 02/08/2019 12:21 CDT: DR. HYMAN WANTS PATIENT TO HAVE 5MG COUMADIN PO DAILY WITH LOVENOX 80MG BID FOR 1 WEEK. PT INR THURSDAY OR THURSDAY WITH HOME HEALTH OR DR. TURNER. FOLLOW UP WITH DR. HYMAN IN 2 WEEKS. DCP- Discharge Planning Updated by [id number]: Wendie Xie on 02/07/19 1:[address] Patient Name: MARBIN WILKINS Admission Status: Elective Accout number: [id number] Admission Date: 02-03-2019 : 1950 Admission Diagnosis: Attending: STEFANIE OGDEN Current LOS: 4 Anticipated DC Date: Planned Disposition: Home Primary Insurance: MEDICARE A & B Discharge Planning Comments: CM SPOKE WITH PATIENT AND SHE STATES SHE IS NOT ALLERGIC TO COUMADIN, THAT WAS AN ALLERGY ADDED OVER 30YEARS AGO. STATES WANTS TO TAKE IT VERSUS THE LOVENOX. I SPOKE WITH DR. HYMAN AND SHE STATES TO GIVE HER ONE TIME DOSE COUMADIN 5MG PO AND SEE HOW SHE DOES. IF WORKS WELL WILL ANTICIPATE DC IN THE MORNING. CM TO FOLLOW AND ASSIST. Sleeping Car Conductor: Wendie Xie DCP- Discharge Planning Updated by [id number]: Camille Romeo on 02/04/19 7:[address] Patient Name: MARBIN WILKINS Admission Status: Elective Accout number: [id number] Admission Date: 02-03-2019 : 1950 Admission Diagnosis: Attending: STEFANIE OGDEN Current LOS: 1 Anticipated DC Date: Planned Disposition: Home Primary Insurance: MEDICARE A & B Discharge Planning Comments: CM met with patient to complete initial dc planning assessment. CM educated patient on the CM role and verbal consent given by patient to complete assessment. Patient lives at home with her son and grandson where she is partially dependent with her care. At discharge patient plans to return home and feels this is a safe discharge. CM discussed availability of home health, rehab services, and medical equipment. Her grandson will drive her home. Patient has [facility] and plans to resume care with them upon discharge. PAYAM signed. Patient denied known discharge needs at this time. CM will continue to follow and will assist as needed with dc plans/needs. Sleeping Car Conductor: Camille Romeo DCPIA - Discharge Planning Initial Assessment Updated by [id number]: Camille Romeo on 02/04/19 8:26 pm * Is the patient Alert and Oriented? Yes * How many steps to enter\exit or inside your home? * PCP TURNER * Pharmacy [facility] * Preadmission Environment Home with Family * ADLs Partial Dependent * Partial ADLs (Assistance needed) Ambulation * Other Equipment WALKER, CANE, W/C * List name and contact numbers for known caregivers / representatives who currently or will assist patient after discharge: ALETAPIETER Beckwith DAUGHTER- [phone] ZION Beckwith SON - [phone] * Verbal permission to speak to the caregivers and representatives has been obtained from the patient. Yes * Community resources currently utilized Home Health * Please name any agencies selected above. [facility] * Additional services required to return to the preadmission environment? No * Can the patient safely return to the preadmission environment? Yes * Has this patient been hospitalized within the prior 30 days at any hospital? Yes Coverage Notice Reviewer: [id number] Amena Romeo Notice Issued Date-Time: 02/04/2019 12:40 Notice Type: Patient Choice Letter Notice Delivered To: Patient Relationship to Patient: Self Residential Builder Name: Delivery Method: HAND - Hand Delivered Ping Days: Prior Verbal Notification: Recipient Understood Notice: Yes Recipient Signature: Yes Med Rec Note Co-signed by Attending: Coverage Notice Comment: Reviewer: [id number] - Wendie Xie Notice Issued Date-Time: 02/07/2019 10:37 Notice Type: IM Discharge Notice Notice Delivered To: Patient Relationship to Patient: Self Residential Builder Name: Delivery Method: HAND - Hand Delivered Ping Days: Prior Verbal Notification: Recipient Understood Notice: Yes Recipient Signature: Yes Med Rec Note Co-signed by Attending: Coverage Notice Comment: Last DP export: 02/08/19 11:17 a Patient Name: MARBIN WILKINS Page 02120 at 1225 All edits/amendments must be made on the electronic document DICTATION DATE: 02/08/19 1224 EMERGENCY MANAGER: FEDERICO 02/08/19 1224 RPT#: [id number] DC DATE: STATUS: ADM IN [facility] [address] [place] [address] END OF REPORT
--- NOTE | 2019-02-08 13:38 | NUR ---
[facility] CALLED AND ORDERS GIVEN FOR COUMADIN AND LOVENOX ORDER TO FLORES HAWKINS, PHARMACIST.
--- NOTE | 2019-02-08 13:49 | NUR ---
PT DC`D VIA WHEELCHAIR WITH SON.
--- NOTE | 2019-02-08 16:54 | MORECARE ---
CASE MANAGEMENT DISCHARGE SUMMARY PATIENT: MARBIN WILKINS UNIT: [id number] ADM DATE: 02/03/19 AGE: 69 : 49 SEX: F ROOM/BED: D.1207 AUTHOR: DA PIERRE PHYSICIAN: REFERRING PHYSICIAN: STEFANIE OGDEN DO DATE OF SERVICE: 02/08/19 Discharge Plan Patient Name: MARBIN WILKINS Facility: [facility]:[place] : 1950 Planned Disposition: Home Anticipated Discharge Date: Discharge Date: 02/08/2019 Expected LOS: Initial Reviewer: [email or web address] Initial Review Date: 02/04/2019 Generated: 02/08/19 5:53 pm Comments DCP- Discharge Planning Updated by [id number]: Wendie Xie on 02/08/19 11:[address] Patient Name: MARBIN WILKINS Admission Status: Elective Accout number: [id number] Admission Date: 02-03-2019 : 1950 Admission Diagnosis: Attending: STEFANIE OGDEN Current LOS: 5 Anticipated DC Date: Planned Disposition: Home Primary Insurance: MEDICARE A & B Discharge Planning Comments: PATIENT TO DC HOME TODAY AND RESUME [facility]. DR. HYMAN WANTS A FOLLOW UP APPOINTMENT WITH HER IN 2 WEEKS. CM TO FOLLOW AND ASSIST. IM SIGNED. Medical Technologist Microbiology: Wendie Xie Appended by Wendie Xie on 02/08/2019 12:21 CDT: DR. HYMAN WANTS PATIENT TO HAVE 5MG COUMADIN PO DAILY WITH LOVENOX 80MG BID FOR 1 WEEK. PT INR THURSDAY OR THURSDAY WITH HOME HEALTH OR DR. TURNER. FOLLOW UP WITH DR. HYMAN IN 2 WEEKS. DCP- Discharge Planning Updated by [id number]: Wendie Xie on 02/07/19 1:[address] Patient Name: MARBIN WILKINS Admission Status: Elective Accout number: [id number] Admission Date: 02-03-2019 : 1950 Admission Diagnosis: Attending: STEFANIE OGDEN Current LOS: 4 Anticipated DC Date: Planned Disposition: Home Primary Insurance: MEDICARE A & B Discharge Planning Comments: CM SPOKE WITH PATIENT AND SHE STATES SHE IS NOT ALLERGIC TO COUMADIN, THAT WAS AN ALLERGY ADDED OVER 30YEARS AGO. STATES WANTS TO TAKE IT VERSUS THE LOVENOX. I SPOKE WITH DR. HYMAN AND SHE STATES TO GIVE HER ONE TIME DOSE COUMADIN 5MG PO AND SEE HOW SHE DOES. IF WORKS WELL WILL ANTICIPATE DC IN THE MORNING. CM TO FOLLOW AND ASSIST. Medical Technologist Microbiology: Wendie Xie DCP- Discharge Planning Updated by [id number]: Camille Ousmane on 02/04/19 7:[address] Patient Name: MARBIN WILKINS Admission Status: Elective Accout number: [id number] Admission Date: 02-03-2019 : 1950 Admission Diagnosis: Attending: STEFANIE OGDEN Current LOS: 1 Anticipated DC Date: Planned Disposition: Home Primary Insurance: MEDICARE A & B Discharge Planning Comments: CM met with patient to complete initial dc planning assessment. CM educated patient on the CM role and verbal consent given by patient to complete assessment. Patient lives at home with her son and grandson where she is partially dependent with her care. At discharge patient plans to return home and feels this is a safe discharge. CM discussed availability of home health, rehab services, and medical equipment. Her grandson will drive her home. Patient has [facility] and plans to resume care with them upon discharge. PAYAM signed. Patient denied known discharge needs at this time. CM will continue to follow and will assist as needed with dc plans/needs. Medical Technologist Microbiology: Camille Romeo DCPIA - Discharge Planning Initial Assessment Updated by [id number]: Camille Romeo on 02/04/19 8:26 pm * Is the patient Alert and Oriented? Yes * How many steps to enter\exit or inside your home? * PCP TURNER * [facility] * Preadmission Environment Home with Family * ADLs Partial Dependent * Partial ADLs (Assistance needed) Ambulation * Other Equipment WALKER, CANE, W/C * List name and contact numbers for known caregivers / representatives who currently or will assist patient after discharge: VALE XIAO Beckwith DAUGHTER- [phone] ZION Beckwith SON - [phone] * Verbal permission to speak to the caregivers and representatives has been obtained from the patient. Yes * Community resources currently utilized Home Health * Please name any agencies selected above. [facility] * Additional services required to return to the preadmission environment? No * Can the patient safely return to the preadmission environment? Yes * Has this patient been hospitalized within the prior 30 days at any hospital? Yes Coverage Notice Reviewer: [id number] Amena Romeo Notice Issued Date-Time: 02/04/2019 12:40 Notice Type: Patient Choice Letter Notice Delivered To: Patient Relationship to Patient: Self Fruit Tester Name: Delivery Method: HAND - Hand Delivered Ping Days: Prior Verbal Notification: Recipient Understood Notice: Yes Recipient Signature: Yes Med Rec Note Co-signed by Attending: Coverage Notice Comment: Reviewer: [id number] Amena Xie Notice Issued Date-Time: 02/07/2019 10:37 Notice Type: IM Discharge Notice Notice Delivered To: Patient Relationship to Patient: Self Fruit Tester Name: Delivery Method: HAND - Hand Delivered Ping Days: Prior Verbal Notification: Recipient Understood Notice: Yes Recipient Signature: Yes Med Rec Note Co-signed by Attending: Coverage Notice Comment: Last DP export: 02/08/19 11:25 a Patient Name: MARBIN WILKINS Page 76624 at 1654 All edits/amendments must be made on the electronic document DICTATION DATE: 02/08/191652 ASTRONOMY INSTRUCTOR: FEDERICO 02/08/191652 RPT#: [id number] DC DATE:02/08/19 STATUS: DIS IN [facility] [address] [place] [address] END OF REPORT
[2019-02-09] MEDS ORDERED: LEVAQUIN750 MG PO (18:34)
[2019-02-11 03:07] LABS: FACTOR II DNA ANALYSIS Negative (())
== END 2019-02-08 13:50 | disposition home health service (06) | DRG 300 ==
LOC: D.US 12:53 → D.M3 14:07
PROVIDERS: Family Medicine; Internal Medicine Hematology & Oncology; Internal Medicine Nephrology; ADMIT Family Medicine; ATTEND Family Medicine
DX: I82.412 Acute embolism and thrombosis of left femoral vein (principal); D68.9 Coagulation defect, unspecified; I13.0 Hypertensive heart and chronic kidney disease with heart failure and stage 1 through stage 4 chronic kidney disease, or unspecified chronic kidney disease; M87.852 Other osteonecrosis, left femur; M87.851 Other osteonecrosis, right femur; N18.3 Chronic kidney disease, stage 3 (moderate); E11.22 Type 2 diabetes mellitus with diabetic chronic kidney disease; D63.1 Anemia in chronic kidney disease; E11.40 Type 2 diabetes mellitus with diabetic neuropathy, unspecified; I82.890 Acute embolism and thrombosis of other specified veins; I25.10 Atherosclerotic heart disease of native coronary artery without angina pectoris; I50.9 Heart failure, unspecified; F41.8 Other specified anxiety disorders; K31.9 Disease of stomach and duodenum, unspecified; G47.33 Obstructive sleep apnea (adult) (pediatric); I86.3 Vulval varices; K43.9 Ventral hernia without obstruction or gangrene

== ENCOUNTER 2019-02-09 16:07 | Emergency (ER) | payer MEDICARE ==
[~2019-02-09] VITALS: Ht 147.3 cm; Wt 85.9 kg
[~2019-02-09 16:07] MED LIST changes: +COUMADIN5 MG PO; +LOVENOX80 MG/0.8 SC
[2019-02-09 16:17] VITALS: Ht 147.3 cm; Wt 85.9 kg
[2019-02-09 17:06] LABS: BASOPHILS 0.3 % (0-2); EOSINOPHILS 3.8 % (0-7); HEMATOCRIT 31.7 % (36.0-48.0); HEMOGLOBIN 9.7 g/dL (12-16); IMMATURE GRANULOCYTES 0.3 % (0-5); LYMPHOCYTES 29.7 % (15-50); MCH 27.2 pg (26.0-34.0); MCHC 30.6 g/dL (31.0-37.0); MEAN PLATELET VOLUME 10.4 fL (7.4-10.4); MONOCYTES 8.7 % (2-11); NEUTROPHILS 57.2 % (40-80); PLATELET COUNT 156 10x3/uL (130-400); RBC 3.57 10x6/uL (4.00-5.40); RDW 19.1 % (11.5-14.5); WBC 6.3 10x3/uL (4.8-10.8)
[2019-02-09 17:07] LABS: MCV 88.8 fL (80.0-100.0)
[2019-02-09 17:24] LABS: ALBUMIN 3.2 g/dL (3.4-5.0); ALKALINE PHOSPHATASE 163 U/L (46-116); ALT (SGPT) 90 U/L (10-68); BILIRUBIN - TOTAL 0.41 mg/dL (0.2-1.3); CALC OSMOLALITY 279 mosm/kg (275-300); CALCIUM 10.5 mg/dL (8.5-10.1); CARBON DIOXIDE 23.9 mmol/L (21.0-32.0); CHLORIDE - SERUM 106 mmol/L (98-107); CREATININE - SERUM 1.1 mg/dL (0.6-1.3); GLUCOSE 95 mg/dL (74-106); POTASSIUM - SERUM 5.7 mmol/L (3.5-5.1); SODIUM 139 mmol/L (136-145); UREA NITROGEN 17 mg/dL (7-18); eGFR NON AFRICAN AMERICAN 52 mL/min (90-120)
[2019-02-09 17:24] LABS: APPEARANCE HAZY (CLEAR); BILIRUBIN NEGATIVE (NEGATIVE); COLOR STRAW (YELLOW); GLUCOSE NEGATIVE (NEGATIVE); KETONE NEGATIVE (NEGATIVE); NITRITE NEGATIVE (NEGATIVE); PROTEIN NEGATIVE (NEGATIVE); RED CELLS - URINE 0-5 /hpf (0-5); UROBILINOGEN NORMAL (NORMAL); WHITE CELLS - URINE 0-5 /hpf (NEGATIVE)
[2019-02-09 17:25] LABS: BACTERIA MODERATE /hpf (NEGATIVE)
[2019-02-09 17:28] LABS: TROPONIN-I < 0.017 ng/mL (0.000-0.060)
[2019-02-09] MEDS ORDERED: LEVAQUIN750 MG PO (18:34)
[2019-02-09 19:40] VITALS: BP 132/74
== END 2019-02-09 19:41 | disposition home or self-care (01) ==
LOC: D.ER 16:07
PROVIDERS: Family Medicine
DX: N39.0 Urinary tract infection, site not specified (principal); I50.9 Heart failure, unspecified; I25.10 Atherosclerotic heart disease of native coronary artery without angina pectoris; J45.909 Unspecified asthma, uncomplicated; E11.9 Type 2 diabetes mellitus without complications

== ENCOUNTER 2019-02-18 12:14 | Inpatient (IN) | payer MEDICARE ==
[~2019-02-18] VITALS: Ht 144.8 cm; Wt 80.7 kg
[~2019-02-18 12:14] MED LIST changes: +LEVAQUIN750 MG PO
[2019-02-18 13:04] LABS: BASOPHILS 0.3 % (0-2); EOSINOPHILS 2.1 % (0-7); HEMATOCRIT 29.1 % (36.0-48.0); HEMOGLOBIN 9.2 g/dL (12-16); IMMATURE GRANULOCYTES 0.1 % (0-5); LYMPHOCYTES 17.7 % (15-50); MCH 27.5 pg (26.0-34.0); MCHC 31.6 g/dL (31.0-37.0); MCV 86.9 fL (80.0-100.0); MEAN PLATELET VOLUME 10.5 fL (7.4-10.4); MONOCYTES 6.3 % (2-11); NEUTROPHILS 73.5 % (40-80); PLATELET COUNT 214 10x3/uL (130-400); RBC 3.35 10x6/uL (4.00-5.40); RDW 18.2 % (11.5-14.5); WBC 7.6 10x3/uL (4.8-10.8)
[2019-02-18 13:14] LABS: APTT 44.4 SECONDS (22.8-39.4); INR 1.96 (0.85-1.17); PROTIME 21.7 SECONDS (11.6-15.0)
[2019-02-18 13:16] LABS: CALC OSMOLALITY 289 mosm/kg (275-300); CALCIUM 9.4 mg/dL (8.5-10.1); CARBON DIOXIDE 27.6 mmol/L (21.0-32.0); CHLORIDE - SERUM 107 mmol/L (98-107); CREATININE - SERUM 2.7 mg/dL (0.6-1.3); GLUCOSE 81 mg/dL (74-106); POTASSIUM - SERUM 4.8 mmol/L (3.5-5.1); SODIUM 141 mmol/L (136-145); UREA NITROGEN 41 mg/dL (7-18); eGFR NON AFRICAN AMERICAN 18 mL/min (90-120)
[2019-02-18 13:33] LABS: ALBUMIN 3.3 g/dL (3.4-5.0); ALKALINE PHOSPHATASE 147 U/L (46-116); ALT (SGPT) 43 U/L (10-68); AMYLASE - SERUM 41 U/L (25-115); BILIRUBIN - TOTAL 0.26 mg/dL (0.2-1.3); CKMB 0.9 U/L (0.0-3.6); CREATINE KINASE 91 UL (21-215); LIPASE 251 U/L (73-393); PRO BNP 159 pg/mL (0-125); PROTEIN - SERUM 6.8 g/dL (6.4-8.2); TROPONIN-I < 0.017 ng/mL (0.000-0.060)
[2019-02-18 14:04] VITALS: BP 96/48
[2019-02-18 14:19] LABS: APPEARANCE HAZY (CLEAR); BACTERIA FEW /hpf (NEGATIVE); BILIRUBIN NEGATIVE (NEGATIVE); COLOR YELLOW (YELLOW); GLUCOSE NEGATIVE (NEGATIVE); KETONE NEGATIVE (NEGATIVE); MUCUS <1+ /lpf (NONE SEEN); NITRITE NEGATIVE (NEGATIVE); PROTEIN NEGATIVE (NEGATIVE); RED CELLS - URINE RARE /hpf (0-5); UROBILINOGEN NORMAL (NORMAL); WHITE CELLS - URINE 0-5 /hpf (NEGATIVE)
[2019-02-18 19:11] LABS: % SATURATION 21 % (15-55); IRON 54 ug/dl (35-150); TOTAL IRON BIND CAPACITY 251 ug/dl (260-445); UNSAT IRON BIND CAPACITY 197 ug/dl (150-375)
[2019-02-18 20:29] VITALS: BP 121/72
--- NOTE | 2019-02-18 22:06 | NUR ---
SPOKE WITH CHRISTOPHER NORTON CONCERNING PAIN MEDICATION FOR PATIENT. WAS INSTRUCTED TO PUT IN AN ORDER FOR NORCO 5 Q6PRN FOR PAIN, ORDER URINE DRUG SCREEN AND ORDER FOR 5 MG OF COUMADIN.
[2019-02-18 23:11] VITALS: BP 121/72; BMI 38.6
[2019-02-19 00:05] VITALS: BP 105/69
[2019-02-19 04:00] VITALS: BP 115/95
[2019-02-19 06:31] LABS: UDS - AMPHET NEGATIVE QUAL (NEGATIVE); UDS - BARB NEGATIVE QUAL (NEGATIVE); UDS - BENZO NEGATIVE QUAL (NEGATIVE); UDS - COCAINE NEGATIVE QUAL (NEGATIVE); UDS - OPIATE POSITIVE QUAL (NEGATIVE); UDS - PCP NEGATIVE QUAL (NEGATIVE); UDS - THC NEGATIVE QUAL (NEGATIVE)
[2019-02-19 07:21] LABS: APPEARANCE CLEAR (CLEAR); BILIRUBIN NEGATIVE (NEGATIVE); COLOR YELLOW (YELLOW); GLUCOSE NEGATIVE (NEGATIVE); KETONE NEGATIVE (NEGATIVE); NITRITE NEGATIVE (NEGATIVE); PROTEIN NEGATIVE (NEGATIVE); SPECIFIC GRAVITY 1.025 (1.005-1.020); UROBILINOGEN NORMAL (NORMAL)
[2019-02-19 07:23] LABS: BACTERIA FEW /hpf (NEGATIVE); EPITHELIAL CELLS 0-5 /hpf (0-5); RED CELLS - URINE OCC /hpf (0-5); WHITE CELLS - URINE 0-5 /hpf (NEGATIVE)
[2019-02-19 07:37] LABS: BASOPHILS 0.1 % (0-2); HEMATOCRIT 28.4 % (36.0-48.0); IMMATURE GRANULOCYTES 0.1 % (0-5); LYMPHOCYTES 15.4 % (15-50); MCH 27.4 pg (26.0-34.0); MCHC 31.7 g/dL (31.0-37.0); MCV 86.6 fL (80.0-100.0); MEAN PLATELET VOLUME 10.2 fL (7.4-10.4); MONOCYTES 6.1 % (2-11); NEUTROPHILS 75.3 % (40-80); PLATELET COUNT 201 10x3/uL (130-400); RBC 3.28 10x6/uL (4.00-5.40); RDW 18.2 % (11.5-14.5); WBC 7.1 10x3/uL (4.8-10.8)
--- NOTE | 2019-02-19 07:39 | NUR ---
PT AWAKE AND ORIENTED, C/O PAINN BUT UNDERSTANDS SHE CAN NOT HAVE A PAIN PILL AT THIS TIME D/T HER ADMITTING CIRCUMSTANCES. NO OTHER COMPLAINTS/CONCERNS, ALL QUESTIONS ANSWERED.
[2019-02-19 07:42] VITALS: BP 127/76
[2019-02-19 07:53] LABS: ANION GAP 11.9 mmol/L (8-16); BILIRUBIN - TOTAL 0.22 mg/dL (0.2-1.3); CALCIUM 9.1 mg/dL (8.5-10.1); CARBON DIOXIDE 26.4 mmol/L (21.0-32.0); POTASSIUM - SERUM 4.3 mmol/L (3.5-5.1); PROTEIN - SERUM 6.5 g/dL (6.4-8.2)
[2019-02-19 07:55] LABS: CREATININE - SERUM 1.8 mg/dL (0.6-1.3)
[2019-02-19 11:40] LABS: INR 1.97 (0.85-1.17); PROTIME 21.8 SECONDS (11.6-15.0)
[2019-02-19 11:59] VITALS: BMI 38.5
[2019-02-19 12:37] VITALS: Ht 144.8 cm; Wt 80.7 kg
--- NOTE | 2019-02-19 15:57 | NUR ---
PLACED 22G RFA I/V. OTHER I/V STILL INTACT AND WORKING BUT THIS NEW ONE DOES NOT BEEP WITH EVERY SLIGHT MOVEMENT.
--- NOTE | 2019-02-19 18:07 | NUR ---
PT IS ABLE TO AMBULATE WITH ONLY STANDBY ASSIST. MOVES FREELY WITH MINIMAL DIFFICULTY FROM PREVIOUS SURGERY. ALERT AND ORIENTED X4, NO CONFUSION NOTED AT ANY TIME. PT IS EASY TO ARROUSE WHEN SLEEPING. PT CLEANED SELF WITH WIPES AND WASHRAGS, PUT ON ALL CLEAN ATIRE AND IS CURRENTLY IN BEDSIDE RECLINER. CL IN REACH, RECLINED.
--- NOTE | 2019-02-19 19:26 | NUR ---
UP IN RECLINER, PLEASANT MOOD AND AFFECT, SHOWS NO S/S OF ANY ACUTE DISTRESS. DENIES ANY PAIN AT THIS TIME. IV TO RIGHT FOREARM IS PATENT WITH FLUIDS INFUSING VIA ORDERS. WILL NOTE ANY CHANGE.
[2019-02-19 19:55] VITALS: BP 133/74
--- NOTE | 2019-02-19 21:43 | NUR ---
I have reviewed this patient and I concur with the Shift Assessment completed by the Licensed Practical Nurse today this shift.
--- NOTE | 2019-02-20 01:00 | NUR ---
RESTING WELL THIS SHIFT, WILL NOTE ANY CHANGE.
[2019-02-20 04:43] VITALS: BP 142/78
--- NOTE | 2019-02-20 05:38 | NUR ---
ASSISTED TO RESTROOM, HAD GOOD OUTPUT WITHOUT DIFFICULTY. SAYS SHE IS WORRIED ABOUT HER SON, HE ISN'T RETURNING CALLS, REMINDED PT IT WAS 0530 AND SHE SAID, MAYBE HES NOT AT WORK THEN. PT IS SATISFIED AT THIS TIME.
[2019-02-20 06:57] LABS: BASOPHILS 0.2 % (0-2); EOSINOPHILS 2.8 % (0-7); HEMATOCRIT 28.3 % (36.0-48.0); HEMOGLOBIN 8.9 g/dL (12-16); IMMATURE GRANULOCYTES 0.2 % (0-5); LYMPHOCYTES 28.3 % (15-50); MCH 27.2 pg (26.0-34.0); MCHC 31.4 g/dL (31.0-37.0); MCV 86.5 fL (80.0-100.0); MEAN PLATELET VOLUME 10.5 fL (7.4-10.4); MONOCYTES 9.4 % (2-11); NEUTROPHILS 59.1 % (40-80); PLATELET COUNT 220 10x3/uL (130-400); RBC 3.27 10x6/uL (4.00-5.40); RDW 18.4 % (11.5-14.5); WBC 5.8 10x3/uL (4.8-10.8)
[2019-02-20 07:02] LABS: INR 1.76 (0.85-1.17); PROTIME 19.9 SECONDS (11.6-15.0)
[2019-02-20 07:08] LABS: ALBUMIN 2.8 g/dL (3.4-5.0); ANION GAP 11.3 mmol/L (8-16); BILIRUBIN - TOTAL 0.24 mg/dL (0.2-1.3); CALCIUM 8.9 mg/dL (8.5-10.1); POTASSIUM - SERUM 4.3 mmol/L (3.5-5.1); PROTEIN - SERUM 6.3 g/dL (6.4-8.2)
--- NOTE | 2019-02-20 07:28 | NUR ---
PT RESTING PEACEFULLY, DID NOT WAKE I ENTERED. DID NOT FURTHER DISTURB AT THIS TIME. BREATHS EVEN, REGULAR, AND UNLABORED. NO SIGNS OR SYMPTOMS OF ACUTE DISTRES NOTED AT THIS TIME. CL IN REACH, SRX2.
--- NOTE | 2019-02-20 12:58 | NUR ---
SPOKE WITH DR. MCDONALD. STATES HE WILL BE IN TO SEE THE PATIENT LATER TODAY IF HE COMES BACK TO [place]OWN, OTHERWISE IT MAY HAVE TO WAIT UNTIL IN THE MORNING. HE STATES IF DR. SPARKS IS IN THE HOSPITAL HE WILL CALL HIM AND LET HIM KNOW TO COME BY.
--- NOTE | 2019-02-20 19:13 | NUR ---
UP IN BED, BREATHING TREATMENT IN USE. HAS NO COMPLAINTS AT THIS TIME. DENIES ANY PAIN AT THE MOMENT, WILL REASSESS.
[2019-02-20 19:59] VITALS: BP 177/97
[2019-02-20 23:52] VITALS: BP 158/68
[2019-02-21 05:04] VITALS: BP 159/83
[2019-02-21 07:10] LABS: BASOPHILS 0.3 % (0-2); EOSINOPHILS 2.9 % (0-7); HEMATOCRIT 28.1 % (36.0-48.0); IMMATURE GRANULOCYTES 0.9 % (0-5); LYMPHOCYTES 31.4 % (15-50); MCH 27.3 pg (26.0-34.0); MCV 85.2 fL (80.0-100.0); MONOCYTES 8.7 % (2-11); NEUTROPHILS 55.8 % (40-80); PLATELET COUNT 199 10x3/uL (130-400); RDW 18.4 % (11.5-14.5); WBC 5.9 10x3/uL (4.8-10.8)
--- NOTE | 2019-02-21 07:10 | NUR ---
REPORT RECEIVED FROM COMPLIANCE COUNSEL AND PATIENT CARE ASSUMED. PATIENT SITTING UP IN BS CHAIR AWAKE AND ALERT. PATIENT IS STABLE AND VSS. PATIENT DENIES ANY NEEDS OR PAIN. PATIENT UP TO BR. PATIENT HAD NORMAL BM AND URINATED. STOOL SPECIMEN COLLECTED PER ORDER. PATIENT BACK TO BS CHAIR. SET UP FOR BREAKFAST MEAL. CALL LIGHT IN REACH.
[2019-02-21 07:21] LABS: INR 1.73 (0.85-1.17); PROTIME 19.6 SECONDS (11.6-15.0)
[2019-02-21 07:51] LABS: ANION GAP 11.9 mmol/L (8-16); BILIRUBIN - TOTAL 0.25 mg/dL (0.2-1.3); CALCIUM 9.8 mg/dL (8.5-10.1); CARBON DIOXIDE 24.3 mmol/L (21.0-32.0); CREATININE - SERUM 0.9 mg/dL (0.6-1.3); POTASSIUM - SERUM 4.2 mmol/L (3.5-5.1); PROTEIN - SERUM 6.4 g/dL (6.4-8.2)
[2019-02-21 08:00] VITALS: BP 142/84
--- NOTE | 2019-02-21 10:49 | NUR ---
PATIENT SITTING IN BS CHAIR WITH CALL LIGHT IN REACH. PATIENT IS STABLE AND DENIES ANY NEEDS OR PAIN.
[2019-02-21 11:30] VITALS: BP 138/86
--- NOTE | 2019-02-21 11:48 | NUR ---
REHAB PRESCREENING Rehab referral received and chart reviewed. This patient is well known to our rehab. She has not had PT this admission. On 02/19 PT noted that "this patient was previously admitted due to DVT but upon admission in the ER, List of medication dows not include Anticoagulant. Nurse notified. Will Mobilize patient when cleared from Nurse agreeable." This patient has not had any PT noted with gait on this admission. Rehab will continue to follow for PT evaluation and ambulation in order to assess admission criteria. Thank you for this referral! Estefany Pablo, CLAIMS SPECIALIST Rehab PD
[2019-02-21 19:46] VITALS: BP 149/85
--- NOTE | 2019-02-21 19:46 | NUR ---
PATIENT RESTING IN BED AND DENIES NEEDS AT THIS TIME. BED IN LOWEST POSITION AND CALL LIGHT WITHIN REACH. VSS. ENCOURAGED THE PATIENT TO CALL IF SHE HAS NEEDS. WILL CONTINUE TO MONITOR.
--- NOTE | 2019-02-21 20:11 | NUR ---
ADMINISTERED MEDS PER ORDERS. PATIENT REQUESTED PAIN MEDICATION. PATIENT DENIES OTHER NEEDS AT THIS TIME. BED IN LOWEST POSITON AND CALL LIGHT WITHIN REACH. ENCOURAGED THE PATIENT TO CALL IF SHE HAS NEEDS. WILL CONTINUE TO MONITOR.
[2019-02-22 00:03] VITALS: BP 157/70
[2019-02-22 04:19] VITALS: BP 168/88
--- NOTE | 2019-02-22 07:15 | NUR ---
PT RESTING IN BED, VSS AND WNL. DENIES ANY NEEDS AT THIS TIME, WILL CONT TO FOLLOW POC
[2019-02-22 07:31] LABS: BASOPHILS 0.2 % (0-2); EOSINOPHILS 2.2 % (0-7); HEMATOCRIT 28.7 % (36.0-48.0); HEMOGLOBIN 9.2 g/dL (12-16); IMMATURE GRANULOCYTES 1.1 % (0-5); LYMPHOCYTES 21.9 % (15-50); MCH 27.2 pg (26.0-34.0); MCHC 32.1 g/dL (31.0-37.0); MCV 84.9 fL (80.0-100.0); MEAN PLATELET VOLUME 10.3 fL (7.4-10.4); MONOCYTES 9.1 % (2-11); NEUTROPHILS 65.5 % (40-80); PLATELET COUNT 231 10x3/uL (130-400); RBC 3.38 10x6/uL (4.00-5.40); RDW 18.2 % (11.5-14.5); WBC 6.5 10x3/uL (4.8-10.8)
[2019-02-22 07:34] LABS: ALBUMIN 3.2 g/dL (3.4-5.0); ALKALINE PHOSPHATASE 140 U/L (46-116); ALT (SGPT) 35 U/L (10-68); BILIRUBIN - TOTAL 0.35 mg/dL (0.2-1.3); CALC OSMOLALITY 273 mosm/kg (275-300); CALCIUM 10.3 mg/dL (8.5-10.1); CARBON DIOXIDE 22.6 mmol/L (21.0-32.0); CHLORIDE - SERUM 107 mmol/L (98-107); CREATININE - SERUM 0.8 mg/dL (0.6-1.3); GLUCOSE 96 mg/dL (74-106); PROTEIN - SERUM 6.6 g/dL (6.4-8.2); SODIUM 138 mmol/L (136-145); eGFR NON AFRICAN AMERICAN 75 mL/min (90-120)
[2019-02-22 07:35] LABS: INR 2.06 (0.85-1.17); PROTIME 22.5 SECONDS (11.6-15.0)
[2019-02-22 07:37] LABS: UREA NITROGEN 7 mg/dL (7-18)
[2019-02-22 07:40] VITALS: BP 165/104
--- NOTE | 2019-02-22 09:31 | MORECARE ---
CASE MANAGEMENT DISCHARGE SUMMARY PATIENT: MARBIN WILKINS UNIT: [id number] ADM DATE: 02/18/19 AGE: 69 : 49 SEX: F ROOM/BED: D.1209 AUTHOR: DA PIERRE PHYSICIAN: REFERRING PHYSICIAN: LEESA GALAVIZ MD DATE OF SERVICE: 02/22/19 Discharge Plan Patient Name: MARBIN WILKINS Facility: [facility]:[place] : 1950 Planned Disposition: Home Health Service Anticipated Discharge Date: Discharge Date: Expected LOS: Initial Reviewer: [email or web address] Initial Review Date: 02/22/2019 Generated: 02/22/19 10:30 am Coverage Notice Reviewer: [id number] Amena Xie Notice Issued Date-Time: 02/22/2019 9:23 Notice Type: IM Discharge Notice Notice Delivered To: Patient Relationship to Patient: Rental Agent Name: Delivery Method: HAND - Hand Delivered Ping Days: Prior Verbal Notification: Recipient Understood Notice: Yes Recipient Signature: Yes Med Rec Note Co-signed by Attending: Coverage Notice Comment: Reviewer: [email or web address] Amena Xie Notice Issued Date-Time: 02/22/2019 9:23 Notice Type: Patient Choice Letter Notice Delivered To: Patient Relationship to Patient: Rental Agent Name: Delivery Method: HAND - Hand Delivered Ping Days: Prior Verbal Notification: Recipient Understood Notice: Yes Recipient Signature: Yes Med Rec Note Co-signed by Attending: Coverage Notice Comment: ONEL RASHEED. Patient Name: MARBIN WILKINS Page 10058 at 0931 All edits/amendments must be made on the electronic document DICTATION DATE: 02/22/19929 PLANNING SPECIALIST: FEDERICO 02/22/19929 RPT#: [id number] DC DATE: STATUS: ADM IN [place] [address] [place] [address] END OF REPORT
--- NOTE | 2019-02-22 12:00 | NUR ---
PT RESTING IN BED, FAMILY AT BEDSIDE. DENIES ANY NEEDS AT THIS TIME, WILL CONT TO FOLLOW POC
--- NOTE | 2019-02-22 14:03 | NUR ---
Nutrition Follow-up: Chart reviewed. Diet: Diabetic 2400 kitty PO intake: ~88% average x last 6 meals; reports appetite is improving. She is reporting some nausea. Labs reviewed. Significant meds: lasix, coumadin, merrem, baclofen, metformin, levaquin, SSI. Nursing skin assessment reviewed. Wt: 178# (02/19/19). +BM Continue current nutrition regimen. RD Following.
[2019-02-22] MEDS ORDERED: COUMADIN7.5 MG PO (14:27)
--- NOTE | 2019-02-22 14:43 | CN ---
PATIENT NAME:MARBIN WILKINS MEDICAL RECORD: [id number] : [birth year] LOCATION:D.M3 D.1209 ADMIT DATE: 02/18/19 ACCOUNT: [id number] CONSULTING PHYSICIAN: OVIDIO DIAZ MD REFERRING PHYSICIAN: ELENA GALAVIZ MD DATE OF CONSULTATION: 02/19/2019 CONSULT REQUESTING PHYSICIAN: Elena Galaviz MD REASON FOR CONSULTATION: Pneumonia and mental status changes. HISTORY OF PRESENT ILLNESS: Ms. Everardo Spaulding is a 69-year-old -Nepalese female who has a history of smoking, most likely underlying chronic obstructive pulmonary disease. The patient was brought into the ER yesterday with shortness of breath and the patient was confused. Workup was negative. Now, she is more awake and alert. She has cough. She has shortness of breath. Denies any green color sputum production. Denies any fever and chills. Her chest wall hurts when she coughs. REVIEW OF SYSTEMS: As in history of present illness. PAST MEDICAL HISTORY: 1. Asthma. 2. COPD. 3. Diabetes mellitus. 4. Coronary artery disease status post stent placement. 5. Congestive heart failure. 6. Coronary artery disease status post angioplasty and stent placement. 7. She has obstructive sleep apnea. She is on BiPAP. 8. Gastroesophageal reflux disease. There is a history of deep venous thrombosis. 9. Arthritis. 10. Anxiety, depression. PAST SURGICAL HISTORY: Hysterectomy. ALLERGIES: SHE IS ALLERGIC TO PENICILLIN, TETRACYCLINE, TYLENOL, ASPIRIN, DIAZEPAM, OXYCODONE, PENTAZOCINE. MEDICATION: On [employer] is reviewed. PERSONAL AND SOCIAL HISTORY: The patient is an ex-smoker. She is a nondrinker. FAMILY HISTORY: Noncontributory. PHYSICAL EXAMINATION: GENERAL: Now, the patient is lying comfortably in bed. She is not in acute distress. She has audible wheeze. VITAL SIGNS: The blood pressure is 127/76, pulse is 91, respirations 16, temperature 98.8, and SpO2 is 94% on nasal cannula. HEENT: Conjunctivae are pink. Sclerae are not icteric. NECK: Supple, no JVD. CHEST: Excursion minimal with prolonged expiration with wheezing. HEART: Rhythm regular, normal sound, no murmur. ABDOMEN: Soft, bowel sounds present. No hepatosplenomegaly. CONSULT REPORT [id number] MARBIN WILKINS RECTAL: Deferred. EXTREMITIES: No cyanosis, no clubbing, no pedal edema. CENTRAL NERVOUS SYSTEM: Now, the patient is awake and alert. There is no obvious cranial nerve abnormality. The gait was not tested. CHEST RADIOGRAPH: With increased pulmonary congestion, bibasilar infiltrate. CT abdomen confirmed bibasilar atelectasis and infiltrate. CT head was negative. LABORATORY DATA: CBC: WBC 7.1, hemoglobin 9, hematocrit 28.4, and platelet count 201. Chemistry: Sodium 143, potassium 4.3, BUN is 43, creatinine 1.8, and glucose 142. The urine tox screen positive for opiates. IMPRESSION: 1. Pneumonia bibasilar most likely hospital-acquired pneumonia with the patient recent hospitalization. 2. The patient's mental status changes secondary to metabolic encephalopathy. The workup was negative. 3. Acute exacerbation of chronic obstructive pulmonary disease. 4. Asthma. 5. Hypoxic respiratory failure. 6. History of deep venous thrombosis. She is on Coumadin. Dr. Arredondo follows. 7. Ex-smoker. RECOMMENDATION: 1. Albuterol/ipratropium nebulizer. 2. Brovana, budesonide nebulizer. 3. Singulair. 4. We will start on Levaquin and meropenem to cover for HAP. 5. Acute renal failure. The nephrology follows: 6. We will use the BiPAP at night and titrate to the patient comfort. Follow up labs and chest radiograph. Dr. Galaviz, thank you for involving me in the care of Ms. Everardo Spaulding. TRANSINT:[id number] Voice Confirmation ID: [id number] DOCUMENT ID: [id number] OVIDOI DIAZ MD at 1443 CC: [id number] DICTATION DATE: 02/19/19 1314 WASTEWATER TREATMENT OPERATOR: 02/19/198 ADM IN [place] [id number] [place] [address]
--- NOTE | 2019-02-22 14:46 | MORECARE ---
CASE MANAGEMENT DISCHARGE SUMMARY PATIENT: MARBIN WILKINS UNIT: [id number] ADM DATE: 02/18/19 AGE: 69 : 49 SEX: F ROOM/BED: D.1209 AUTHOR: DA PIERRE PHYSICIAN: REFERRING PHYSICIAN: LEESA GALAVIZ MD DATE OF SERVICE: 02/22/19 Discharge Plan Patient Name: MARBIN WILKINS Facility: [facility]:[place] : 1950 Planned Disposition: Home Health Service Anticipated Discharge Date: Discharge Date: Expected LOS: Initial Reviewer: [email or web address] Initial Review Date: 02/22/2019 Generated: 02/22/19 3:45 pm External Providers External Provider: [facility] Next Contact Date: Service Request Date: Service Type: Resolution: Reviewer: Comments: Coverage Notice Reviewer: [email or web address] Xie Notice Issued Date-Time: 02/22/2019 9:23 Notice Type: IM Discharge Notice Notice Delivered To: Patient Relationship to Patient: Prototype Machine Operator Name: Delivery Method: HAND - Hand Delivered Ping Days: Prior Verbal Notification: Recipient Understood Notice: Yes Recipient Signature: Yes Med Rec Note Co-signed by Attending: Coverage Notice Comment: Reviewer: [id number] Xie Notice Issued Date-Time: 02/22/2019 9:23 Notice Type: Patient Choice Letter Notice Delivered To: Patient Relationship to Patient: Prototype Machine Operator Name: Delivery Method: HAND - Hand Delivered Ping Days: Prior Verbal Notification: Recipient Understood Notice: Yes Recipient Signature: Yes Med Rec Note Co-signed by Attending: Coverage Notice Comment: ONEL Abdi DP export: 02/22/19 8:31 Patient Name: MARBIN WILKINS Page [phone] at 1446 All edits/amendments must be made on the electronic document DICTATION DATE: 02/22/191444 POWER GENERATING PLANT OPERATOR: FEDERICO 02/22/191444 RPT#: [id number] DC DATE: STATUS: ADM IN [facility] [address] [place] [address] END OF REPORT
--- NOTE | 2019-02-22 16:18 | NUR ---
DISCHARGE INSTRUCTIONS REVIEWED WITH PT AND ALL QUESTIONS ANSWERED. PIV TO LEFT SHOULDER AND RIGHT FA REMOVED WITH CATHETER TIP INTACT. PT ASSISTED TO FRONT OF HOSPITAL VIA WHEELCHAIR WHERE SHE LEFT WITH FAMILY
--- NOTE | 2019-02-22 17:43 | MORECARE ---
CASE MANAGEMENT DISCHARGE SUMMARY PATIENT: MARBIN WILKINS UNIT: [id number] ADM DATE: 02/18/19 AGE: 69 : 49 SEX: F ROOM/BED: D.1209 AUTHOR: DA PIERRE PHYSICIAN: REFERRING PHYSICIAN: LEESA GALAVIZ MD DATE OF SERVICE: 02/22/19 Discharge Plan Patient Name: MARBIN WILKINS Facility: [facility]:[place] : 1950 Planned Disposition: Home Health Service Anticipated Discharge Date: Discharge Date: 02/22/2019 Expected LOS: Initial Reviewer: [email or web address] Initial Review Date: 02/22/2019 Generated: 02/22/19 6:43 pm Comments DCP- Discharge Planning Updated by [email or web address]: Wendie Xie on 02/22/19 4:[address] Patient Name: MARBIN WILKINS Admission Status: ER Accout number: [id number] Admission Date: 02-18-2019 : 1950 Admission Diagnosis: Attending: LEESA GALAVIZ Current LOS: 4 Anticipated DC Date: Planned Disposition: Home Health Service Primary Insurance: MEDICARE A & B Discharge Planning Comments: ONEL RASHEED CM FAXED DC TO [facility]. Cabin Crew: Wendie Xie Coverage Notice Reviewer: [id number] Amena Xie Notice Issued Date-Time: 02/22/2019 9:23 Notice Type: IM Discharge Notice Notice Delivered To: Patient Relationship to Patient: Technical Instructor Name: Delivery Method: HAND - Hand Delivered Ping Days: Prior Verbal Notification: Recipient Understood Notice: Yes Recipient Signature: Yes Med Rec Note Co-signed by Attending: Coverage Notice Comment: Reviewer: [email or web address] Amena Xie Notice Issued Date-Time: 02/22/2019 9:23 Notice Type: Patient Choice Letter Notice Delivered To: Patient Relationship to Patient: Technical Instructor Name: Delivery Method: HAND - Hand Delivered Ping Days: Prior Verbal Notification: Recipient Understood Notice: Yes Recipient Signature: Yes Med Rec Note Co-signed by Attending: Coverage Notice Comment: ONEL RASHEED. Last DP export: 02/22/19 1:46 Patient Name: MARBIN WILKINS Page [id number] at 1743 All edits/amendments must be made on the electronic document DICTATION DATE: 02/22/191742 TERRAZZO WORKER: FEDERICO 02/22/191742 RPT#: [id number] DC DATE:02/22/19 STATUS: DIS IN [facility] [address] [place] [address] END OF REPORT
== END 2019-02-22 16:19 | disposition home health service (06) | DRG 682 ==
LOC: D.ER → EDBD 12:14 → D.M3 15:44
PROVIDERS: Family Medicine; ADMIT Emergency Medicine; ATTEND Emergency Medicine
DX: N17.9 Acute kidney failure, unspecified (principal); J18.9 Pneumonia, unspecified organism; J96.01 Acute respiratory failure with hypoxia; G93.41 Metabolic encephalopathy; J44.0 Chronic obstructive pulmonary disease with (acute) lower respiratory infection; J44.1 Chronic obstructive pulmonary disease with (acute) exacerbation; I82.402 Acute embolism and thrombosis of unspecified deep veins of left lower extremity; M87.852 Other osteonecrosis, left femur; M87.851 Other osteonecrosis, right femur; Y95 Nosocomial condition; E11.65 Type 2 diabetes mellitus with hyperglycemia; K44.9 Diaphragmatic hernia without obstruction or gangrene; I50.9 Heart failure, unspecified; I25.10 Atherosclerotic heart disease of native coronary artery without angina pectoris; D64.9 Anemia, unspecified; K21.9 Gastro-esophageal reflux disease without esophagitis; F32.9 Major depressive disorder, single episode, unspecified; E86.0 Dehydration; Z87.891 Personal history of nicotine dependence; I86.2 Pelvic varices

== ENCOUNTER → 2019-02-23 13:26 | Outpatient (CLI) | payer MEDICARE ==
[2019-02-19 12:37] VITALS: BMI 38.5
[~2019-02-23 13:26] MED LIST changes: +COUMADIN7.5 MG PO
[2019-02-23 15:25] LABS: INR 2.23 (0.85-1.17)
== END | disposition home or self-care (01) ==
LOC: D.LABREF 13:26
PROVIDERS: ATTEND Internal Medicine Hematology & Oncology
DX: I82.409 Acute embolism and thrombosis of unspecified deep veins of unspecified lower extremity (principal); Z79.01 Long term (current) use of anticoagulants

== ENCOUNTER 2019-09-07 09:00 | Outpatient (CLI) | payer MEDICARE ==
[2019-02-19 12:37] VITALS: BMI 38.5
== END 2019-09-07 10:00 | disposition home or self-care (01) ==
LOC: D.MAMMO 09:00
PROVIDERS: ATTEND Nurse Practitioner Family
DX: Z12.31 Encounter for screening mammogram for malignant neoplasm of breast (principal)

== ENCOUNTER → 2019-09-24 12:42 | Outpatient (CLI) | payer MEDICARE ==
[2019-02-19 12:37] VITALS: BMI 38.5
== END | disposition home or self-care (01) ==
LOC: D.LABREF 12:42
PROVIDERS: ATTEND Internal Medicine Pulmonary Disease
DX: R06.02 Shortness of breath (principal); J44.9 Chronic obstructive pulmonary disease, unspecified

== ENCOUNTER → 2019-09-26 07:45 | Outpatient (CLI) | payer MEDICARE ==
[2019-02-19 12:37] VITALS: BMI 38.5
== END | disposition home or self-care (01) ==
LOC: D.RT 07:45
PROVIDERS: ATTEND Internal Medicine Pulmonary Disease
DX: J45.909 Unspecified asthma, uncomplicated (principal)

== ENCOUNTER 2019-11-07 16:10 | Inpatient (IN) | payer MEDICARE ==
[~2019-11-07] VITALS: Ht 144.8 cm; Wt 90.0 kg
[2019-11-07 18:19] LABS: BASOPHILS 0.3 % (0-2); EOSINOPHILS 2.1 % (0-7); HEMATOCRIT 35.2 % (36.0-48.0); HEMOGLOBIN 11.3 g/dL (12-16); IMMATURE GRANULOCYTES 0.3 % (0-5); LYMPHOCYTES 31.8 % (15-50); MCH 27.6 pg (26.0-34.0); MCHC 32.1 g/dL (31.0-37.0); MCV 86.1 fL (80.0-100.0); MEAN PLATELET VOLUME 9.9 fL (7.4-10.4); NEUTROPHILS 58.5 % (40-80); RBC 4.09 10x6/uL (4.00-5.40); RDW 16.6 % (11.5-14.5); WBC 6.1 10x3/uL (4.8-10.8)
[2019-11-07 18:27] LABS: PLATELET COUNT 143 10x3/uL (130-400)
[2019-11-07 18:31] LABS: APTT 47.9 SECONDS (22.8-39.4); INR 3.33 (0.85-1.17); PROTIME 33.2 SECONDS (11.6-15.0)
[2019-11-07 18:41] LABS: CALC OSMOLALITY 279 mosm/kg (275-300); CARBON DIOXIDE 28.4 mmol/L (21.0-32.0); CHLORIDE - SERUM 101 mmol/L (98-107); CREATININE - SERUM 1.4 mg/dL (0.6-1.3); GLUCOSE 137 mg/dL (74-106); POTASSIUM - SERUM 3.8 mmol/L (3.5-5.1); SODIUM 136 mmol/L (136-145); UREA NITROGEN 28 mg/dL (7-18); eGFR NON AFRICAN AMERICAN 39 mL/min (90-120)
[2019-11-07 18:56] LABS: ALBUMIN 3.6 g/dL (3.4-5.0); ALKALINE PHOSPHATASE 131 U/L (30-120); ALT (SGPT) 51 U/L (10-68); BILIRUBIN - TOTAL 0.27 mg/dL (0.2-1.3); CKMB 1.7 U/L (0.0-3.6); CREATINE KINASE 189 UL (21-215); PRO BNP 210 pg/mL (0-125)
[2019-11-07 18:59] LABS: TROPONIN-I < 0.017 ng/mL (0.000-0.060)
[2019-11-07 20:40] VITALS: BP 107/66
[2019-11-07 21:42] VITALS: BP 107/66
[2019-11-07 22:40] VITALS: BP 124/65
[2019-11-07 23:39] LABS: % SATURATION 15 % (15-55); IRON 46 ug/dl (35-150); TOTAL IRON BIND CAPACITY 296 ug/dl (260-445); UNSAT IRON BIND CAPACITY 250 ug/dl (150-375)
[2019-11-07 23:40] VITALS: BP 123/55
[2019-11-08] VITALS (7 sets, daily range): BP systolic 118–155; BP diastolic 7–73; Ht 144.8 cm; Wt 90.0 kg
[2019-11-08 00:05] LABS: MAGNESIUM - SERUM 1.4 mg/dL (1.8-2.4)
[2019-11-08 04:42] LABS: BASOPHILS 0.2 % (0-2); EOSINOPHILS 0 % (0-7); HEMATOCRIT 33.7 % (36.0-48.0); HEMOGLOBIN 10.7 g/dL (12-16); IMMATURE GRANULOCYTES 0.5 % (0-5); LYMPHOCYTES 9.5 % (15-50); MCHC 31.8 g/dL (31.0-37.0); MCV 84.9 fL (80.0-100.0); MEAN PLATELET VOLUME 10.5 fL (7.4-10.4); MONOCYTES 0.8 % (2-11); PLATELET COUNT 148 10x3/uL (130-400); RBC 3.97 10x6/uL (4.00-5.40); RDW 16.7 % (11.5-14.5); WBC 6.6 10x3/uL (4.8-10.8)
[2019-11-08 05:07] LABS: CALCIUM 9.2 mg/dL (8.5-10.1); CREATININE - SERUM 1.4 mg/dL (0.6-1.3); MAGNESIUM - SERUM 1.6 mg/dL (1.8-2.4)
--- NOTE | 2019-11-08 05:07 | NUR ---
UP TO BATHROOM- VOIDED WITHOUT DIFFICULTY. SOME INCREASED WHEEZING NOTED. STATES "IT'S TIME FOR ME TO HAVE ANOTHER BREATHING TREATMENT.
--- NOTE | 2019-11-08 07:47 | NUR ---
ASSUMED CARE OF PT. RESTING UPRIGHT IN BED. NO C/O EXCEPT "A COUGH" DENIES CP OR SOB. VSS.
[2019-11-08 11:59] LABS: CKMB 1.9 U/L (0.0-3.6); TROPONIN-I < 0.017 ng/mL (0.000-0.060)
[2019-11-08 12:04] LABS: CREATINE KINASE 247 UL (21-215)
[2019-11-08] MEDS ORDERED: PEPCID AC20 MG PO (12:34)
[2019-11-08] MEDS ORDERED: CRESTOR20 MG PO (12:36)
--- NOTE | 2019-11-08 12:41 | NUR ---
REPORT TO JER QUARLES
[2019-11-08 18:21] LABS: PROTIME 38.7 SECONDS (11.6-15.0)
--- NOTE | 2019-11-08 18:21 | NUR ---
FAMILY AT BEDSIDE.PATIENT WITHOUT NEEDS.CONT PLAN OF CARE
[2019-11-08 18:26] LABS: CKMB 2.9 U/L (0.0-3.6)
[2019-11-08 18:31] LABS: CREATINE KINASE 319 UL (21-215); TROPONIN-I < 0.017 ng/mL (0.000-0.060)
[2019-11-08 18:34] LABS: INR 4.07 (0.85-1.17)
--- NOTE | 2019-11-08 20:00 | NUR ---
UP TO BATHROOM AND HANDWASHING STATION, STANDBY ASSIST. PERFORMED ORAL HYGIENE INDEPENDENTLY. NO WEAKNESS NOTED, BUT PT SAT UP ON SIDE OF BED TO CATCH BREATH UPON RESTING. A&0 X 4. DENIES PAIN/N/V/D. ICEWATER GIVEN PER REQUEST. INFORMED OF NEED FOR SPUTUM AND STOOL SPECIMENS, GIVEN COLLECTION CONTAINERS. VERBALIZED UNDERSTANDING. CTM.
[2019-11-09] VITALS: BP 143/78
[2019-11-09 00:07] LABS: CREATINE KINASE 322 UL (21-215)
[2019-11-09 00:08] LABS: TROPONIN-I < 0.017 ng/mL (0.000-0.060)
--- NOTE | 2019-11-09 02:41 | NUR ---
I have reviewed this patient and I concur with the Shift Assessment completed by the Licensed Practical Nurse today this shift.
[2019-11-09 04:00] VITALS: BP 157/72
[2019-11-09 06:11] LABS: BASOPHILS 0 % (0-2); EOSINOPHILS 0 % (0-7); HEMATOCRIT 34.2 % (36.0-48.0); HEMOGLOBIN 10.9 g/dL (12-16); IMMATURE GRANULOCYTES 0.5 % (0-5); LYMPHOCYTES 8.1 % (15-50); MCH 26.7 pg (26.0-34.0); MCHC 31.9 g/dL (31.0-37.0); MCV 83.8 fL (80.0-100.0); MEAN PLATELET VOLUME 10.7 fL (7.4-10.4); MONOCYTES 4.2 % (2-11); NEUTROPHILS 87.2 % (40-80); PLATELET COUNT 168 10x3/uL (130-400); RBC 4.08 10x6/uL (4.00-5.40); RDW 16.8 % (11.5-14.5)
[2019-11-09 06:17] LABS: INR 4.58 (0.85-1.17); PROTIME 42.4 SECONDS (11.6-15.0); WBC 11.1 10x3/uL (4.8-10.8)
[2019-11-09 06:22] LABS: ANION GAP 12.9 mmol/L (8-16); CARBON DIOXIDE 24.8 mmol/L (21.0-32.0); CREATININE - SERUM 1.1 mg/dL (0.6-1.3); MAGNESIUM - SERUM 1.7 mg/dL (1.8-2.4); POTASSIUM - SERUM 4.7 mmol/L (3.5-5.1)
[2019-11-09 09:50] VITALS: BP 131/68
--- NOTE | 2019-11-09 11:20 | NUR ---
resting in bed, no distress noted, iv infusing per left shoulder, cont to monitorsugars
[2019-11-09 13:28] VITALS: BP 148/73
[2019-11-09 18:15] VITALS: BP 157/90
[2019-11-09 20:00] VITALS: BP 144/80
--- NOTE | 2019-11-09 20:37 | NUR ---
REC'D. CHGE SHIFT WALKING ROUNDS IN BED FAMILY AT BEDSIDE DENIES ANY RESP. DIFFICULTY AT PRESENT TIME STATES SOB ON MINIMAL EXERTION WILL CONTINUE TO MONITOR FOR ANY CHGES. IN RESP STATUS AND FOLLOW CURRENT PLAN OF CARE.
[2019-11-10] VITALS: BP 124/74
--- NOTE | 2019-11-10 03:56 | NUR ---
I have reviewed this patient and I concur with the Shift Assessment completed by the Licensed Practical Nurse today this shift.
[2019-11-10 04:00] VITALS: BP 157/90
[2019-11-10 04:59] LABS: BASOPHILS 0 % (0-2); EOSINOPHILS 0 % (0-7); HEMATOCRIT 34.3 % (36.0-48.0); HEMOGLOBIN 10.9 g/dL (12-16); LYMPHOCYTES 7.7 % (15-50); MCH 26.6 pg (26.0-34.0); MCHC 31.8 g/dL (31.0-37.0); MCV 83.7 fL (80.0-100.0); MEAN PLATELET VOLUME 9.8 fL (7.4-10.4); NEUTROPHILS 88.3 % (40-80); PLATELET COUNT 166 10x3/uL (130-400); RDW 16.8 % (11.5-14.5); WBC 10.9 10x3/uL (4.8-10.8)
[2019-11-10 05:05] LABS: INR 3.77 (0.85-1.17); PROTIME 36.5 SECONDS (11.6-15.0)
[2019-11-10 05:19] LABS: ANION GAP 13.4 mmol/L (8-16); CARBON DIOXIDE 23.3 mmol/L (21.0-32.0); CREATININE - SERUM 1.2 mg/dL (0.6-1.3); MAGNESIUM - SERUM 1.7 mg/dL (1.8-2.4); POTASSIUM - SERUM 4.7 mmol/L (3.5-5.1)
[2019-11-10 08:00] VITALS: BP 187/80
--- NOTE | 2019-11-10 11:19 | NUR ---
REC'D SITTING ON SIDE OF BED AWAKE AND ALERT. RESP EVEN AND UNLABORED WITH NO DISTRESS NOTED. CAN EXPRESS NEEDS AND WANTS.NO C/O NOTED OR VOICED. ASSESSMENT COMPLETED. C/L IN REACH AT BEDSIDE.
[2019-11-10 12:00] VITALS: BP 165/94
[2019-11-10 16:00] VITALS: BP 165/63
[2019-11-10 20:00] VITALS: BP 139/61
--- NOTE | 2019-11-10 20:18 | NUR ---
I have reviewed this patient and I concur with the Shift Assessment completed by the Licensed Practical Nurse today this shift.
[2019-11-11] VITALS: BP 173/95
[2019-11-11 04:00] VITALS: BP 149/83
[2019-11-11 06:41] LABS: BASOPHILS 0.1 % (0-2); EOSINOPHILS 0 % (0-7); HEMATOCRIT 34.7 % (36.0-48.0); HEMOGLOBIN 11.2 g/dL (12-16); IMMATURE GRANULOCYTES 1.2 % (0-5); LYMPHOCYTES 11.5 % (15-50); MCH 26.8 pg (26.0-34.0); MCHC 32.3 g/dL (31.0-37.0); MEAN PLATELET VOLUME 10.2 fL (7.4-10.4); MONOCYTES 3.5 % (2-11); NEUTROPHILS 83.7 % (40-80); PLATELET COUNT 164 10x3/uL (130-400); RBC 4.18 10x6/uL (4.00-5.40); RDW 16.8 % (11.5-14.5); WBC 8.7 10x3/uL (4.8-10.8)
[2019-11-11 06:52] LABS: ANION GAP 16.3 mmol/L (8-16); CALCIUM 10.3 mg/dL (8.5-10.1); CARBON DIOXIDE 20.9 mmol/L (21.0-32.0); MAGNESIUM - SERUM 1.5 mg/dL (1.8-2.4); POTASSIUM - SERUM 5.2 mmol/L (3.5-5.1)
[2019-11-11 06:56] LABS: INR 2.47 (0.85-1.17); PROTIME 26.4 SECONDS (11.6-15.0)
[2019-11-11] MEDS ORDERED: MUCINEX600 MG PO (09:16)
[2019-11-11] MEDS ORDERED: PREDNISONE10 MG PO (09:17)
[2019-11-11] MEDS ORDERED: IPRAT-ALBUT 0.5-3 ML INH (09:17)
[2019-11-11] MEDS ORDERED: FEXOFENADINE HC60 MG PO (09:17)
[2019-11-11] MEDS ORDERED: ZITHROMAX500 MG PO (09:17)
[2019-11-11] MEDS ORDERED: Tessalon Perle PO (09:18)
[2019-11-11] MEDS ORDERED: BROVANA15 MCG/2 M INH (09:18)
--- NOTE | 2019-11-11 09:32 | MORECARE ---
CASE MANAGEMENT DISCHARGE SUMMARY PATIENT: MARBIN WILKINS UNIT: [id number] ADM DATE: 11/08/19 AGE: 69 : 49 SEX: F ROOM/BED: D.2207 AUTHOR: DA PIERRE PHYSICIAN: REFERRING PHYSICIAN: REYES VEGA MD DATE OF SERVICE: 11/11/19 Discharge Plan Patient Name: MARBIN WILKINS Facility: [facility]:[place] : 1950 Planned Disposition: Home Anticipated Discharge Date: Discharge Date: Expected LOS: Initial Reviewer: [email or web address] Initial Review Date: 11/07/2019 Generated: 11/11/19 10:32 am Patient Name: MARBIN WILKINS Page [phone] at 0932 All edits/amendments must be made on the electronic document DICTATION DATE: 11/11/19931 LACEWORKER: FEDERICO 11/11/19 09 RPT#: [id number] DC DATE: STATUS: ADM IN [facility] [address] [place] [address] END OF REPORT
--- NOTE | 2019-11-11 09:39 | MORECARE ---
CASE MANAGEMENT DISCHARGE SUMMARY PATIENT: MARBIN WILKINS UNIT: [id number] ADM DATE: 11/08/19 AGE: 69 : 49 SEX: F ROOM/BED: D.2207 AUTHOR: DA PIERRE PHYSICIAN: REFERRING PHYSICIAN: REYES VEGA MD DATE OF SERVICE: 11/11/19 Discharge Plan Patient Name: MARBIN WILKINS Facility: [facility]:[place] : 1950 Planned Disposition: Home Anticipated Discharge Date: Discharge Date: Expected LOS: Initial Reviewer: [email or web address] Initial Review Date: 11/07/2019 Generated: 11/11/19 10:38 am Comments DCP- Discharge Planning Updated by [email or web address]: Janki Lancaster on 11/11/19 8:[address] Patient Name: MARBIN WILKINS Admission Status: ER Accout number: [id number] Admission Date: 11-08-2019 : 1950 Admission Diagnosis:SHORTNESS OF BREATH Attending: REYES JOHNSTON Current LOS: 3 Anticipated DC Date: Planned Disposition: Home Primary Insurance: MEDICARE A & B Discharge Planning Comments: CM met with patient to complete initial dc planning assessment. CM educated patient on the CM role and verbal consent given by patient to complete assessment. Patient lives at home with her son where she is independent with her care. At discharge patient plans to return home and feels this is a safe discharge. CM discussed availability of home health, rehab services, and medical equipment. She has a home CPAP machine (aero care) nebulizer, walker, wheelchair, cane, glucometer at home. She does not have home O2, we did a walk test and she did not qualify for O2. She was 95% on RA at rest and 94% when she walked. [facility] served and explained. Patient denied known discharge needs at this time. CM will continue to follow and will assist as needed with dc plans/needs. Electrical System Specialist: Janki Lancaster DCPIA - Discharge Planning Initial Assessment Updated by [email or web address]: Janki Lancaster on 11/11/19 9:33 am * Is the patient Alert and Oriented? Yes * How many steps to enter\exit or inside your home? * PCP JOHNNY * [facility] * Preadmission Environment Home with Family * ADLs Independent * Equipment Cane CPAP Glucometer Nebulizer Rolling Walker Walker Wheelchair * List name and contact numbers for known caregivers / representatives who currently or will assist patient after discharge: [employer] (SON) [phone] * Verbal permission to speak to the caregivers and representatives has been obtained from the patient. N/A * Community resources currently utilized None * Additional services required to return to the preadmission environment? Yes * Can the patient safely return to the preadmission environment? Yes * Has this patient been hospitalized within the prior 30 days at any hospital? No Coverage Notice Reviewer: [email or web address] Amena Lancaster Notice Issued Date-Time: 11/11/2019 9:20 Notice Type: IM Discharge Notice Notice Delivered To: Patient Relationship to Patient: Infantry Senior Sergeant Name: Delivery Method: HAND - Hand Delivered Ping Days: Prior Verbal Notification: Recipient Understood Notice: Yes Recipient Signature: Yes Med Rec Note Co-signed by Attending: Coverage Notice Comment: Last DP export: 11/11/19 8:32 a Patient Name: MARBIN WILKINS Page [phone] at 0939 All edits/amendments must be made on the electronic document DICTATION DATE: 11/11/19938 RESEARCH ADVISOR: FEDERICO 11/11/19938 RPT#: [id number] DC DATE: STATUS: ADM IN [facility] [address] [place] [address] END OF REPORT
--- NOTE | 2019-11-11 11:27 | NUR ---
REC'D SITTIG ON SIDE OF BED AWAKE AND ALERT. RESP EVEN AND UNLABORED WITH NO DISTRESS NOTED. CAN EXPRESS NEED AND WANTS NO C/O NOTED OR VOICED. ASSESSMENT COMPLETED. C/L IN REACH AT BEDSIDE.
--- NOTE | 2019-11-11 12:34 | NUR ---
DC HOME AT THIS TIME WITH ALL PERSONAL BELONGING. VOICES UNDERSTSANDING OF DC INSTRUCTION. STABLE CONDITION UPON DEPARTURE.
--- NOTE | 2019-11-12 09:44 | MORECARE ---
CASE MANAGEMENT DISCHARGE SUMMARY PATIENT: MARBIN WILKINS UNIT: [id number] ADM DATE: 11/08/19 AGE: 69 : [birth year] SEX: F ROOM/BED: D.2207 AUTHOR: DA PIERRE PHYSICIAN: REFERRING PHYSICIAN: REYES VEGA MD DATE OF SERVICE: 11/12/19 Discharge Plan Patient Name: MARBIN WILKINS Facility: [facility]:[place] : 1950 Planned Disposition: Home Anticipated Discharge Date: Discharge Date: 11/11/2019 Expected LOS: Initial Reviewer: [email or web address] Initial Review Date: 11/07/2019 Generated: 11/12/19 10:43 am Comments DCP- Discharge Planning Updated by [email or web address]: Janki Lancaster on 11/11/19 8:[address] Patient Name: MARBIN WILKINS Admission Status: ER Accout number: [id number] Admission Date: 11-08-2019 : 1950 Admission Diagnosis:SHORTNESS OF BREATH Attending: REYES JOHNSTON Current LOS: 3 Anticipated DC Date: Planned Disposition: Home Primary Insurance: MEDICARE A & B Discharge Planning Comments: CM met with patient to complete initial dc planning assessment. CM educated patient on the CM role and verbal consent given by patient to complete assessment. Patient lives at home with her son where she is independent with her care. At discharge patient plans to return home and feels this is a safe discharge. CM discussed availability of home health, rehab services, and medical equipment. She has a home CPAP machine (aero care) nebulizer, walker, wheelchair, cane, glucometer at home. She does not have home O2, we did a walk test and she did not qualify for O2. She was 95% on RA at rest and 94% when she walked. [facility] served and explained. Patient denied known discharge needs at this time. CM will continue to follow and will assist as needed with dc plans/needs. Numerical Control Operator: Janki Lancaster DCPIA - Discharge Planning Initial Assessment Updated by [email or web address]: Janki Lancaster on 11/11/19 9:33 am * Is the patient Alert and Oriented? Yes * How many steps to enter\exit or inside your home? * PCP TURNER * Pharmacy [facility] * Preadmission Environment Home with Family * ADLs Independent * Equipment Cane CPAP Glucometer Nebulizer Rolling Walker Walker Wheelchair * List name and contact numbers for known caregivers / representatives who currently or will assist patient after discharge: [employer] (SON) [phone] * Verbal permission to speak to the caregivers and representatives has been obtained from the patient. N/A * Community resources currently utilized None * Additional services required to return to the preadmission environment? Yes * Can the patient safely return to the preadmission environment? Yes * Has this patient been hospitalized within the prior 30 days at any hospital? No Coverage Notice Reviewer: [email or web address] Amena Lancaster Notice Issued Date-Time: 11/11/2019 9:20 Notice Type: IM Discharge Notice Notice Delivered To: Patient Relationship to Patient: Photographer Still Name: Delivery Method: HAND - Hand Delivered Ping Days: Prior Verbal Notification: Recipient Understood Notice: Yes Recipient Signature: Yes Med Rec Note Co-signed by Attending: Coverage Notice Comment: Last DP export: 11/11/19 8:39 a Patient Name: MARBIN WILKINS Page [id number] at 0944 All edits/amendments must be made on the electronic document DICTATION DATE: 11/12/19942 CONTACT LENS BLOCKER: FEDERICO 11/12/19942 RPT#: [id number] DC DATE:11/11/19 STATUS: DIS IN [address] [place] [address] END OF REPORT
[2019-11-12 15:10] LABS: IMMUNOGLOBULIN E <2 IU/mL (6-495)
== END 2019-11-11 12:36 | disposition home or self-care (01) | DRG 202 ==
LOC: D.ER 16:10 → OBSVTIME 20:10 → D.EDHOLD 20:10 → D.MS 20:10 → D.EDHOLD 20:10 → D.MS 11-08 12:25
PROVIDERS: Family Medicine; Internal Medicine Pulmonary Disease; ADMIT Family Medicine Adult Medicine; ATTEND Family Medicine Adult Medicine
DX: J45.901 Unspecified asthma with (acute) exacerbation (principal); J44.1 Chronic obstructive pulmonary disease with (acute) exacerbation; N17.9 Acute kidney failure, unspecified; E11.65 Type 2 diabetes mellitus with hyperglycemia; E11.42 Type 2 diabetes mellitus with diabetic polyneuropathy; K21.9 Gastro-esophageal reflux disease without esophagitis; F41.8 Other specified anxiety disorders; M19.90 Unspecified osteoarthritis, unspecified site; K44.9 Diaphragmatic hernia without obstruction or gangrene; I25.10 Atherosclerotic heart disease of native coronary artery without angina pectoris; E11.22 Type 2 diabetes mellitus with diabetic chronic kidney disease; N18.9 Chronic kidney disease, unspecified; D50.9 Iron deficiency anemia, unspecified; D63.1 Anemia in chronic kidney disease

== ENCOUNTER → 2019-12-09 12:17 | Outpatient (CLI) | payer MEDICARE ==
[2019-11-08 13:57] VITALS: BMI 42.9
[~2019-12-09 12:17] MED LIST changes: +BROVANA15 MCG/2 M INH; +FEXOFENADINE HC60 MG PO; +IPRAT-ALBUT 0.5-3 ML INH; +MUCINEX600 MG PO; +PEPCID AC20 MG PO; +PREDNISONE10 MG PO; +Tessalon Perle PO; +ZITHROMAX500 MG PO
== END | disposition home or self-care (01) ==
LOC: D.LAB 12:17
PROVIDERS: ATTEND Internal Medicine Pulmonary Disease
DX: Z11.59 Encounter for screening for other viral diseases (principal)

== ENCOUNTER 2020-01-19 10:07 | Emergency (ER) | payer MEDICARE ==
[~2020-01-19] VITALS: Ht 144.8 cm; Wt 88.6 kg
[2020-01-19 10:21] VITALS: Ht 144.8 cm; Wt 88.6 kg
[2020-01-19 10:48] LABS: BASOPHILS 0.1 % (0-2); EOSINOPHILS 0.1 % (0-7); HEMOGLOBIN 12.1 g/dL (12-16); IMMATURE GRANULOCYTES 0.3 % (0-5); LYMPHOCYTES 5.5 % (15-50); MCH 27.1 pg (26.0-34.0); MCHC 32.7 g/dL (31.0-37.0); MEAN PLATELET VOLUME 9.7 fL (7.4-10.4); MONOCYTES 3.6 % (2-11); NEUTROPHILS 90.4 % (40-80); PLATELET COUNT 182 10x3/uL (130-400); RBC 4.46 10x6/uL (4.00-5.40); RDW 17.1 % (11.5-14.5)
[2020-01-19 10:55] LABS: CALC OSMOLALITY 282 mosm/kg (275-300); CHLORIDE - SERUM 104 mmol/L (98-107); CREATININE - SERUM 1.2 mg/dL (0.6-1.3); GLUCOSE 150 mg/dL (74-106); POTASSIUM - SERUM 4.1 mmol/L (3.5-5.1); SODIUM 138 mmol/L (136-145); UREA NITROGEN 23 mg/dL (7-18); eGFR NON AFRICAN AMERICAN 47 mL/min (90-120)
[2020-01-19 11:02] LABS: ALBUMIN 3.5 g/dL (3.4-5.0); ALKALINE PHOSPHATASE 143 U/L (30-120); ALT (SGPT) 39 U/L (10-68); AMYLASE - SERUM 25 U/L (25-115); BILIRUBIN - TOTAL 0.78 mg/dL (0.2-1.3)
[2020-01-19 11:04] LABS: APTT 39.9 SECONDS (22.8-39.4); INR 1.84 (0.85-1.17); LIPASE 45 U/L (73-393); TROPONIN-I < 0.017 ng/mL (0.000-0.060)
[2020-01-19 11:24] LABS: CKMB 0.4 U/L (0.0-3.6); CREATINE KINASE 71 UL (21-215); PRO BNP 653 pg/mL (0-125); TROPONIN-I < 0.017 ng/mL (0.000-0.060)
[2020-01-19 11:43] LABS: BACTERIA FEW /HPF (NONE SEEN); BILIRUBIN NEGATIVE (NEGATIVE); EPITHELIAL CELLS 0-5 /hpf (0-5); KETONE NEGATIVE (NEGATIVE); NITRITE NEGATIVE (NEGATIVE)
[2020-01-19 13:01] LABS: C-REACTIVE PROTEIN 13.3 mg/dL (0.0-0.9)
[2020-01-19] MEDS ORDERED: ZPAK PO (13:58)
[2020-01-19] MEDS ORDERED: MACROBID100 MG PO (13:58)
[2020-01-19] MEDS ORDERED: DECADRON4 MG PO (14:00)
[2020-01-19 16:00] VITALS: BP 117/72
== END 2020-01-19 16:00 | disposition home or self-care (01) ==
LOC: D.ER 10:07
PROVIDERS: Family Medicine
DX: D72.829 Elevated white blood cell count, unspecified (principal); Z20.828 Contact with and (suspected) exposure to other viral communicable diseases; E11.9 Type 2 diabetes mellitus without complications; I50.9 Heart failure, unspecified; J45.909 Unspecified asthma, uncomplicated; K21.9 Gastro-esophageal reflux disease without esophagitis; Z79.4 Long term (current) use of insulin; R50.9 Fever, unspecified; R05 Cough

== ENCOUNTER 2020-07-30 08:00 | Day surgery (SDC) | payer MEDICARE ==
[~2020-07-30] VITALS: Ht 144.8 cm; Wt 86.4 kg
[~2020-07-30 08:00] MED LIST changes: +DECADRON4 MG PO; +MACROBID100 MG PO; +ZPAK PO
[2020-07-30 08:28] LABS: ANION GAP 13.6 mmol/L (8-16); CALCIUM 10.7 mg/dL (8.5-10.1); CARBON DIOXIDE 23.4 mmol/L (21.0-32.0); CREATININE - SERUM 0.9 mg/dL (0.6-1.3)
[2020-07-30 08:33] LABS: HEMATOCRIT 34.1 % (36.0-48.0); MCH 25.9 pg (26.0-34.0); MCHC 32.3 g/dL (31.0-37.0); MCV 80.2 fL (80.0-100.0); MEAN PLATELET VOLUME 10.3 fL (7.4-10.4); RBC 4.25 10x6/uL (4.00-5.40); WBC 4.7 10x3/uL (4.8-10.8)
[2020-07-30 08:49] LABS: APTT 30.6 SECONDS (22.8-39.4); INR 1.31 (0.85-1.17); PROTIME 15.1 SECONDS (11.6-15.0)
[2020-07-30] MEDS ORDERED: SYMBICORT 16010.2 GM INH (08:52)
[2020-07-30 09:10] VITALS: BP 117/48; Ht 144.8 cm; Wt 86.4 kg
--- NOTE | 2020-07-30 12:38 | NUR ---
DC INSTRUCTIONS GIVEN TO PT. STATES UNDRESTANDING. DC'D IV CATH FULLY INTACT. PT LEFT UNIT VIA WC AT 1226
--- NOTE | 2020-07-31 15:15 | OP ---
PATIENT NAME: MARBIN CERVANTES MEDICAL RECORD: [id number] :[birth year] LOCATION:[place] ADMISSION DATE: SURGEON: PIEDAD BIGGS MD DATE OF OPERATION: 07/30/2020 PROCEDURE: Upper endoscopy. PREOPERATIVE DIAGNOSIS: Dysphagia. MEDICATION: Propofol per anesthesia. Upper endoscopy was performed. The endoscope was advanced through the mouth and advanced to the second part of the duodenum. The proximal and mid esophagus were normal. In the distal esophagus was an esophageal ulcer that was linear esophageal ulcer. There was also distal esophagitis. In the distal esophagus was a mild esophageal stricture. This was dilated with an 18, 19, 20 mm balloon. In the gastric body was erythema consistent with gastritis. Random gastric biopsies were taken. The duodenum was normal. The patient tolerated the procedure well. There were no immediate complications. FINAL DIAGNOSES: Linear esophagitis, esophageal ulcer, mild esophageal stricture dilated with an 18, 19, 20 mm balloon. Gastritis. Biopsies taken. Duodenum normal. PLAN: Check histology results. Advance diet. I will write a prescription for Protonix for this patient and give it to her at discharge. Follow up in GI office. TRANSINT:[id number] Voice Confirmation ID: [id number] DOCUMENT ID: [id number] PIEDAD BIGGS MD at 1515 CC: [id number] DICTATION DATE: 07/30/20 112 PAVING RAMMER: 07/30/202123 [facility] 07/30/20 [address] [place] [address]
== END 2020-07-30 12:26 | disposition home or self-care (01) ==
LOC: D.OPS 08:00
PROVIDERS: Anesthesiology; ATTEND Internal Medicine Gastroenterology
DX: R13.10 Dysphagia, unspecified (principal); K22.10 Ulcer of esophagus without bleeding; K22.2 Esophageal obstruction; R11.0 Nausea

== ENCOUNTER → 2020-08-10 09:12 | Outpatient (CLI) | payer MEDICARE ==
[2020-07-30 09:10] VITALS: BMI 41.2
== END | disposition home or self-care (01) ==
LOC: D.RAD 06-08 09:00
PROVIDERS: ATTEND Internal Medicine Gastroenterology
DX: R19.5 Other fecal abnormalities (principal); Z80.0 Family history of malignant neoplasm of digestive organs